=== PATIENT | female | born 1955 | race Caucasian/White ===

== ENCOUNTER 2019-11-16 22:37 | Inpatient (IN) | payer BC ==
[2019-11-16 23:12] LABS: BASO % 1.7 % (0-2.0); EOS % 0.7 % (0-4.5); HEMATOCRIT 42.2 % (32.4-45.2); HEMOGLOBIN 13.8 GM/dl (10.7-15.3); LYMPH % 17.4 % (8-40); MCH 27.8 pg (25.7-33.7); MCHC 32.6 g/dl (32.0-36.0); MEAN CELL VOLUME 85.1 fl (80-96); MONO % 6.7 % (3.8-10.2); NEUT % 73.5 % (42.8-82.8); PLATELET COUNT 267 K/MM3 (134-434); RBC 4.96 M/mm3 (3.60-5.2); RDW 13.6 % (11.6-15.6); WHITE BLOOD COUNT 16.6 K/mm3 (4.0-10.8)
--- NOTE | 2019-11-16 23:25 | PDOC ---
Documentation entered by Yamilex Hermosillo SCRIBE, acting as scribe for Davion Miller MD. Davion Miller MD: This documentation has been prepared by the Jaimee valles Xhesika, SCRIBE, under my direction and personally reviewed by me in its entirety. I confirm that the documentation accurately reflects all work, treatment, procedures, and medical decision making performed by me. History of Present Illness - General Chief Complaint: Injury Stated Complaint: LESION/PAIN LT 1ST TOE Time Seen by Provider: 11/16/19 22:39 History Source: Patient Exam Limitations: No Limitations - History of Present Illness Initial Comments: 11/16/19 22:57 The patient is a 64 year old female with a significant PMH of DM, HTN, HLD, Pacemaker, Lung Ca (s/p lumpectomy and chemo, currently in remission) arthritis , neuropathy who presents to the emergency department for Left first toe pain, erythema, and lesion. The patient states she was cutting her toenails 4 days ago (11/12/2019) because of an ingrown toenail. Pt reports yesterday her L toe was erythematous, however, today the patient woke up and noticed a blister on her L toe prompting her arrival to the ED. The patient denies chest pain, shortness of breath, headache and dizziness. Denies fever, chills, cough, nausea, vomiting. Allergies: NKDA PCP: Rodney Villegas Past History - Past Medical History Allergies/Adverse Reactions: Allergies Allergy/AdvReac Type Severity Reaction Status Date / Time No Known Allergies Allergy Unverified 11/16/19 23:46 Home Medications: Ambulatory Orders Aspirin [Aspirin EC] 81 mg PO DAILY 11/16/19 Folic Acid 1 mg PO DAILY 11/16/19 Insulin Glargine,Hum.rec.anlog [Lantus] 19 unit SQ HS 11/16/19 Insulin Lispro [Humalog] 15 unit SQ TID 11/16/19 Lisinopril 30 mg PO DAILY 11/16/19 Metformin HCl [Glucophage] 500 mg PO BID 11/16/19 Naproxen [Naprosyn -] 500 mg PO BID PRN 11/16/19 Pregabalin 50 mg PO BID 11/16/19 Rosuvastatin Calcium 20 mg PO HS 11/16/19 Tramadol HCl 50 mg PO PRN PRN 11/16/19 Review of Systems - Review of Systems Able to Perform ROS?: Yes Comments:: 11/16/19 22:57 Constitutional - Pt denies Fever, Chills, weakness, HEENT: denies vision changes, sore throat Respiratory: Denies cough, sob, hemoptysis Cardiac: denies chest pain, palpitations, lightheadedness, leg swelling Abd/GI: denies abd pain, nausea, vomiting, blood per rectum, melena, diarrhea : denies dysuria, frequency, discharge Musculskelatal - denies back pain, joint swelling. +Left Great toe pain and lesion. skin - denies bruising, erythema, rash neurological: denies headache, numbness, focal weakness, tingling, ataxia, weakness hematologic: denies anemia, easy bruising, easy bleeding *Physical Exam - Physical Exam 11/16/19 23:20 GENERAL: The patient is awake, alert, and fully oriented, Nontoxic - in no acute distress. HEAD: Normocephalic, atraumatic. EYES: extraocular movements intact, sclera anicteric, conjunctiva clear. ENT: Normal voice, Moist mucous membranes. NECK: Normal range of motion, supple LUNGS: Breath sounds equal, clear to auscultation bilaterally. No wheezes, no rhonchi, no rales. HEART: Regular rate and rhythm, normal S1 and S2 without murmur, rub or gallop. ABDOMEN: Soft, nontender, No guarding, no rebound. No CVA tenderness EXTREMITIES: Normal range of motion, no edema, R toe - large blood filled blister on dorsum of big toe, mild erythema and proximal streaking over dorsal MCP. mildly tender to palpation diffusely NEUROLOGICAL: No facial assymetry, Normal speech, movin gall 4 extremities spontaneously and symmetrically PSYCH: Normal mood, normal affect. SKIN: Warm, Dry, normal turgor, Heart Score/ECG Review - ECG Impressions Comment:: 11/17/19 01:24 Twelve-lead EKG was performed and reviewed by me. Rate of 72 Paced rhythm PVCs present ED Treatment Course - LABORATORY CBC & Chemistry Diagram: 11/16/19 23:00 11/16/19 23:00 - RADIOLOGY Radiology Studies Ordered: Category Date Time Status FOOT-LEFT [RAD] Stat Radiology 11/16/19 22:45 Ordered Medical Decision Making - Medical Decision Making 11/16/19 23:22 64 year old female with a significant PMH of DM, HTN, HLD, Pacemaker, Lung Ca ( s/p lumpectomy and chemo, currently in remission) arthritis, neuropathy Presenting with formation of a blister on her right great toe approximately 4 days after cutting her nails. Patient complaining of pain without any fever, chills, warmth, discharge. The patient does have a large blood-filled blister on the right great toe with mild erythema and streaking. Concern for traumatic blister versus mild infection. Will obtain blood work to further evaluate We will give the patient antibiotics 11/16/19 23:46 Patient's lab work was reviewed noted for leukocytosis of 16. As the patient is a poorly controlled diabetic with a foot wound and white count will admit the patient for IV antibiotics No signs of osteo-on my wet read of the toe xray 11/17/19 00:04 case dw CONTESTANT COORDINATOR Sharmin agree with admission for further management of foot infection in a diabetic stable for med surg under dr. Upton's service Case discussed in detail with admitting physician including history, physical exam and ancillary studies. Admitting physician has assumed care for the patient, will follow all pending diagnostics and will complete the evaluation and treatment. Discharge - Discharge Information Problems reviewed: Yes Clinical Impression/Diagnosis: Wound of foot Diabetes Qualifiers: Diabetes mellitus type: other specified (including MILTON) Diabetes mellitus prison insulin use: unspecified prison insulin use status Diabetes mellitus complication status: with other specified complication Qualified Code(s ): E13.69 - Other specified diabetes mellitus with other specified complication Condition: Stable - Admission No - Follow up/Referral Referrals: ON STAFF,NOT [Primary Care Provider] - - Patient Discharge Instructions - Post Discharge Activity
[2019-11-16 23:32] LABS: ALBUMIN 3.6 g/dl (3.4-5.0); BILIRUBIN,TOTAL 0.8 mg/dl (0.2-1); CALCIUM 9.8 mg/dl (8.5-10); CREATININE 0.8 mg/dl (0.55-1.3); POTASSIUM 5.1 mmol/L (3.5-5.1); TOT PROT 7.2 g/dl (6.4-8.2)
[2019-11-17] MEDS ORDERED: traMADol HCL 50 MG TABLET PO PRN (00:12)
[2019-11-17] MEDS ORDERED: INSULIN (NOVOLOG) ASPART 100 UNITS/ML 10ML VIAL SQ STA (00:17)
[2019-11-17] MEDS ORDERED: INSULIN REGULAR HUMAN 100 UNITS/ML *VIAL ONE (00:48)
[2019-11-17] MEDS ORDERED: INSULIN SLIDING SCALE (NOVOLOG) 1 VIAL SQ SCH (07:00)
[2019-11-17 07:59] LABS: BASO % 0.2 % (0-2.0); EOS % 0.8 % (0-4.5); HEMATOCRIT 38.6 % (32.4-45.2); HEMOGLOBIN 12.7 GM/dl (10.7-15.3); LYMPH % 17.2 % (8-40); MCHC 32.8 g/dl (32.0-36.0); MEAN CELL VOLUME 85.2 fl (80-96); MONO % 5.9 % (3.8-10.2); NEUT % 75.9 % (42.8-82.8); PLATELET COUNT 217 K/MM3 (134-434); RBC 4.53 M/mm3 (3.60-5.2); RDW 13.4 % (11.6-15.6); WHITE BLOOD COUNT 12.8 K/mm3 (4.0-10.8)
[2019-11-17 08:07] LABS: CALCIUM 9.1 mg/dl (8.5-10); CREATININE 0.5 mg/dl (0.55-1.3)
[2019-11-17] MEDS: traMADol HCL 50 MG TABLET PO PRN ×3 (08:34→23:52)
[2019-11-17] MEDS: ASPIRIN COATED 81 MG TABLET.EC PO SCH (09:12)
[2019-11-17] MEDS: PREGABALIN 50 MG CAPSULE PO SCH ×2 (09:12→21:15)
[2019-11-17] MEDS: LISINOPRIL 10 MG TABLET (FP) PO SCH (09:12)
[2019-11-17] MEDS: FOLIC ACID 1 MG TABLET (FP) PO SCH (09:12)
[2019-11-17] MEDS ORDERED: PATIENT'S OWN MEDICATION (NON-FORMULARY) (Lisinopril [Lisinopril] 30 MG) PO SCH (10:00)
--- NOTE | 2019-11-17 13:10 | EKG ---
Test Reason : Blood Pressure : / mmHG Vent. Rate : 072 BPM Atrial Rate : 072 BPM P-R Int : 148 ms QRS Dur : 162 ms QT Int : 454 ms P-R-T Axes : 068 210 073 degrees QTc Int : 497 ms Atrial-sensed ventricular-paced rhythm ABNORMAL ECG NO PREVIOUS ECGS AVAILABLE Confirmed by JAVIER EVANS MD ([id number]) on 11/17/2019 1:10:10 PM Referred By: JORGE Confirmed By:JAVIER EVANS MD
[2019-11-17] MEDS ORDERED: INSULIN (NOVOLOG) ASPART 100 UNITS/ML 10ML VIAL ONE ×2 (16:39→21:22)
--- NOTE | 2019-11-17 17:08 | CON.ID ---
Consult Consult Specialty:: infectious diseases Referred by:: svitlana patel Reason for Consultation:: ggangrene and abscess of the toe - History of Present Illness Chief Complaint: swelling and gangrene of the toe History of Present Illness: 64 year old female with a significant PMH of DM, HTN, HLD, Pacemaker, Lung Ca ( s/p lumpectomy and chemo, currently in remission) arthritis and neuropathy admitted for pain in the left toe Pt reports she was cutting her nails 4 days ago because of an ingrown toenail. The day after she began to notice her L toe was erythematous and yesterday she woke up with a blister on her toe prompting her to the ER. Denies any fever or chills. Denies any nausea or vomiting the toe is painful and swollen - History Source History Provided By: Patient Limitations to Obtaining History: No Limitations - Alcohol/Substance Use Hx Alcohol Use: No - Smoking History Smoking history: Never smoked Have you smoked in the past 12 months: No Home Medications - Allergies Allergies/Adverse Reactions: Allergies Allergy/AdvReac Type Severity Reaction Status Date / Time Penicillins AdvReac Rash Verified 11/17/19 03:33 - Home Medications Home Medications: Ambulatory Orders Aspirin [Aspirin EC] 81 mg PO DAILY 11/16/19 Folic Acid 1 mg PO DAILY 11/16/19 Insulin Glargine,Hum.rec.anlog [Lantus] 19 unit SQ HS 11/16/19 Insulin Lispro [Humalog] 15 unit SQ TID 11/16/19 Lisinopril 30 mg PO DAILY 11/16/19 Metformin HCl [Glucophage] 500 mg PO BID 11/16/19 Naproxen [Naprosyn -] 500 mg PO BID PRN 11/16/19 Pregabalin 50 mg PO BID 11/16/19 Rosuvastatin Calcium 20 mg PO HS 11/16/19 Tramadol HCl 50 mg PO PRN PRN 11/16/19 Review of Systems - Review of Systems Constitutional: reports: No Symptoms Eyes: reports: No Symptoms HENT: reports: No Symptoms Neck: reports: No Symptoms Cardiovascular: reports: No Symptoms Respiratory: reports: No Symptoms Gastrointestinal: reports: No Symptoms Genitourinary: reports: No Symptoms Musculoskeletal: reports: Other Integumentary: reports: Blister, Change in Color, Other Neurological: reports: No Symptoms Endocrine: reports: No Symptoms Hematology/Lymphatic: reports: No Symptoms Psychiatric: reports: No Symptoms Physical Exam Vital Signs: Vital Signs Temperature 97.6 F 11/17/19 14:06 Pulse Rate 113 H 11/17/19 14:33 Respiratory Rate 18 11/17/19 14:33 Blood Pressure 144/90 11/17/19 14:33 O2 Sat by Pulse Oximetry (%) 95 11/17/19 14:06 Constitutional: Yes: Well Nourished, No Distress, Calm Eyes: Yes: Conjunctiva Clear HENT: Yes: Atraumatic, Normocephalic Neck: Yes: Supple, Trachea Midline Respiratory: Yes: Regular, CTA Bilaterally Gastrointestinal: Yes: Normal Bowel Sounds, Soft Musculoskeletal: Yes: Other Extremities: Yes: Other Integumentary: Yes: Erythema, Other (abscess/probably gangrene of the toe) Wound/Incision: Yes: Other (discoloration and abscess) Neurological: Yes: Alert, Oriented Psychiatric: Yes: Alert, Oriented Labs: CBC, BMP 11/17/19 07:25 11/17/19 07:25 Imaging - Results X-ray: Report Reviewed, Image Reviewed Assessment/Plan patient with injury to the toe nail and with abscess and discoloration of the toe worry is about osteo and gangrene patient was started on clinda i am going to add meropenam need surgery as early as possible rest as per the team
[2019-11-17] MEDS: INSULIN SLIDING SCALE (NOVOLOG) 1 VIAL SQ SCH ×2 (17:10→21:26)
--- NOTE | 2019-11-17 17:25 | CONSULT ---
Consult - text type - Consultation Consultation Note: 64 y/o diabetic female being seen at bedside with large fluctuance and ingrown nail on the left hallux. States to me roughly 2 weeks ago started to have pain. Tried to clip the nail back and then a large infection formed. States her last a1c was > 11% and her sugars usually run in the upper 300's. Denies any other pedal complaints. O: Left: DP/PT 2/4, Temp gradient warm to the forefoot Large abscess and ingrown nail noted on the lateral border of the left hallux and dorsal hallux, erythema streaking proximally along the 1st MPJ, + edema, pain on palpation on the hallux as well as along medial aspect of the foot, + Purulent drainange + mild malodor A: 64 y/o uncontrolled diabetic female with abscess and paronychia and ? osteo left hallux. P: Evaluated and reviewed Abscess drained at the bedside wo any complication c and s obtained from fluid Discussed with patient the possibility she may need to go to the OR early next week for flush and nail removal disussed with the COSMETICIAN; she will order a triphasic bone scan to eval for any underlying osteo Will f/u tomorrow with patient and if no improvement or + osteo will plan for debridment next week. Will follow. [facility] HEATOND to wound for now.
[2019-11-17] MEDS: CLINDAMYCIN 600MG PREMIX IVPB 600 MG/50 ML BAG IVPB SCH (17:59)
[2019-11-17] MEDS: BACITRACIN 15 GM TUBE TOPICAL OINTMENT TP SCH (17:59)
[2019-11-17] MEDS ORDERED: DEXTROSE 5%-WATER 100 ML IVPB ONE (18:15)
[2019-11-17] MEDS ORDERED: MEROPENEM 1 GM VIAL (RESTRICTED TO ID) IVPB ONE (18:15)
[2019-11-17] MEDS: MEROPENEM 1 GM in DEXTROSE 5%-WATER 100 ML IVPB SCH (18:28)
[2019-11-17] MEDS: ROSUVASTATIN CA 20 MG TABLET (FP) PO SCH (21:15)
--- NOTE | 2019-11-17 22:06 | HP ---
Documentation entered by Kala Skelton SCRIBE, acting as scribe for Jane Grossman NP. CHIEF COMPLAINT: Left toe wound PCP: Dr. Ever Stevens HISTORY OF PRESENT ILLNESS: 64 year-old female with a PMH significant for HTN, HLD, PPM, Type II NIDDM, neuropathy, and breast cancer a (s/p lumpectomy and chemo, currently in remission), presented to the ED for evaluation of left great toe pain. Four days ago the patient cut an ingrown toenail on the toe. The next day it became erythematous. Yesterday she noticed a blister. She came to the ED today for evaluation. She denies fever, sweats, chills. ER course was notable for: (1) WBC 16.6k, afebrile (2) (3) Recent Travel: From [place] PAST MEDICAL HISTORY: Hypertension Hyperlipidemia PPM Type II NIDDM Neuropathy Breast cancer PAST SURGICAL HISTORY: None reported. Social History: lives in [place], visiting relatives in the area Smoking: None reported. Alcohol:None reported. Drugs: None reported. Allergies Penicillins Adverse Reaction (Verified 11/17/19 03:33) Rash HOME MEDICATIONS: Home Medications Medication Instructions Recorded Aspirin [Aspirin EC] 81 mg PO DAILY 11/16/19 Folic Acid 1 mg PO DAILY 11/16/19 Insulin Glargine,Hum.rec.anlog 19 unit SQ HS 11/16/19 [Lantus] Insulin Lispro [Humalog] 15 unit SQ TID 11/16/19 Lisinopril 30 mg PO DAILY 11/16/19 Metformin HCl [Glucophage] 500 mg PO BID 11/16/19 Naproxen [Naprosyn -] 500 mg PO BID PRN 11/16/19 Pregabalin 50 mg PO BID 11/16/19 Rosuvastatin Calcium 20 mg PO HS 11/16/19 Tramadol HCl 50 mg PO PRN PRN 11/16/19 REVIEW OF SYSTEMS CONSTITUTIONAL: Absent: fever, chills, diaphoresis, generalized weakness, malaise, loss of appetite, weight change HEENT: Absent: rhinorrhea, nasal congestion, throat pain, throat swelling, difficulty swallowing, mouth swelling, ear pain, eye pain, visual changes CARDIOVASCULAR: Absent: chest pain, syncope, palpitations, irregular heart rate, lightheadedness , peripheral edema RESPIRATORY: Absent: cough, shortness of breath, dyspnea with exertion, orthopnea, wheezing, stridor, hemoptysis GASTROINTESTINAL: Absent: abdominal pain, abdominal distension, nausea, vomiting, diarrhea, constipation, melena, hematochezia GENITOURINARY: Absent: dysuria, frequency, urgency, hesitancy, hematuria, flank pain, genital pain MUSCULOSKELETAL: Absent: myalgia, arthralgia, joint swelling, back pain, neck pain SKIN: +left toe pain, redness, swelling, blistering Absent: rash, itching, pallor HEMATOLOGIC/IMMUNOLOGIC: Absent: easy bleeding, easy bruising, lymphadenopathy, frequent infections ENDOCRINE: Absent: unexplained weight gain, unexplained weight loss, heat intolerance, cold intolerance NEUROLOGIC: Absent: headache, focal weakness or paresthesias, dizziness, unsteady gait, seizure, mental status changes, bladder or bowel incontinence PSYCHIATRIC: Absent: anxiety, depression, suicidal or homicidal ideation, hallucinations. PHYSICAL EXAMINATION Vital Signs - 24 hr 11/16/19 11/17/19 11/17/19 22:38 01:44 03:36 Temperature 97.9 F 98.2 F Pulse Rate 84 96 H Respiratory 16 18 Rate Blood Pressure 129/66 136/82 O2 Sat by Pulse 96 96 Oximetry (%) 11/17/19 06:00 Temperature 98.5 F Pulse Rate 67 Respiratory 18 Rate Blood Pressure 138/56 L O2 Sat by Pulse 97 Oximetry (%) GENERAL: Awake, alert, and fully oriented, in no acute distress. HEAD: Normal with no signs of trauma. EYES: Pupils equal, round and reactive to light, extraocular movements intact, sclera anicteric, conjunctiva clear. No lid lag. EARS, NOSE, THROAT: Ears normal, nares patent, oropharynx clear without exudates. Moist mucous membranes. NECK: Normal range of motion, supple without lymphadenopathy, JVD, or masses. LUNGS: Breath sounds equal, clear to auscultation bilaterally. No wheezes, and no crackles. No accessory muscle use. HEART: Regular rate and rhythm, normal S1 and S2 without murmur, rub or gallop. ABDOMEN: Soft, nontender, not distended, normoactive bowel sounds, no guarding, no rebound, no masses. No hepatomegaly or splenomegaly. MUSCULOSKELETAL: Normal range of motion at all joints. No bony deformities or tenderness. No CVA tenderness. UPPER EXTREMITIES: 2+ pulses, warm, well-perfused. No cyanosis. No clubbing. No peripheral edema. LOWER EXTREMITIES: 2+ pulses, warm, well-perfused. No calf tenderness. No peripheral edema. NEUROLOGICAL: Cranial nerves II-XII intact. Normal speech. Normal gait. PSYCHIATRIC: Cooperative. Good eye contact. Appropriate mood and affect. SKIN: Large abscess lateral border of left hallus, erythema, tender Laboratory Results - last 24 hr 11/16/19 11/16/19 11/17/19 23:00 23:00 06:11 WBC 16.6 H RBC 4.96 Hgb 13.8 Hct 42.2 MCV 85.1 MCH 27.8 MCHC 32.6 RDW 13.6 Plt Count 267 MPV 8.0 Absolute Neuts (auto) 12.2 Neutrophils % 73.5 Lymphocytes % 17.4 Monocytes % 6.7 Eosinophils % 0.7 Basophils % 1.7 Sodium 134 L Potassium 5.1 Chloride 99 Carbon Dioxide 30 Anion Gap 5 L BUN 18.0 Creatinine 0.8 Est GFR (CKD-EPI)AfAm 90.94 Est GFR (CKD-EPI)NonAf 78.46 POC Glucometer 332 Random Glucose 378 H Calcium 9.8 Total Bilirubin 0.8 AST 14 L ALT 12 L Alkaline Phosphatase 75 Total Protein 7.2 Albumin 3.6 11/17/19 11/17/19 07:25 07:25 WBC 12.8 H RBC 4.53 Hgb 12.7 Hct 38.6 MCV 85.2 MCH 28.0 MCHC 32.8 RDW 13.4 Plt Count 217 MPV 8.0 Absolute Neuts (auto) 9.7 Neutrophils % 75.9 Lymphocytes % 17.2 Monocytes % 5.9 Eosinophils % 0.8 Basophils % 0.2 Sodium 133 L Potassium 4.0 Chloride 100 Carbon Dioxide 27 Anion Gap 6 L BUN 14.0 Creatinine 0.5 L Est GFR (CKD-EPI)AfAm 119.38 Est GFR (CKD-EPI)NonAf 103.00 POC Glucometer Random Glucose 302 H Calcium 9.1 Total Bilirubin AST ALT Alkaline Phosphatase Total Protein Albumin ASSESSMENT/PLAN: 64 year-old female with a PMH significant for HTN, HLD, PPM, Type II NIDDM, neuropathy, admitted for abscess of left great toe. Cellulitis, abscess left hallux --WBC 16.6, afebrile --start Clinda, meropenem --ID to follow --Podiatry to follow; spoke with , sent photo, will see patient today Hypertension --continue lisinopril Hyperlipidemia --continue rosuvastatin Type II NIDDM Neuropathy --Novolog sliding scale coverage FEN Fluids: PO intake adequate Electrolytes: replete as indicated Nutrition: diabetic, low sodium DVT prophylaxis: subq heparin Dispo: continues to require inpatient care. Full code,. Dispo: continues to require inpatient care. Full code. Visit type - Emergency Visit Emergency Visit: Yes ED Registration Date: 11/17/19 Care time: The patient presented to the Emergency Department on the above date and was hospitalized for further evaluation of their emergent condition. - New Patient This patient is new to me today: Yes Date on this admission: 11/19/19 - Critical Care Critical Care patient: No Jane Grossman, INSPECTOR TESTER SORTER: This documentation has been prepared by the Costa valles Maria, SCRIBE, under my direction and personally reviewed by me in its entirety. I confirm that the documentation accurately reflects all work, treatment, procedures, and medical decision making performed by me.
[2019-11-18] MEDS ORDERED: DEXTROSE 5%-WATER 100 ML IVPB ONE ×4 (01:22→18:11)
[2019-11-18] MEDS ORDERED: MEROPENEM 1 GM VIAL (RESTRICTED TO ID) IVPB ONE ×3 (01:23→18:12)
[2019-11-18] MEDS: CLINDAMYCIN 600MG PREMIX IVPB 600 MG/50 ML BAG IVPB SCH ×3 (01:26→18:18)
[2019-11-18] MEDS: MEROPENEM 1 GM in DEXTROSE 5%-WATER 100 ML IVPB SCH ×3 (02:06→18:18)
[2019-11-18] MEDS: traMADol HCL 50 MG TABLET PO PRN ×2 (06:18→21:37)
[2019-11-18] MEDS ORDERED: INSULIN (NOVOLOG) ASPART 100 UNITS/ML 10ML VIAL ONE (06:38)
[2019-11-18] MEDS: INSULIN SLIDING SCALE (NOVOLOG) 1 VIAL SQ SCH ×4 (06:46→21:23)
--- NOTE | 2019-11-18 07:34 | PN ---
Progress Note (short form) - Note Progress Note: Podiatry F/U: Seen/evaluated at bedside NAD. Pain is slowly improving. S/p incision and drainage at bedside left great toe by my partner yesterday. Afebrile. Denies F/ V/N/C/SOB/CP. GAGE: L foot: pedal pulses palpable, TG warm-warm, CFT brisk to toes left foot. Dorsal hallux fluctuance is improving, surrounding cellulitis to 1st MTPJ and first interspace marginally improved, moderate tenderness to palpation. No purulent drainage, no fluctuance, no probing tobone, no soft tissue crepitus. Wound Cx: pending Bone scan: pending Imp: 64 year old diabetic female with left hallux abscess/cellulitis 1. IV abx per ID 2. Continue local care 3. For bone scan 4. F/u cultures 5. Will follow. Genesis Yung DPM
[2019-11-18 08:22] LABS: BASO % 0.4 % (0-2.0); EOS % 1.1 % (0-4.5); HEMATOCRIT 37.9 % (32.4-45.2); HEMOGLOBIN 12.4 GM/dl (10.7-15.3); MCH 27.7 pg (25.7-33.7); MCHC 32.8 g/dl (32.0-36.0); MEAN CELL VOLUME 84.5 fl (80-96); MEAN PLT VOLUME 7.9 fl (7.5-11.1); MONO % 6.2 % (3.8-10.2); NEUT % 73.3 % (42.8-82.8); PLATELET COUNT 229 K/MM3 (134-434); RBC 4.49 M/mm3 (3.60-5.2); RDW 13.4 % (11.6-15.6); WHITE BLOOD COUNT 11.1 K/mm3 (4.0-10.8)
[2019-11-18 08:42] LABS: ALBUMIN 2.9 g/dl (3.4-5.0); BILIRUBIN,TOTAL 0.6 mg/dl (0.2-1); CREATININE 0.5 mg/dl (0.55-1.3); MAGNESIUM 1.4 mg/dL (1.8-2.4); POTASSIUM 4.2 mmol/L (3.5-5.1); TOT PROT 6.2 g/dl (6.4-8.2)
[2019-11-18] MEDS: ASPIRIN COATED 81 MG TABLET.EC PO SCH (10:11)
[2019-11-18] MEDS: BACITRACIN 15 GM TUBE TOPICAL OINTMENT TP SCH (10:11)
[2019-11-18] MEDS: FOLIC ACID 1 MG TABLET (FP) PO SCH (10:12)
[2019-11-18] MEDS: PREGABALIN 50 MG CAPSULE PO SCH ×2 (10:12→21:22)
[2019-11-18] MEDS: LISINOPRIL 10 MG TABLET (FP) PO SCH (10:13)
[2019-11-18] MEDS ORDERED: MAGNESIUM SULF 50% (8.12 MEQ/2 ML-1 GM VIAL) IVPB ONE (10:15)
--- NOTE | 2019-11-18 10:33 | PN ---
Physical Exam: SUBJECTIVE: Patient seen and examined at bedside, still c/o Left great toe pain , no other complains. OBJECTIVE: Vital Signs Period Temp Pulse Resp BP Sys/Combs Pulse Ox Last 24 Hr 97.6 F-98.4 F 70-113 17-18 104-144/50-90 95-97 GENERAL: The patient is awake, alert, and fully oriented, in no acute distress. HEAD: Normal with no signs of trauma. EYES: PERRL, extraocular movements intact, sclera anicteric, conjunctiva clear. No ptosis. ENT: Ears normal, nares patent, oropharynx clear without exudates, moist mucous membranes. NECK: Trachea midline, full range of motion, supple. LUNGS: Breath sounds equal, clear to auscultation bilaterally, no wheezes, no crackles, no accessory muscle use. HEART: Regular rate and rhythm, S1, S2 without murmur, rub or gallop. ABDOMEN: Soft, nontender, nondistended, normoactive bowel sounds, no guarding, no rebound, no hepatosplenomegaly, no masses. EXTREMITIES: 2+ pulses, warm, well-perfused, no edema, Left great toe dsg intact, no bleeding noted, pulse intact. NEUROLOGICAL: Cranial nerves II through XII grossly intact. Normal speech, gait not observed. PSYCH: Normal mood, normal affect. SKIN: Warm, dry, normal turgor, no rashes or lesions noted Laboratory Results - last 24 hr 11/17/19 11/17/19 11/17/19 07:25 11:29 16:31 WBC RBC Hgb Hct MCV MCH MCHC RDW Plt Count MPV Absolute Neuts (auto) Neutrophils % Lymphocytes % Monocytes % Eosinophils % Basophils % Sodium Potassium Chloride Carbon Dioxide Anion Gap BUN Creatinine Est GFR (CKD-EPI)AfAm Est GFR (CKD-EPI)NonAf POC Glucometer 287 348 Random Glucose Hemoglobin A1c % 10.2 H Calcium Magnesium Total Bilirubin AST ALT Alkaline Phosphatase Total Protein Albumin 11/17/19 11/18/19 11/18/19 21:17 06:20 07:40 WBC 11.1 H RBC 4.49 Hgb 12.4 Hct 37.9 MCV 84.5 MCH 27.7 MCHC 32.8 RDW 13.4 Plt Count 229 MPV 7.9 Absolute Neuts (auto) 8.2 Neutrophils % 73.3 Lymphocytes % 19.0 Monocytes % 6.2 Eosinophils % 1.1 Basophils % 0.4 Sodium Potassium Chloride Carbon Dioxide Anion Gap BUN Creatinine Est GFR (CKD-EPI)AfAm Est GFR (CKD-EPI)NonAf POC Glucometer 320 314 Random Glucose Hemoglobin A1c % Calcium Magnesium Total Bilirubin AST ALT Alkaline Phosphatase Total Protein Albumin 11/18/19 07:40 WBC RBC Hgb Hct MCV MCH MCHC RDW Plt Count MPV Absolute Neuts (auto) Neutrophils % Lymphocytes % Monocytes % Eosinophils % Basophils % Sodium 133 L Potassium 4.2 Chloride 98 Carbon Dioxide 28 Anion Gap 7 L BUN 11.0 Creatinine 0.5 L Est GFR (CKD-EPI)AfAm 119.38 Est GFR (CKD-EPI)NonAf 103.00 POC Glucometer Random Glucose 294 H Hemoglobin A1c % Calcium 9.0 Magnesium 1.4 L Total Bilirubin 0.6 AST 11 L ALT 10 L Alkaline Phosphatase 70 Total Protein 6.2 L Albumin 2.9 L Active Medications Generic Name Dose Route Start Last Admin Trade Name Freq PRN Reason Stop Dose Admin Aspirin 81 mg 11/17/19 10:00 11/18/19 10:11 Ecotrin - PO 81 mg DAILY SHRUTHI Administration Bacitracin 1 applic 11/17/19 18:00 11/18/19 10:11 Bacitracin - TP 1 applic DAILY SHRUTHI Administration Folic Acid 1 mg 11/17/19 10:00 11/18/19 10:12 Folic Acid - PO 1 mg DAILY SHRUTHI Administration Clindamycin Phosphate 600 mg in 50 mls @ 100 mls/hr 11/17/19 18:00 11/18/19 10:10 Cleocin 600 Mg Premix Ivpb - IVPB 100 mls/hr Q8H-IV SHRUTHI Administration Protocol Meropenem 1 gm/ Dextrose 100 mls @ 200 mls/hr 11/17/19 18:00 11/18/19 10:13 IVPB 200 mls/hr Q8H-IV SHRUTHI Administration Insulin Aspart 1 vial 11/17/19 16:30 11/18/19 06:46 Novolog Vial Sliding Scale - SQ 6 units ACHS SHRUTHI Administration Protocol Lisinopril 30 mg 11/17/19 10:00 11/18/19 10:13 Prinivil PO Not Given DAILY SHRUTHI Pregabalin 50 mg 11/17/19 10:00 11/18/19 10:12 Lyrica - PO 50 mg BID SHRUTHI Administration Rosuvastatin Calcium 20 mg 11/17/19 22:00 11/17/19 21:15 Crestor - PO 20 mg HS SHRUTHI Administration Tramadol HCl 50 mg 11/17/19 08:11 11/18/19 06:18 Ultram - PO 50 mg Q6H PRN Administration PAIN LEVEL 6-10 ASSESSMENT/PLAN: 64 year old female with a significant PMH of DM, HTN, HLD, Pacemaker, Lung Ca ( s/p lumpectomy and chemo, currently in remission) arthritis and neuropathy admitted for pain in the left toe. * Left toe infection -wbc 16.6> 12>11.2 - afebrile - ID following - will cont on Clinda and Brennan - sx following, s/p abscess drained - Bone scan ordered to r/o osteo - wound culture pending - pain control - wound care * HTN- BP low - will hold off on Lisinopril - will monitor BP closely * DM- BS elevated - Hgb Alc 10.2 - FS Ac& HS - Insulin sliding scale and Levemir *HDL - on Statin * Neuropathy - on Lyrica * Hyponatremia - s/p IVF - PO intake encouraged *VTE : Heparin SQ F/E/N: Diabetic diet Replace electrolytes as needed Visit type - Emergency Visit Emergency Visit: Yes ED Registration Date: 11/17/19 Care time: The patient presented to the Emergency Department on the above date and was hospitalized for further evaluation of their emergent condition. - New Patient This patient is new to me today: Yes Date on this admission: 11/19/19 - Critical Care Critical Care patient: No
--- NOTE | 2019-11-18 12:55 | PN ---
Progress Note, Physician History of Present Illness: Pt c/o pain in Lt foot with touch but otherwise has no other specific complaints. - Current Medication List Current Medications: Active Medications Aspirin (Ecotrin -) 81 mg PO DAILY [facility] Last Admin: 11/18/19 10:11 Dose: 81 mg Bacitracin (Bacitracin -) 1 applic TP DAILY [facility] Last Admin: 11/18/19 10:11 Dose: 1 applic Folic Acid (Folic Acid -) 1 mg PO DAILY [facility] Last Admin: 11/18/19 10:12 Dose: 1 mg Heparin Sodium (Porcine) (Heparin -) 5,000 unit SQ TID [facility] Clindamycin Phosphate (Cleocin 600 Mg Premix Ivpb -) 600 mg in 50 mls @ 100 mls /hr IVPB Q8H-IV [facility]; Protocol Last Admin: 11/18/19 10:10 Dose: 100 mls/hr Meropenem 1 gm/ Dextrose 100 mls @ 200 mls/hr IVPB Q8H-IV [facility] Last Admin: 11/18/19 10:13 Dose: 200 mls/hr Insulin Aspart (Novolog Vial Sliding Scale -) 1 vial SQ [facility]; Protocol Last Admin: 11/18/19 06:46 Dose: 6 units Insulin Detemir (Levemir Vial) 19 units SQ [facility] Pregabalin (Lyrica -) 50 mg PO BID [facility] Last Admin: 11/18/19 10:12 Dose: 50 mg Rosuvastatin Calcium (Crestor -) 20 mg PO [facility] Last Admin: 11/17/19 21:15 Dose: 20 mg Tramadol HCl (Ultram -) 50 mg PO Q6H PRN PRN Reason: PAIN LEVEL 6-10 Last Admin: 11/18/19 06:18 Dose: 50 mg - Objective Vital Signs: Vital Signs Temperature 98.2 F 11/18/19 10:00 Pulse Rate 71 11/18/19 10:00 Respiratory Rate 18 11/18/19 10:00 Blood Pressure 96/45 L 11/18/19 10:00 O2 Sat by Pulse Oximetry (%) 95 11/18/19 10:00 Constitutional: Yes: No Distress, Calm Cardiovascular: Yes: Regular Rate and Rhythm Respiratory: Yes: Regular Gastrointestinal: Yes: Normal Bowel Sounds, Soft Genitourinary: Yes: WNL Wound/Incision: Yes: Dressing Dry and Intact Neurological: Yes: Alert, Oriented Labs: CBC, BMP 11/18/19 07:40 11/18/19 07:40 - ....Imaging X-ray: Report Reviewed Problem List - Problems (1) Diabetes Code(s): E11.9 - TYPE 2 DIABETES MELLITUS WITHOUT COMPLICATIONS Qualifiers: Diabetes mellitus type: other specified (including MILTON) 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
[2019-11-18] MEDS: HEPARIN NA (PORCINE) 5,000 UNITS/ML 1ML VIAL SQ SCH ×2 (15:17→21:22)
[2019-11-18] MEDS: ROSUVASTATIN CA 20 MG TABLET (FP) PO SCH (21:22)
[2019-11-18] MEDS ORDERED: INSULIN (LEVEMIR) 100 UNITS/ML UNITS SQ SCH (22:00)
[2019-11-19] MEDS ORDERED: MEROPENEM 1 GM VIAL (RESTRICTED TO ID) IVPB ONE ×4 (00:02→17:38)
[2019-11-19] MEDS ORDERED: DEXTROSE 5%-WATER 100 ML IVPB ONE ×3 (00:02→17:32)
[2019-11-19] MEDS: CLINDAMYCIN 600MG PREMIX IVPB 600 MG/50 ML BAG IVPB SCH ×2 (01:30→09:35)
[2019-11-19] MEDS: MEROPENEM 1 GM in DEXTROSE 5%-WATER 100 ML IVPB SCH ×3 (02:54→17:31)
[2019-11-19] MEDS: traMADol HCL 50 MG TABLET PO PRN (02:54)
[2019-11-19] MEDS: INSULIN SLIDING SCALE (NOVOLOG) 1 VIAL SQ SCH ×4 (06:14→22:59)
[2019-11-19] MEDS: HEPARIN NA (PORCINE) 5,000 UNITS/ML 1ML VIAL SQ SCH (06:14)
[2019-11-19 08:51] LABS: BASO % 0.3 % (0-2.0); EOS % 1.7 % (0-4.5); HEMATOCRIT 36.8 % (32.4-45.2); HEMOGLOBIN 11.8 GM/dl (10.7-15.3); LYMPH % 25.1 % (8-40); MCH 27.1 pg (25.7-33.7); MEAN CELL VOLUME 84.7 fl (80-96); MEAN PLT VOLUME 7.9 fl (7.5-11.1); MONO % 8.8 % (3.8-10.2); NEUT % 64.1 % (42.8-82.8); PLATELET COUNT 263 K/MM3 (134-434); RBC 4.35 M/mm3 (3.60-5.2); RDW 13.4 % (11.6-15.6); WHITE BLOOD COUNT 10.1 K/mm3 (4.0-10.8)
[2019-11-19 09:32] LABS: ALBUMIN 2.7 g/dl (3.4-5.0); BILIRUBIN,TOTAL 0.7 mg/dl (0.2-1); CALCIUM 8.8 mg/dl (8.5-10); CREATININE 0.5 mg/dl (0.55-1.3); MAGNESIUM 1.5 mg/dL (1.8-2.4); POTASSIUM 3.9 mmol/L (3.5-5.1); TOT PROT 5.7 g/dl (6.4-8.2)
[2019-11-19] MEDS: ASPIRIN COATED 81 MG TABLET.EC PO SCH (09:34)
[2019-11-19] MEDS: FOLIC ACID 1 MG TABLET (FP) PO SCH (09:35)
[2019-11-19] MEDS: BACITRACIN 15 GM TUBE TOPICAL OINTMENT TP SCH (09:35)
[2019-11-19] MEDS: PREGABALIN 50 MG CAPSULE PO SCH ×2 (09:35→21:00)
--- NOTE | 2019-11-19 11:42 | PN ---
Physical Exam: SUBJECTIVE: Patient seen and examined at bedside, c/o left foot pain not relived by Tramadol. OBJECTIVE: Vital Signs Period Temp Pulse Resp BP Sys/Combs Pulse Ox Last 24 Hr 98.2 F-98.7 F 67-77 18-19 106-138/45-59 95-98 GENERAL: The patient is awake, alert, and fully oriented, in no acute distress. HEAD: Normal with no signs of trauma. EYES: PERRL, extraocular movements intact, sclera anicteric, conjunctiva clear. No ptosis. ENT: Ears normal, nares patent, oropharynx clear without exudates, moist mucous membranes. NECK: Trachea midline, full range of motion, supple. LUNGS: Breath sounds equal, clear to auscultation bilaterally, no wheezes, no crackles, no accessory muscle use. HEART: Regular rate and rhythm, S1, S2 without murmur, rub or gallop. ABDOMEN: Soft, nontender, nondistended, normoactive bowel sounds, no guarding, no rebound, no hepatosplenomegaly, no masses. EXTREMITIES: 2+ pulses, warm, well-perfused, no edema. NEUROLOGICAL: Cranial nerves II through XII grossly intact. Normal speech, gait not observed. PSYCH: Normal mood, normal affect. SKIN: Warm, dry, normal turgor, no rashes or lesions noted,Left great toe with edema, redness,tenderness,no drainage noted, no bleeding noted, pulse intact. Laboratory Results - last 24 hr 11/18/19 11/18/19 11/18/19 11:20 16:42 20:57 WBC RBC Hgb Hct MCV MCH MCHC RDW Plt Count MPV Absolute Neuts (auto) Neutrophils % Lymphocytes % Monocytes % Eosinophils % Basophils % Sodium Potassium Chloride Carbon Dioxide Anion Gap BUN Creatinine Est GFR (CKD-EPI)AfAm Est GFR (CKD-EPI)NonAf POC Glucometer 350 308 271 Random Glucose Calcium Magnesium Total Bilirubin AST ALT Alkaline Phosphatase Total Protein Albumin 11/19/19 11/19/19 11/19/19 05:33 08:43 08:43 WBC 10.1 RBC 4.35 Hgb 11.8 Hct 36.8 MCV 84.7 MCH 27.1 MCHC 32.0 RDW 13.4 Plt Count 263 MPV 7.9 Absolute Neuts (auto) 6.5 Neutrophils % 64.1 Lymphocytes % 25.1 Monocytes % 8.8 Eosinophils % 1.7 Basophils % 0.3 Sodium 135 L Potassium 3.9 Chloride 97 L Carbon Dioxide 28 Anion Gap 10 BUN 12.0 Creatinine 0.5 L Est GFR (CKD-EPI)AfAm 119.38 Est GFR (CKD-EPI)NonAf 103.00 POC Glucometer 188 Random Glucose 187 H Calcium 8.8 Magnesium 1.5 L Total Bilirubin 0.7 AST 11 L ALT 10 L Alkaline Phosphatase 67 Total Protein 5.7 L Albumin 2.7 L Active Medications Generic Name Dose Route Start Last Admin Trade Name Freq PRN Reason Stop Dose Admin Aspirin 81 mg 11/17/19 10:00 11/19/19 09:34 Ecotrin - PO 81 mg DAILY SHRUTHI Administration Bacitracin 1 applic 11/17/19 18:00 11/19/19 09:35 Bacitracin - TP 1 applic DAILY SHRUTHI Administration Folic Acid 1 mg 11/17/19 10:00 11/19/19 09:35 Folic Acid - PO 1 mg DAILY SHRUTHI Administration Heparin Sodium (Porcine) 5,000 unit 11/18/19 14:00 11/19/19 06:14 Heparin - SQ 5,000 unit TID SHRUTHI Administration Clindamycin Phosphate 600 mg in 50 mls @ 100 mls/hr 11/17/19 18:00 11/19/19 09:35 Cleocin 600 Mg Premix Ivpb - IVPB 100 mls/hr Q8H-IV SH[facility]UTHI Administration Protocol Meropenem 1 gm/ Dextrose 100 mls @ 200 mls/hr 11/17/19 18:00 11/19/19 09:35 IVPB 200 mls/hr Q8H-IV SHRUTHI Administration Insulin Aspart 1 vial 11/17/19 16:30 11/19/19 06:14 Novolog Vial Sliding Scale - SQ Not Given ACHS SHRUTHI Protocol Insulin Detemir 19 units 11/18/19 22:00 11/18/19 21:23 Levemir Vial SQ 19 units HS SHRUTHI Administration Magnesium Sulfate 1 gm 11/19/19 11:08 Magnesium Sulfate IVPB 11/19/19 11:09 ONCE ONE Oxycodone/Acetaminophen 2 combo 11/19/19 09:45 11/19/19 10:38 Percocet 5/325 - PO 2 combo Q6HPO PRN Administration PAIN LEVEL 4 - 6 Pregabalin 50 mg 11/17/19 10:00 11/19/19 09:35 Lyrica - PO 50 mg BID SHRUTHI Administration Rosuvastatin Calcium 20 mg 11/17/19 22:00 11/18/19 21:22 Crestor - PO 20 mg HS SHRUTHI Administration Tramadol HCl 50 mg 11/17/19 08:11 11/19/19 02:54 Ultram - PO 50 mg Q6H PRN Administration PAIN LEVEL 6-10 Microbiology 11/17/19 17:15 Toe - Left Hallux Wound Culture - Preliminary Presumptive Mrsa (Pbp2a Pos) ASSESSMENT/PLAN: 64 year old female with a significant PMH of DM, HTN, HLD, Pacemaker, Lung Ca ( s/p lumpectomy and chemo, currently in remission) arthritis and neuropathy admitted with left toe infection. * Left toe infection -wbc 16.6> 12>11.2- normalized - afebrile - wound culture pos for MRSA - ID following, added Vanco - will cont on Brennan - s/p abscess drained - Bone scan ordered to r/o osteo - wound culture - MRSA - pain control - wound care - check Vanco trough before the 4th dose -sx following, plan I&D tomorrow at AM - NPO after MN * HTN- low BP improving - will hold off on Lisinopril - will monitor BP closely * DM- BS improving - Hgb Alc 10.2 - FS Ac& HS - Insulin sliding scale and Levemir *HDL - on Statin * Neuropathy - on Lyrica * Hyponatremia/ low Mg - NA 135 - Mg replaced - s/p IVF - PO intake encouraged *VTE : Heparin SQ F/E/N: Diabetic diet Replace electrolytes as needed. Plan: transfer to [facility] for sx tomorrow. Spoke with Hospitalist Mookie Naqvi. Visit type - Emergency Visit Emergency Visit: Yes ED Registration Date: 11/17/19 Care time: The patient presented to the Emergency Department on the above date and was hospitalized for further evaluation of their emergent condition. - New Patient This patient is new to me today: No - Critical Care Critical Care patient: No
[2019-11-19] MEDS ORDERED: MAGNESIUM SULF 50% (8.12 MEQ/2 ML-1 GM VIAL) IVPB ONE (11:45)
[2019-11-19] MEDS ORDERED: VANCOMYCIN 1 GRAM (PRE-DOCKED) 1,000 MG/250 ML BAG IVPB SCH (12:00)
--- NOTE | 2019-11-19 12:18 | PN ---
Progress Note, Physician History of Present Illness: Pt has no new complaints. Pain in Lt foot is controlled. She remains afebrile and is tolerating antibiotics. - Current Medication List Current Medications: Active Medications Aspirin (Ecotrin -) 81 mg PO DAILY [facility] Last Admin: 11/19/19 09:34 Dose: 81 mg Bacitracin (Bacitracin -) 1 applic TP DAILY [facility] Last Admin: 11/19/19 09:35 Dose: 1 applic Folic Acid (Folic Acid -) 1 mg PO DAILY [facility] Last Admin: 11/19/19 09:35 Dose: 1 mg Heparin Sodium (Porcine) (Heparin -) 5,000 unit SQ TID [facility] Last Admin: 11/19/19 06:14 Dose: 5,000 unit Meropenem 1 gm/ Dextrose 100 mls @ 200 mls/hr IVPB Q8H-IV [facility] Last Admin: 11/19/19 09:35 Dose: 200 mls/hr Vancomycin HCl (Vancomycin (Pre-Docked)) 1,000 mg in 250 mls @ 166.667 mls/hr IVPB Q12H [facility]; Protocol Insulin Aspart (Novolog Vial Sliding Scale -) 1 vial SQ [facility]; Protocol Last Admin: 11/19/19 12:01 Dose: 8 units Insulin Detemir (Levemir Vial) 19 units SQ [facility] Last Admin: 11/18/19 21:23 Dose: 19 units Oxycodone/Acetaminophen (Percocet 5/325 -) 2 combo PO Q6HPO PRN PRN Reason: PAIN LEVEL 4 - 6 Last Admin: 11/19/19 10:38 Dose: 2 combo Pregabalin (Lyrica -) 50 mg PO BID [facility] Last Admin: 11/19/19 09:35 Dose: 50 mg Rosuvastatin Calcium (Crestor -) 20 mg PO HS [facility] Last Admin: 11/18/19 21:22 Dose: 20 mg Tramadol HCl (Ultram -) 50 mg PO Q6H PRN PRN Reason: PAIN LEVEL 6-10 Last Admin: 11/19/19 02:54 Dose: 50 mg - Objective Vital Signs: Vital Signs Temperature 98.7 F 11/19/19 10:19 Pulse Rate 71 11/19/19 10:19 Respiratory Rate 18 11/19/19 10:19 Blood Pressure 119/52 L 11/19/19 10:19 O2 Sat by Pulse Oximetry (%) 96 11/19/19 10:19 Constitutional: Yes: No Distress, Calm Cardiovascular: Yes: Regular Rate and Rhythm Respiratory: Yes: Regular Gastrointestinal: Yes: Normal Bowel Sounds, Soft Genitourinary: Yes: WNL Wound/Incision: Yes: Dressing Dry and Intact (Lt foot dressing intact, +erythema /tenderness) Neurological: Yes: Alert Labs: CBC, BMP 11/19/19 08:43 11/19/19 08:43 Microbiology 11/17/19 17:15 Toe - Left Hallux Wound Culture - Preliminary Presumptive Mrsa (Pbp2a Pos) Problem List - Problems (1) Diabetes Code(s): E11.9 - TYPE 2 DIABETES MELLITUS WITHOUT COMPLICATIONS Qualifiers: Diabetes mellitus type: other specified (including MILTON) 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: unspecified mcfp insulin use status Diabetes mellitus complication status: with other specified complication Qualified Code (s): E13.69 - Other specified diabetes mellitus with other specified complication (2) Wound of foot Code(s): S91.309A - UNSPECIFIED OPEN WOUND, UNSPECIFIED FOOT, INITIAL ENCOUNTER Assessment/Plan Lt toe abscess/paronychia r/o OM s/p drainage Uncontrolled DM Hx of Lung CA HTN HLD - wound culture +MRSA - d/c Clindamycin, switch to Vancomycin IV and continue Meropenem - check Vancomycin trough prior to 4th dose, monitor renal function - wbc down to normal, pt afebrile - bone scan pending - continue wound care - Podiatry following
--- NOTE | 2019-11-19 13:15 | PN ---
Progress Note (short form) - Note Progress Note: Today foot looking much worse Erythema ascending up the foot and onto the ankle sever pain along the digit and into the first interspace WBC as stabilized but apparent infectoin in the foot is looking much worse Will need to be taken down to the OR tomorrow morning for a flush NPO and hold hep problem is OR is closed so am tryin to get in contact with on [facility] team and working with nurse spinning and winding supervisor at [facility] for transfer to [facility] and confirmation of time for the OR if no time ultrasound coordinator be confirmed for tomorrow iwll need to go tonight NPO for today as well until can figure out scheduling issues.
[2019-11-19] MEDS ORDERED: SODIUM CHLORIDE 100 ML IVPB ONE (17:39)
[2019-11-19] MEDS: MEROPENEM 1 GM in SODIUM CHLORIDE 100 ML IVPB SCH (18:55)
[2019-11-19] MEDS: ROSUVASTATIN CA 20 MG TABLET (FP) PO SCH (21:00)
[2019-11-19] MEDS: INSULIN (LEVEMIR) 100 UNITS/ML UNITS SQ SCH (22:59)
[2019-11-20] MEDS: VANCOMYCIN 1 GRAM (PRE-DOCKED) 1,000 MG/250 ML BAG IVPB SCH ×2 (00:10→12:41)
[2019-11-20] MEDS ORDERED: oxyCODONE HCL 5 MG TABLET PO ONE (00:19)
[2019-11-20] MEDS ORDERED: MEROPENEM 1 GM VIAL (RESTRICTED TO ID) IVPB ONE ×2 (02:05→11:28)
[2019-11-20] MEDS ORDERED: SODIUM CHLORIDE 100 ML IVPB ONE ×2 (02:05→11:29)
[2019-11-20] MEDS: MEROPENEM 1 GM in SODIUM CHLORIDE 100 ML IVPB SCH ×2 (02:10→11:34)
[2019-11-20] MEDS: INSULIN SLIDING SCALE (NOVOLOG) 1 VIAL SQ SCH ×4 (06:11→23:10)
[2019-11-20] MEDS ORDERED: MORPHINE SULFATE 2 MG/ML VIAL IVPUSH ONE (07:03)
--- NOTE | 2019-11-20 07:41 | PN ---
Progress Note (short form) - Note Progress Note: Seen at bedside at [facility] after transfer from [facility] with diabetic foot infection left foot PT tried to fix her ingrown toe nail formed a blister, infection got worse. Pt is poorly controlled diabetic with A1C above 10 and blood sugar at 250 Pt was admitted to [place] placed on IVABX where condition got worse. Denies CP SOB Calf pain. PMH HTN. DM Cardiac Pacemaker Allergies " PCN GAGE Palpable pedal pulses NVS decreased (++) edema . (++) erythema Tender on palaption + fluctance dorsal left foot Negative adenopathy NO tenderness on palpation of popliteal region or inguinal region Xray : NO gas noted on tissue, surgical hardware 1st metatarsal ( sx was approx 20 years ago) Impression : Diabetic foot infection Plan: Pt is NPO , PT to OR for this am for I&D left foot . Consent obtained . Discussed risks benefits and alternatives of proposed procedure. All questions and concerns were addressed . Discussed poor healing potential due to hyperglycemia and the potential of loss of limb Thank you for courtesy of this consult Seen and evaluated by Dr Cecilio Pressley
[2019-11-20 07:57] LABS: CALCIUM 9.8 mg/dL (8.5-10.1); CREATININE 0.9 mg/dL (0.55-1.3); POTASSIUM 4.2 mmol/L (3.5-5.1)
[2019-11-20 09:07] LABS: INR 1.13 (0.83-1.09); PROTHROMBIN TIME (PATIENT) 13.3 SEC (9.7-13.0)
--- NOTE | 2019-11-20 09:11 | PN ---
Progress Note (short form) - Note Progress Note: Seen in holding area of OR with family Surgery was fully discussed with pt Discussed risks benefits alternatives as well as possible complications of proposed treatment Consent obtained All questions and concerns were addressed
[2019-11-20] MEDS ORDERED: ONDANSETRON 4 MG/2 ML VIAL IVPUSH PRN (09:19)
[2019-11-20] MEDS ORDERED: MIDAZOLAM HCL 2 MG/2 ML SINGLE DOSE VIAL ONE (09:34)
[2019-11-20] MEDS ORDERED: LIDOCAINE HCL 2% (20ML MULTI-DOSE VIAL) ONE (09:55)
[2019-11-20] MEDS ORDERED: PROPOFOL 20 ML ONE ×2 (10:04→10:13)
[2019-11-20] MEDS ORDERED: LIDOCAINE HCL 2% (50ML VIAL) INF ONE (10:05)
[2019-11-20] MEDS ORDERED: EPHEDRINE SULFATE/0.9% NACL/PF 50 MG/10 ML SYRINGE NR ONE (10:06)
[2019-11-20] MEDS ORDERED: SUCCINYLCHOLINE CHLORIDE 200 MG/10 ML SYRINGE ONE (10:06)
[2019-11-20] MEDS ORDERED: ONDANSETRON 4 MG/2 ML VIAL ONE (10:13)
[2019-11-20] MEDS ORDERED: BACITRACIN 50,000 UNITS VIAL TP ONE (10:15)
--- NOTE | 2019-11-20 10:29 | OP ---
Operative Note - Note: Operative Date: 11/20/19 Pre-Operative Diagnosis: diabetic foot infection left foot Operation: Incision and Drainage left foot Findings: diabetic foot infection Implants: none Surgeon: Cecilio Pressley Anesthesia: MAC
[2019-11-20] MEDS: BACITRACIN 15 GM TUBE TOPICAL OINTMENT TP SCH (11:25)
[2019-11-20] MEDS: FOLIC ACID 1 MG TABLET (FP) PO SCH (11:25)
[2019-11-20] MEDS: PREGABALIN 50 MG CAPSULE PO SCH ×2 (11:26→23:07)
--- NOTE | 2019-11-20 11:53 | OP ---
DATE OF OPERATION: 11/20/2019 SURGEON: Cecilio Eduardo DPM ANESTHESIA: IV sedation, local infiltrate with 2% Xylocaine plain. PREOPERATIVE DIAGNOSIS: Diabetic foot infection, left foot. POSTOPERATIVE DIAGNOSIS: Diabetic foot infection, left foot. PROCEDURE: An incision and drainage of left foot. DESCRIPTION OF PROCEDURE: Patient identified as correct patient. Brought to the operating room, placed on operating room in supine position. No tourniquet was utilized during this procedure. The left foot and leg were prepped and draped in the usual sterile manner using aseptic technique. Attention was then directed to the dorsal aspect of the left foot where a well-placed 4-cm Lazy-S incision was made extending into the interspace. The incision was deepened via sharp and blunt dissection paying careful attention to all neurovascular structures ligating, cauterizing all bleeders encountered. The incision was deepened down to the 1st interspace where an abscess was identified and incision and drainage was performed. A culture and sensitivity was performed at this time. Utilizing pulse lavage, bacitracin with normal saline, the area was copiously flushed with sterile saline. The infection did extend across the dorsal aspect of the foot, normal plantarly. This area was then gently packed with 1/4-inch iodoform gauze. Retention sutures were applied to loosely coapt the skin. A nail avulsion was also performed as this was the initial nidus of the infection, and the nail appeared to be incurvated as well. The wound was then dressed with Xeroform gauze, 4 x 4's, Britt, and an Jovan wrap. The patient was noted to tolerate the procedure and anesthesia well. Left the operating room with vital signs stable, neurovascular status intact. CECILIO EDUARDO DPM [id number]
--- NOTE | 2019-11-20 12:56 | PN ---
Physical Exam: SUBJECTIVE: Patient seen and examined at the bedside. denies pain. status post I&D. OBJECTIVE: Patient is a 64 year old female with a significant past medical history of diabetes II, HTN, HLD, PPM, Type II NIDDM, neuropathy, and breast cancer a (s/p lumpectomy and chemo, currently in remission), who is s/p abscess drainage on 11/17/2019 who then developed worsening erythema ascending up the foot onto the ankle and was taken to the OR today for another I&D. Vital Signs Period Temp Pulse Resp BP Sys/Combs Pulse Ox Last 24 Hr 97.7 F-98.4 F 66-86 14-20 113-136/49-74 96-100 GENERAL: The patient is awake, alert, and fully oriented, in no acute distress. HEAD: Normal with no signs of trauma. EYES: PERRL, extraocular movements intact, sclera anicteric, conjunctiva clear. No ptosis. ENT: Ears normal, nares patent, oropharynx clear without exudates, moist mucous membranes. NECK: Trachea midline, full range of motion, supple. LUNGS: Breath sounds equal, clear to auscultation bilaterally, no wheezes HEART: Regular rate and rhythm ABDOMEN: Soft, nontender, nondistended, normoactive bowel sounds, no guarding EXTREMITIES: left foot bandaged s/p I&D NEUROLOGICAL: Normal speech, gait not observed. PSYCH: Normal mood, normal affect. Laboratory Results - last 24 hr 11/19/19 11/19/19 11/19/19 16:22 20:30 22:58 ESR PT with INR INR Sodium Potassium Chloride Carbon Dioxide Anion Gap BUN Creatinine Est GFR (CKD-EPI)AfAm Est GFR (CKD-EPI)NonAf POC Glucometer 267 253 256 Random Glucose Calcium Magnesium C-Reactive Protein 11/20/19 11/20/19 11/20/19 06:08 06:10 06:10 ESR PT with INR INR Sodium 135 L Potassium 4.2 Chloride 94 L Carbon Dioxide 33 H Anion Gap 8 BUN 13.0 Creatinine 0.9 Est GFR (CKD-EPI)AfAm 78.87 Est GFR (CKD-EPI)NonAf 68.05 POC Glucometer 225 Random Glucose 210 H Calcium 9.8 Magnesium 2.0 C-Reactive Protein 25.1 H 11/20/19 11/20/19 11/20/19 06:10 06:10 11:37 ESR 74 H PT with INR 13.30 H INR 1.13 H Sodium Potassium Chloride Carbon Dioxide Anion Gap BUN Creatinine Est GFR (CKD-EPI)AfAm Est GFR (CKD-EPI)NonAf POC Glucometer 213 Random Glucose Calcium Magnesium C-Reactive Protein Active Medications Generic Name Dose Route Start Last Admin Trade Name Freq PRN Reason Stop Dose Admin Bacitracin 1 applic 11/20/19 10:00 11/20/19 11:25 Bacitracin - TP Not Given DAILY [facility] Folic Acid 1 mg 11/20/19 10:00 11/20/19 11:25 Folic Acid - PO Not Given DAILY [facility] Meropenem 1 gm/ Sodium 100 mls @ 200 mls/hr 11/19/19 18:00 11/20/19 11:34 Chloride IVPB 200 mls/hr Q8H-IV SHRUTHI Administration Vancomycin HCl 1,000 mg in 250 mls @ 166.667 mls/hr 11/20/19 00:00 11/20/19 12:41 Vancomycin (Pre-Docked) IVPB 166.667 mls/hr Q12H SHRUTHI Administration Protocol Insulin Aspart 1 vial 11/19/19 22:00 11/20/19 11:38 Novolog Vial Sliding Scale - SQ Not Given ACHS [facility] Protocol Insulin Detemir 19 units 11/19/19 22:00 11/19/19 22:59 Levemir Vial SQ 19 units HS SHRUTHI Administration Ondansetron HCl 4 mg 11/20/19 09:19 Zofran Injection IVPUSH Q6H PRN NAUSEA AND/OR VOMITING Oxycodone/Acetaminophen 2 combo 11/19/19 22:17 Percocet 5/325 - PO Q6HPO PRN PAIN LEVEL 4 - 6 Pregabalin 50 mg 11/20/19 10:00 11/20/19 11:26 Lyrica - PO Not Given BID [facility] Rosuvastatin Calcium 20 mg 11/20/19 22:00 Crestor - PO HS SHRUTHI Tramadol HCl 50 mg 11/19/19 22:17 Ultram - PO Q6H PRN PAIN LEVEL 6-10 ASSESSMENT/PLAN: Problem List - Problems (1) Wound of foot Assessment/Plan: POD #0 Left toe infection/diabetic wound wbc now within normal limits. remains afebrile. wound culture pos for mrsa. on vanco per ID bone scan pending wound care daily per surgery s/p I&D today bowel regimen, incentive spirometer, monitor wound, pain management. Code(s): S91.309A - UNSPECIFIED OPEN WOUND, UNSPECIFIED FOOT, INITIAL ENCOUNTER (2) HTN (hypertension) Assessment/Plan: stable off meds, monitor Code(s): I10 - ESSENTIAL (PRIMARY) HYPERTENSION (3) HLD (hyperlipidemia) Assessment/Plan: on statin Code(s): E78.5 - HYPERLIPIDEMIA, UNSPECIFIED (4) Diabetes Assessment/Plan: uncontrolled diabetes at 10.2 hmga1c per family, patient poorly complies with diabetic meds at home novlog ss tightened, on levemir goal is achieve fasting glucose <150 will need endocrinology consult on d/c but patient resides in [place] Code(s): E11.9 - TYPE 2 DIABETES MELLITUS WITHOUT COMPLICATIONS Qualifiers: Diabetes mellitus type: other specified (including MILTON) Diabetes mellitus nursing home insulin use: unspecified 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 - New Patient This patient is new to me today: Yes Date on this admission: 11/20/19 - Critical Care Critical Care patient: No - Discharge Referral Referred to [facility] Med P.C.: No
[2019-11-20] MEDS ORDERED: INSULIN (NOVOLOG) ASPART 100 UNITS/ML 10ML VIAL SQ ONE (12:57)
--- NOTE | 2019-11-20 15:03 | PN ---
Progress Note, Physician History of Present Illness: stable doing well no new issues - Current Medication List Current Medications: Active Medications Bacitracin (Bacitracin -) 1 applic TP DAILY [facility] Last Admin: 11/20/19 11:25 Dose: Not Given Folic Acid (Folic Acid -) 1 mg PO DAILY [facility] Last Admin: 11/20/19 11:25 Dose: Not Given Vancomycin HCl (Vancomycin (Pre-Docked)) 1,000 mg in 250 mls @ 166.667 mls/hr IVPB Q12H [facility]; Protocol Last Admin: 11/20/19 12:41 Dose: 166.667 mls/hr Insulin Aspart (Novolog Vial Sliding Scale -) 1 vial SQ [facility]; Protocol Insulin Detemir (Levemir Vial) 19 units SQ [facility] Last Admin: 11/19/19 22:59 Dose: 19 units Ondansetron HCl (Zofran Injection) 4 mg IVPUSH Q6H PRN PRN Reason: NAUSEA AND/OR VOMITING Oxycodone/Acetaminophen (Percocet 5/325 -) 2 combo PO Q6HPO PRN PRN Reason: PAIN LEVEL 4 - 6 Pregabalin (Lyrica -) 50 mg PO BID [facility] Last Admin: 11/20/19 11:26 Dose: Not Given Rosuvastatin Calcium (Crestor -) 20 mg PO [facility] Tramadol HCl (Ultram -) 50 mg PO Q6H PRN PRN Reason: PAIN LEVEL 6-10 - Objective Vital Signs: Vital Signs Temperature 98 F 11/20/19 11:42 Pulse Rate 66 11/20/19 11:42 Respiratory Rate 18 11/20/19 11:42 Blood Pressure 121/65 11/20/19 11:42 O2 Sat by Pulse Oximetry (%) 98 11/20/19 11:42 Constitutional: Yes: No Distress, Calm Cardiovascular: Yes: S1, S2 Respiratory: Yes: Regular, CTA Bilaterally Gastrointestinal: Yes: Normal Bowel Sounds, Soft Musculoskeletal: Yes: WNL Extremities: Yes: Other Neurological: Yes: Alert, Oriented Psychiatric: Yes: Alert, Oriented Labs: CBC, BMP 11/19/19 08:43 11/20/19 06:10 INR, PTT INR 1.13 (0.83-1.09) H 11/20/19 06:10 Assessment/Plan Problem List - Problems (1) Diabetes Code(s): E11.9 - TYPE 2 DIABETES MELLITUS WITHOUT COMPLICATIONS Qualifiers: Diabetes mellitus type: other specified (including MILTON) 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
[2019-11-20] MEDS: traMADol HCL 50 MG TABLET PO PRN ×2 (15:21→20:39)
[2019-11-20] MEDS: oxyCODONE HCL 5 MG TABLET PO PRN ×2 (17:21→23:12)
[2019-11-20] MEDS: ACETAMINOPHEN 325 MG TABLET (FP) PO PRN ×2 (17:21→23:11)
[2019-11-20] MEDS: ROSUVASTATIN CA 20 MG TABLET (FP) PO SCH (23:07)
[2019-11-20] MEDS: HEPARIN NA (PORCINE) 5,000 UNITS/ML 1ML VIAL SQ SCH (23:07)
[2019-11-20] MEDS: INSULIN (LEVEMIR) 100 UNITS/ML UNITS SQ SCH (23:08)
[2019-11-21] MEDS: VANCOMYCIN 1 GRAM (PRE-DOCKED) 1,000 MG/250 ML BAG IVPB SCH ×3 (00:35→23:52)
[2019-11-21] MEDS: INSULIN SLIDING SCALE (NOVOLOG) 1 VIAL SQ SCH ×4 (06:21→21:00)
[2019-11-21] MEDS: traMADol HCL 50 MG TABLET PO PRN ×2 (06:28→19:36)
[2019-11-21 07:51] LABS: BASO % 0.4 % (0-2.0); EOS % 2.5 % (0-4.5); HEMATOCRIT 35.3 % (32.4-45.2); HEMOGLOBIN 11.7 GM/dL (10.7-15.3); MCH 27.2 pg (25.7-33.7); MCHC 33.1 g/dl (32.0-36.0); MEAN CELL VOLUME 82.3 fl (80-96); MEAN PLT VOLUME 6.9 fl (7.5-11.1); MONO % 8.6 % (3.8-10.2); NEUT % 62.5 % (42.8-82.8); PLATELET COUNT 275 K/MM3 (134-434); RBC 4.29 M/mm3 (3.60-5.2); RDW 14.2 % (11.6-15.6); WHITE BLOOD COUNT 8.7 K/mm3 (4.0-10.0)
[2019-11-21] MEDS: ACETAMINOPHEN 325 MG TABLET (FP) PO PRN ×2 (07:57→23:53)
[2019-11-21] MEDS: oxyCODONE HCL 5 MG TABLET PO PRN ×3 (07:58→23:53)
[2019-11-21] MEDS ORDERED: INSULIN (LEVEMIR) 100 UNITS/ML UNITS SQ ONE (07:58)
--- NOTE | 2019-11-21 08:04 | PN ---
Progress Note (short form) - Note Progress Note: 64F s/p I&D left foot under MAC. Vital Signs Temp 98.1 F 11/21/19 06:23 Pulse 69 11/21/19 06:23 Resp 16 11/21/19 06:23 BP 117/64 11/21/19 06:23 Pulse Ox 98 11/20/19 20:58 Intake & Output 11/20/19 11/20/19 11/21/19 11:59 23:59 11:59 Intake Total 550 1240 480 Output Total 900 Balance 550 1240 -420 Intake: IV 200 IVPB 350 350 280 Oral 890 200 Output: Urine 900 Void 900 Other: Voiding Method Bedpan Bedpan # Unmeasured Voids Void 2 1 Bowel Movement No No - No anesthesia complications
[2019-11-21 08:15] LABS: ALBUMIN 2.5 g/dl (3.4-5.0); BILIRUBIN,TOTAL 0.8 mg/dL (0.2-1); CALCIUM 9.1 mg/dL (8.5-10.1); CREATININE 0.7 mg/dL (0.55-1.3); MAGNESIUM 1.9 mg/dL (1.8-2.4); POTASSIUM 4.2 mmol/L (3.5-5.1); TOT PROT 6.1 g/dl (6.4-8.2)
[2019-11-21] MEDS: PREGABALIN 50 MG CAPSULE PO SCH ×2 (09:33→20:59)
[2019-11-21] MEDS: FOLIC ACID 1 MG TABLET (FP) PO SCH (09:33)
[2019-11-21] MEDS: HEPARIN NA (PORCINE) 5,000 UNITS/ML 1ML VIAL SQ SCH ×2 (09:39→20:59)
[2019-11-21] MEDS: BACITRACIN 15 GM TUBE TOPICAL OINTMENT TP SCH (09:40)
--- NOTE | 2019-11-21 13:04 | PN ---
Progress Note, Physician History of Present Illness: stable no new issues - Current Medication List Current Medications: Active Medications Acetaminophen (Tylenol -) 650 mg PO Q6H PRN PRN Reason: PAIN LEVEL 4 - 6 Last Admin: 11/21/19 07:57 Dose: 650 mg Bacitracin (Bacitracin -) 1 applic TP DAILY [facility] Last Admin: 11/21/19 09:40 Dose: Not Given Folic Acid (Folic Acid -) 1 mg PO DAILY [facility] Last Admin: 11/21/19 09:33 Dose: 1 mg Heparin Sodium (Porcine) (Heparin -) 5,000 unit SQ BID [facility] Last Admin: 11/21/19 09:39 Dose: 5,000 unit Vancomycin HCl (Vancomycin (Pre-Docked)) 1,000 mg in 250 mls @ 166.667 mls/hr IVPB Q12H [facility]; Protocol Last Admin: 11/21/19 11:24 Dose: 166.667 mls/hr Insulin Aspart (Novolog Vial Sliding Scale -) 1 vial SQ [facility]; Protocol Last Admin: 11/21/19 11:23 Dose: 4 units Insulin Detemir (Levemir Vial) 19 units SQ [facility] Last Admin: 11/20/19 23:08 Dose: 19 units Ondansetron HCl (Zofran Injection) 4 mg IVPUSH Q6H PRN PRN Reason: NAUSEA AND/OR VOMITING Oxycodone HCl (Roxicodone -) 10 mg PO Q6H PRN PRN Reason: PAIN LEVEL 4 - 6 Last Admin: 11/21/19 07:58 Dose: 10 mg Pregabalin (Lyrica -) 50 mg PO BID [facility] Last Admin: 11/21/19 09:33 Dose: 50 mg Rosuvastatin Calcium (Crestor -) 20 mg PO [facility] Last Admin: 11/20/19 23:07 Dose: 20 mg Tramadol HCl (Ultram -) 50 mg PO Q6H PRN PRN Reason: PAIN LEVEL 6-10 Last Admin: 11/21/19 06:28 Dose: 50 mg - Objective Vital Signs: Vital Signs Temperature 98.1 F 11/21/19 08:05 Pulse Rate 66 11/21/19 08:05 Respiratory Rate 20 11/21/19 08:05 Blood Pressure 112/61 11/21/19 08:05 O2 Sat by Pulse Oximetry (%) 94 L 11/21/19 09:00 Constitutional: Yes: No Distress, Calm Cardiovascular: Yes: S1, S2 Respiratory: Yes: Regular, CTA Bilaterally Gastrointestinal: Yes: Normal Bowel Sounds, Soft Musculoskeletal: Yes: WNL Extremities: Yes: Other Wound/Incision: Yes: Dressing Dry and Intact Neurological: Yes: Alert, Oriented Psychiatric: Yes: Alert, Oriented Labs: CBC, BMP 11/21/19 07:10 11/21/19 07:10 INR, PTT INR 1.13 (0.83-1.09) H 11/20/19 06:10 Assessment/Plan Problem List - Problems (1) Diabetes Code(s): E11.9 - TYPE 2 DIABETES MELLITUS WITHOUT COMPLICATIONS Qualifiers: Diabetes mellitus type: other specified (including MILTON) Diabetes mellitus terminal clerk insulin use: unspecified terminal clerk insulin use status Diabetes mellitus complication status: with other specified complication Qualified Code (s): E13.69 - Other specified diabetes mellitus with other specified complication (2) Wound of foot Code(s): S91.309A - UNSPECIFIED OPEN WOUND, UNSPECIFIED FOOT, INITIAL ENCOUNTER Assessment/Plan Lt toe abscess/paronychia r/o OM s/p drainage Uncontrolled DM Hx of Lung CA HTN HLD plan continue abx await for all cx rest as per the team
--- NOTE | 2019-11-21 15:22 | PATH ---
Surgical Pathology Report Patient Name: HEIDY PLASCENCIA [facility]. Rec. #: [id number] /Age/Gender: 1955 (Age: 64) / F Account: [id number] Location: [address] [place] [address]/[facility] Taken: 11/20/2019 Received: 11/20/2019 Reported: 11/21/2019 Physicians: Cecilio Pressley M.D. Specimen(s) Received LEFT FOOT FIRST TOE NAIL REMOVAL Clinical History Wound infection left foot Final Diagnosis TOENAIL LEFT BIG TOE, EXCISION: NAIL PLATE WITH FOCAL NEUTROPHILIC INFILTRATE AND ATTACHED NAIL BED EPITHELIUM. PAS STAIN IS POSITIVE FOR FUNGAL HYPHAE. Electronically Signed Brett Kiser M.D. Gross Description Received in formalin labeled "toenail left big toe," is a 1.7 x 1.7 x 0.2 cm rosenberg-yellow, irregular nail. The specimen is serially sectioned and entirely submitted in one cassette. /11/20/2019 saudi/11/20/2019
--- NOTE | 2019-11-21 16:04 | PN ---
Progress Note (short form) - Note Progress Note: Podiatry F/U: Seen/evaluated at bedside NAD. Pain to the left foot controlled appropriately with PO pain medication. Denies F/V/N/C/SOB/CP. AFebrile. S/p left foot incision and drainage of abscess POD#1. WBC trending downward. GAGE: L foot: pedal pulses palpable, TG warm-warm, CFT brisk to toes. Sutures coapted over first interspace, packing in place. There is no dehiscence over the incision site noted. The hallux has fibrogranular base, moderate slough, moderate tenderness to palpation. There is persistent erythema to the dorsal midfoot. There is significant tenderness on palpation of the surgical site. There is no purulent drainage, no fluctuance, no soft tissue crepitus. OR Cx: pending Initial Wound Cx: MRSA Imp: 64 year old diabetic female s/p left foot incision and drainage POD#1 1. Packing removed, Xeroform + DSD L foot 2. Continue intravenous abx per infectious disease 3. Will f/u OR cultures 4. Will continue to trend WBCs 5. Will follow. Genesis Yung DPM
[2019-11-21] MEDS ORDERED: INSULIN (NOVOLOG) ASPART 100 UNITS/ML 10ML VIAL ONE (16:54)
--- NOTE | 2019-11-21 17:22 | PN ---
Physical Exam: SUBJECTIVE: Patient seen and examined at the bedside. denies any pain. wants to go to rehab on d/c. OBJECTIVE: Patient is a 64 year old female with a significant past medical history of HTN, HLD, PPM, Type II NIDDM, neuropathy, and breast cancer with lung mets (s/p left lower lobe lobectomy - currently in remission). Patient was admitted for left foot abscess, who is s/p abscess drainage on 11/17/2019 who then developed worsening erythema ascending up the foot onto the ankle. She is s/p I&D drainage of left foot wound on 11/20/2019. Vital Signs Period Temp Pulse Resp BP Sys/Combs Pulse Ox Last 24 Hr 97.5 F-98.1 F 66-80 16-20 112-142/59-79 94-98 GENERAL: The patient is awake, alert, and fully oriented, in no acute distress. HEAD: Normal with no signs of trauma. EYES: PERRL, extraocular movements intact, sclera anicteric, conjunctiva clear. No ptosis. ENT: Ears normal, nares patent, oropharynx clear without exudates, moist mucous membranes. NECK: Trachea midline, full range of motion, supple. LUNGS: Breath sounds equal, clear to auscultation bilaterally, no wheezes HEART: Regular rate and rhythm ABDOMEN: Soft, nontender, nondistended, normoactive bowel sounds, no guarding EXTREMITIES: left foot bandaged s/p I&D NEUROLOGICAL: Normal speech, gait not observed. PSYCH: Normal mood, normal affect. Laboratory Results - last 24 hr 11/20/19 11/21/19 11/21/19 23:05 06:17 07:10 WBC 8.7 RBC 4.29 Hgb 11.7 Hct 35.3 MCV 82.3 MCH 27.2 MCHC 33.1 RDW 14.2 Plt Count 275 MPV 6.9 L Absolute Neuts (auto) 5.4 Neutrophils % 62.5 Lymphocytes % 26.0 Monocytes % 8.6 Eosinophils % 2.5 Basophils % 0.4 Nucleated RBC % 0 Sodium Potassium Chloride Carbon Dioxide Anion Gap BUN Creatinine Est GFR (CKD-EPI)AfAm Est GFR (CKD-EPI)NonAf POC Glucometer 243 237 Random Glucose Calcium Magnesium Total Bilirubin AST ALT Alkaline Phosphatase Total Protein Albumin 11/21/19 11/21/19 11/21/19 07:10 11:23 16:46 WBC RBC Hgb Hct MCV MCH MCHC RDW Plt Count MPV Absolute Neuts (auto) Neutrophils % Lymphocytes % Monocytes % Eosinophils % Basophils % Nucleated RBC % Sodium 135 L Potassium 4.2 Chloride 95 L Carbon Dioxide 34 H Anion Gap 5 L BUN 12.0 Creatinine 0.7 Est GFR (CKD-EPI)AfAm 106.87 Est GFR (CKD-EPI)NonAf 92.21 POC Glucometer 214 233 Random Glucose 233 H Calcium 9.1 Magnesium 1.9 Total Bilirubin 0.8 AST 10 L ALT 13 Alkaline Phosphatase 92 Total Protein 6.1 L Albumin 2.5 L Active Medications Generic Name Dose Route Start Last Admin Trade Name Freq PRN Reason Stop Dose Admin Acetaminophen 650 mg 11/20/19 17:13 11/21/19 07:57 Tylenol - PO 650 mg Q6H PRN Administration PAIN LEVEL 4 - 6 Bacitracin 1 applic 11/20/19 10:00 11/21/19 09:40 Bacitracin - TP Not Given DAILY [facility] Folic Acid 1 mg 11/20/19 10:00 11/21/19 09:33 Folic Acid - PO 1 mg DAILY SH[facility] Administration Heparin Sodium (Porcine) 5,000 unit 11/20/19 22:00 11/21/19 09:39 Heparin - SQ 5,000 unit BID [facility] Administration Vancomycin HCl 1,000 mg in 250 mls @ 166.667 mls/hr 11/20/19 00:00 11/21/19 11:24 Vancomycin (Pre-Docked) IVPB 166.667 mls/hr Q12H [facility] Administration Protocol Insulin Aspart 1 vial 11/20/19 16:30 11/21/19 16:58 Novolog Vial Sliding Scale - SQ 4 units ACHS [facility] Administration Protocol Insulin Detemir 19 units 11/19/19 22:00 11/20/19 23:08 Levemir Vial SQ 19 units HS [facility] Administration Ondansetron HCl 4 mg 11/20/19 09:19 Zofran Injection IVPUSH Q6H PRN NAUSEA AND/OR VOMITING Oxycodone HCl 10 mg 11/20/19 17:13 11/21/19 16:56 Roxicodone - PO 10 mg Q6H PRN Administration PAIN LEVEL 4 - 6 Pregabalin 50 mg 11/20/19 10:00 11/21/19 09:33 Lyrica - PO 50 mg BID [facility] Administration Rosuvastatin Calcium 20 mg 11/20/19 22:00 11/20/19 23:07 Crestor - PO 20 mg HS [facility] Administration Tramadol HCl 50 mg 11/19/19 22:17 11/21/19 06:28 Ultram - PO 50 mg Q6H PRN Administration PAIN LEVEL 6-10 ASSESSMENT/PLAN: Problem List - Problems (1) Wound of foot Assessment/Plan: POD #1 Left toe infection/diabetic wound wbc now within normal limits. remains afebrile. wound culture pos for mrsa. on vanco per ID bone scan pending wound care daily per surgery bowel regimen, incentive spirometer, monitor wound, pain management. Code(s): S91.309A - UNSPECIFIED OPEN WOUND, UNSPECIFIED FOOT, INITIAL ENCOUNTER (2) HTN (hypertension) Assessment/Plan: stable off meds, monitor Code(s): I10 - ESSENTIAL (PRIMARY) HYPERTENSION (3) HLD (hyperlipidemia) Assessment/Plan: on statin Code(s): E78.5 - HYPERLIPIDEMIA, UNSPECIFIED (4) Diabetes Assessment/Plan: uncontrolled diabetes at 10.2 hmga1c per family, patient poorly complies with diabetic meds at home novlog ss tightened, on levemir 10 units a.m. 20units p.m. goal is achieve fasting glucose <150 will need endocrinology consult on d/c but patient resides in [place] Code(s): E11.9 - TYPE 2 DIABETES MELLITUS WITHOUT COMPLICATIONS Qualifiers: Diabetes mellitus type: other specified (including MILTON) Diabetes mellitus fdc insulin use: unspecified fdc insulin use status Diabetes mellitus complication status: with other specified complication Qualified Code (s): E13.69 - Other specified diabetes mellitus with other specified complication (5) Prophylactic measure Assessment/Plan: fen tolerating po monitor vitals/labs full code heparin bid Code(s): Z29.9 - ENCOUNTER FOR PROPHYLACTIC MEASURES, UNSPECIFIED Visit type - Emergency Visit Emergency Visit: Yes ED Registration Date: 11/17/19 Care time: The patient presented to the Emergency Department on the above date and was hospitalized for further evaluation of their emergent condition. - New Patient This patient is new to me today: No - Critical Care Critical Care patient: No - Discharge Referral Referred to [facility] Med P.C.: No
[2019-11-21] MEDS ORDERED: INSULIN (LEVEMIR) 100 UNITS/ML UNITS SQ SCH (17:23)
[2019-11-21] MEDS: SENNOSIDES 8.6MG TABLET (FP) PO SCH (20:59)
[2019-11-21] MEDS: DOCUSATE SODIUM 100 MG CAPSULE (FP) PO SCH (20:59)
[2019-11-21] MEDS: ROSUVASTATIN CA 20 MG TABLET (FP) PO SCH (20:59)
[2019-11-22] MEDS: DOCUSATE SODIUM 100 MG CAPSULE (FP) PO SCH ×3 (06:14→21:24)
[2019-11-22] MEDS: INSULIN SLIDING SCALE (NOVOLOG) 1 VIAL SQ SCH ×4 (06:15→21:31)
[2019-11-22] MEDS ORDERED: INSULIN (LEVEMIR) 100 UNITS/ML UNITS SQ SCH ×2 (07:00→07:49)
[2019-11-22] MEDS ORDERED: INSULIN (NOVOLOG) ASPART 100 UNITS/ML 10ML VIAL ONE (08:38)
[2019-11-22 09:13] LABS: BASO % 0.5 % (0-2.0); EOS % 1.8 % (0-4.5); HEMATOCRIT 35.6 % (32.4-45.2); HEMOGLOBIN 11.7 GM/dL (10.7-15.3); LYMPH % 23.9 % (8-40); MCH 27.4 pg (25.7-33.7); MEAN PLT VOLUME 6.8 fl (7.5-11.1); MONO % 8.7 % (3.8-10.2); NEUT % 65.1 % (42.8-82.8); PLATELET COUNT 292 K/MM3 (134-434); RBC 4.29 M/mm3 (3.60-5.2); RDW 13.8 % (11.6-15.6); WHITE BLOOD COUNT 9.9 K/mm3 (4.0-10.0)
[2019-11-22] MEDS: FOLIC ACID 1 MG TABLET (FP) PO SCH (09:54)
[2019-11-22] MEDS: oxyCODONE HCL 5 MG TABLET PO PRN ×2 (09:55→17:56)
[2019-11-22] MEDS: PREGABALIN 50 MG CAPSULE PO SCH ×2 (09:55→21:24)
[2019-11-22] MEDS: HEPARIN NA (PORCINE) 5,000 UNITS/ML 1ML VIAL SQ SCH ×2 (09:56→21:24)
[2019-11-22 10:02] LABS: ALBUMIN 2.5 g/dl (3.4-5.0); BILIRUBIN,TOTAL 0.7 mg/dL (0.2-1); BLOOD UREA NITROGEN 12.1 mg/dL (7-18); CALCIUM 9.3 mg/dL (8.5-10.1); CREATININE 0.7 mg/dL (0.55-1.3); MAGNESIUM 2.1 mg/dL (1.8-2.4); POTASSIUM 4.3 mmol/L (3.5-5.1); TOT PROT 6.4 g/dl (6.4-8.2)
--- NOTE | 2019-11-22 10:47 | PN ---
Progress Note, Physician History of Present Illness: stable no new issues - Current Medication List Current Medications: Active Medications Acetaminophen (Tylenol -) 650 mg PO Q6H PRN PRN Reason: PAIN LEVEL 4 - 6 Last Admin: 11/21/19 23:53 Dose: 650 mg Bacitracin (Bacitracin -) 1 applic TP DAILY [facility] Last Admin: 11/21/19 09:40 Dose: Not Given Docusate Sodium (Colace -) 100 mg PO TID [facility] Last Admin: 11/22/19 06:14 Dose: 100 mg Folic Acid (Folic Acid -) 1 mg PO DAILY [facility] Last Admin: 11/22/19 09:54 Dose: 1 mg Heparin Sodium (Porcine) (Heparin -) 5,000 unit SQ BID [facility] Last Admin: 11/22/19 09:56 Dose: 5,000 unit Vancomycin HCl (Vancomycin (Pre-Docked)) 1,000 mg in 250 mls @ 166.667 mls/hr IVPB Q12H [facility]; Protocol Last Admin: 11/21/19 23:52 Dose: 166.667 mls/hr Insulin Aspart (Novolog Vial Sliding Scale -) 1 vial SQ ACHS [facility]; Protocol Last Admin: 11/22/19 06:15 Dose: 2 units Insulin Detemir (Levemir Vial) 10 units SQ DAILY@0700 [facility] Last Admin: 11/22/19 06:15 Dose: 10 units Insulin Detemir (Levemir Vial) 25 units SQ [facility] Ondansetron HCl (Zofran Injection) 4 mg IVPUSH Q6H PRN PRN Reason: NAUSEA AND/OR VOMITING Oxycodone HCl (Roxicodone -) 10 mg PO Q6H PRN PRN Reason: PAIN LEVEL 4 - 6 Last Admin: 11/22/19 09:55 Dose: 10 mg Polyethylene Glycol (Miralax (For Daily Use) -) 17 gm PO DAILY [facility] Pregabalin (Lyrica -) 50 mg PO BID [facility] Last Admin: 11/22/19 09:55 Dose: 50 mg Rosuvastatin Calcium (Crestor -) 20 mg PO [facility] Last Admin: 11/21/19 20:59 Dose: 20 mg Senna (Senna -) 2 tab PO [facility] Last Admin: 11/21/19 20:59 Dose: 2 tab Tramadol HCl (Ultram -) 50 mg PO Q6H PRN PRN Reason: PAIN LEVEL 6-10 Last Admin: 11/21/19 19:36 Dose: 50 mg - Objective Vital Signs: Vital Signs Temperature 98.1 F 11/22/19 06:00 Pulse Rate 62 11/22/19 06:00 Respiratory Rate 20 11/22/19 06:00 Blood Pressure 119/52 L 11/22/19 06:00 O2 Sat by Pulse Oximetry (%) 95 11/21/19 21:00 Constitutional: Yes: No Distress, Calm Cardiovascular: Yes: S1, S2 Respiratory: Yes: Regular, CTA Bilaterally Gastrointestinal: Yes: Normal Bowel Sounds, Soft Musculoskeletal: Yes: WNL Extremities: Yes: Other Wound/Incision: Yes: Dressing Dry and Intact Neurological: Yes: Alert, Oriented Psychiatric: Yes: Alert, Oriented Labs: CBC, BMP 11/22/19 08:30 11/22/19 08:30 INR, PTT INR 1.13 (0.83-1.09) H 11/20/19 06:10 Assessment/Plan Problem List - Problems (1) Diabetes Code(s): E11.9 - TYPE 2 DIABETES MELLITUS WITHOUT COMPLICATIONS Qualifiers: Diabetes mellitus type: other specified (including MILTON) Diabetes mellitus moth exterminator insulin use: unspecified moth exterminator insulin use status Diabetes mellitus complication status: with other specified complication Qualified Code (s): E13.69 - Other specified diabetes mellitus with other specified complication (2) Wound of foot Code(s): S91.309A - UNSPECIFIED OPEN WOUND, UNSPECIFIED FOOT, INITIAL ENCOUNTER Assessment/Plan Lt toe abscess/paronychia r/o OM s/p drainage Uncontrolled DM Hx of Lung CA HTN HLD plan continue abx will d/w podiatry rest as per the team
[2019-11-22] MEDS: BACITRACIN 15 GM TUBE TOPICAL OINTMENT TP SCH (11:56)
[2019-11-22] MEDS: POLYETHYLENE GLYCOL 3350 119 GM BTL PO SCH (11:56)
[2019-11-22] MEDS: ACETAMINOPHEN 325 MG TABLET (FP) PO PRN ×2 (12:00→18:00)
--- NOTE | 2019-11-22 12:05 | PN ---
Physical Exam: SUBJECTIVE: Patient seen and examined. has pain of foot with movement. for u/ s today. reports constipation. OBJECTIVE: Patient is a 64 year old female with a significant past medical history of HTN, HLD, PPM, Type II NIDDM, neuropathy, and breast cancer with lung mets (s/p left lower lobe lobectomy - currently in remission). Patient was admitted for left foot abscess, who is s/p abscess drainage on 11/17/2019 who then developed worsening erythema ascending up the foot onto the ankle. She is s/p I&D drainage of left foot wound on 11/20/2019. Vital Signs Period Temp Pulse Resp BP Sys/Combs Pulse Ox Last 24 Hr 98.1 F-99.1 F 62-75 18-20 115-132/52-62 95 GENERAL: The patient is awake, alert, and fully oriented, in no acute distress. HEAD: Normal with no signs of trauma. EYES: PERRL, extraocular movements intact, sclera anicteric, conjunctiva clear. No ptosis. ENT: Ears normal, nares patent, oropharynx clear without exudates, moist mucous membranes. NECK: Trachea midline, full range of motion, supple. LUNGS: Breath sounds equal, clear to auscultation bilaterally, no wheezes HEART: Regular rate and rhythm ABDOMEN: Soft, nontender, nondistended, normoactive bowel sounds, no guarding EXTREMITIES: left foot bandaged s/p I&D on 11/20. exposed toes warm to touch, able to move toes freely. NEUROLOGICAL: Normal speech, gait not observed. PSYCH: Normal mood, normal affect. Laboratory Results - last 24 hr 11/21/19 11/21/19 11/21/19 16:46 20:53 21:50 WBC RBC Hgb Hct MCV MCH MCHC RDW Plt Count MPV Absolute Neuts (auto) Neutrophils % Lymphocytes % Monocytes % Eosinophils % Basophils % Nucleated RBC % Sodium Potassium Chloride Carbon Dioxide Anion Gap BUN Creatinine Est GFR (CKD-EPI)AfAm Est GFR (CKD-EPI)NonAf POC Glucometer 233 267 Random Glucose Calcium Magnesium Total Bilirubin AST ALT Alkaline Phosphatase Total Protein Albumin Random Vancomycin 13.6 L 11/22/19 11/22/19 11/22/19 06:01 08:30 08:30 WBC 9.9 RBC 4.29 Hgb 11.7 Hct 35.6 MCV 83.0 MCH 27.4 MCHC 33.0 RDW 13.8 Plt Count 292 MPV 6.8 L Absolute Neuts (auto) 6.4 Neutrophils % 65.1 Lymphocytes % 23.9 Monocytes % 8.7 Eosinophils % 1.8 Basophils % 0.5 Nucleated RBC % 0 Sodium 136 Potassium 4.3 Chloride 96 L Carbon Dioxide 33 H Anion Gap 7 L BUN 12.1 Creatinine 0.7 Est GFR (CKD-EPI)AfAm 106.87 Est GFR (CKD-EPI)NonAf 92.21 POC Glucometer 184 Random Glucose 210 H Calcium 9.3 Magnesium 2.1 Total Bilirubin 0.7 AST 8 L ALT 12 L Alkaline Phosphatase 95 Total Protein 6.4 Albumin 2.5 L Random Vancomycin 11/22/19 11:41 WBC RBC Hgb Hct MCV MCH MCHC RDW Plt Count MPV Absolute Neuts (auto) Neutrophils % Lymphocytes % Monocytes % Eosinophils % Basophils % Nucleated RBC % Sodium Potassium Chloride Carbon Dioxide Anion Gap BUN Creatinine Est GFR (CKD-EPI)AfAm Est GFR (CKD-EPI)NonAf POC Glucometer 223 Random Glucose Calcium Magnesium Total Bilirubin AST ALT Alkaline Phosphatase Total Protein Albumin Random Vancomycin Active Medications Generic Name Dose Route Start Last Admin Trade Name Freq PRN Reason Stop Dose Admin Acetaminophen 650 mg 11/20/19 17:13 11/22/19 12:00 Tylenol - PO 650 mg Q6H PRN Administration PAIN LEVEL 4 - 6 Bacitracin 1 applic 11/20/19 10:00 11/22/19 11:56 Bacitracin - TP 1 applic DAILY SHRUTHI Administration Docusate Sodium 100 mg 11/21/19 22:00 11/22/19 06:14 Colace - PO 100 mg TID SHRUTHI Administration Folic Acid 1 mg 11/20/19 10:00 11/22/19 09:54 Folic Acid - PO 1 mg DAILY [facility] Administration Heparin Sodium (Porcine) 5,000 unit 11/20/19 22:00 11/22/19 09:56 Heparin - SQ 5,000 unit BID [facility]HI Administration Vancomycin HCl 1,000 mg in 250 mls @ 166.667 mls/hr 11/20/19 00:00 11/21/19 23:52 Vancomycin (Pre-Docked) IVPB 166.667 mls/hr Q12H SHRUTHI Administration Protocol Insulin Aspart 1 vial 11/22/19 16:30 Novolog Vial Sliding Scale - SQ ACHS SHRUTHI Protocol Insulin Detemir 15 units 11/23/19 07:00 Levemir Vial SQ DAILY@0700 [facility] Insulin Detemir 30 units 11/22/19 22:00 Levemir Vial SQ HS [facility] Ondansetron HCl 4 mg 11/20/19 09:19 Zofran Injection IVPUSH Q6H PRN NAUSEA AND/OR VOMITING Oxycodone HCl 10 mg 11/20/19 17:13 11/22/19 09:55 Roxicodone - PO 10 mg Q6H PRN Administration PAIN LEVEL 4 - 6 Polyethylene Glycol 17 gm 11/22/19 10:00 11/22/19 11:56 Miralax (For Daily Use) - PO Not Given DAILY [facility] Pregabalin 50 mg 11/20/19 10:00 11/22/19 09:55 Lyrica - PO 50 mg BID SHRUTHI Administration Rosuvastatin Calcium 20 mg 11/20/19 22:00 11/21/19 20:59 Crestor - PO 20 mg HS SHRUTHI Administration Senna 2 tab 11/21/19 22:00 11/21/19 20:59 Senna - PO 2 tab HS SHRUTHI Administration Tramadol HCl 50 mg 11/19/19 22:17 11/21/19 19:36 Ultram - PO 50 mg Q6H PRN Administration PAIN LEVEL 6-10 ASSESSMENT/PLAN: Problem List - Problems (1) Wound of foot Assessment/Plan: Left toe infection/diabetic wound s/p I&D on 11/20/19. wbc now within normal limits. remains afebrile. wound culture pos for mrsa and remains on isolation precautions. on vanco per ID bone scan cancelled since patient had recent surgery, discussed with ID (dr goff) and length of antibiotics to be determined. patient may need tunneled catheter prior to d/c. wound care daily per surgery/podiatry bowel regimen, incentive spirometer, monitor wound, pain management. Code(s): S91.309A - UNSPECIFIED OPEN WOUND, UNSPECIFIED FOOT, INITIAL ENCOUNTER (2) HTN (hypertension) Assessment/Plan: stable off meds, monitor Code(s): I10 - ESSENTIAL (PRIMARY) HYPERTENSION (3) HLD (hyperlipidemia) Assessment/Plan: on statin Code(s): E78.5 - HYPERLIPIDEMIA, UNSPECIFIED (4) Diabetes Assessment/Plan: uncontrolled diabetes at 10.2 hmga1c per family, patient poorly complies with diabetic meds at home novlog ss tightened, on levemir 15 units a.m. 25 units p.m. goal is achieve fasting glucose <150 will need endocrinology consult on d/c but patient resides in [place] Code(s): E11.9 - TYPE 2 DIABETES MELLITUS WITHOUT COMPLICATIONS Qualifiers: Diabetes mellitus type: other specified (including [place]) Diabetes mellitus [facility] insulin use: unspecified terminal supervisor insulin use status Diabetes mellitus complication status: with other specified complication Qualified Code (s): E13.69 - Other specified diabetes mellitus with other specified complication (5) Prophylactic measure Assessment/Plan: fen tolerating po monitor vitals/labs full code heparin bid Code(s): Z29.9 - ENCOUNTER FOR PROPHYLACTIC MEASURES, UNSPECIFIED Visit type - Emergency Visit Emergency Visit: Yes ED Registration Date: 11/17/19 Care time: The patient presented to the Emergency Department on the above date and was hospitalized for further evaluation of their emergent condition. - New Patient This patient is new to me today: No - Critical Care Critical Care patient: No - Discharge Referral Referred to [facility] Med P.C.: No
--- NOTE | 2019-11-22 15:54 | PN ---
Progress Note (short form) - Note Progress Note: Podiatry F/U: Seen/evaluated at bedside NAD. S/p incision and drainage. Doing much better. Pain better controlled. Just returned from bassam/pvr test. GAGE: L foot: pedal pulses palpable, TG warm-warm, CFT brisk to toes. Sutures coapted over first interspace,; negative dehiscence. erythema far decreased from prior days , still painful on palpation, no active drainage, erythema contained over midfoot now with seom eccymosis noted, no drainage, no streaking. OR Cx: pending Initial Wound Cx: MRSA Imp: 64 year old diabetic female s/p left foot incision and drainage POD#1 Evaluated and reviewed Doing much better and looking much improved dressing changed f/u on cultures no bone scan done yet but will likely need to have IV abx given extent of the infection and proximity with the bone Will discuss with Dr. Anderson. Will f/u.
[2019-11-22] MEDS ORDERED: BISACODYL 10 MG SUPP.RECT PR ONE (16:02)
[2019-11-22] MEDS: VANCOMYCIN 1 GRAM (PRE-DOCKED) 1,000 MG/250 ML BAG IVPB SCH (16:14)
[2019-11-22] MEDS: SENNOSIDES 8.6MG TABLET (FP) PO SCH (21:24)
[2019-11-22] MEDS: ROSUVASTATIN CA 20 MG TABLET (FP) PO SCH (21:24)
[2019-11-22] MEDS: INSULIN (LEVEMIR) 100 UNITS/ML UNITS SQ SCH (21:25)
[2019-11-23] MEDS: oxyCODONE HCL 5 MG TABLET PO PRN ×2 (00:49→21:31)
[2019-11-23] MEDS: VANCOMYCIN 1 GRAM (PRE-DOCKED) 1,000 MG/250 ML BAG IVPB SCH ×2 (00:50→11:58)
[2019-11-23] MEDS: ACETAMINOPHEN 325 MG TABLET (FP) PO PRN ×2 (00:50→21:32)
[2019-11-23] MEDS: DOCUSATE SODIUM 100 MG CAPSULE (FP) PO SCH ×3 (06:02→21:32)
[2019-11-23] MEDS: INSULIN SLIDING SCALE (NOVOLOG) 1 VIAL SQ SCH ×4 (06:26→21:43)
[2019-11-23] MEDS ORDERED: INSULIN (NOVOLOG) ASPART 100 UNITS/ML 10ML VIAL ONE ×2 (06:40→11:11)
[2019-11-23] MEDS ORDERED: INSULIN (LEVEMIR) 100 UNITS/ML UNITS SQ SCH (07:00)
[2019-11-23] MEDS: BACITRACIN 15 GM TUBE TOPICAL OINTMENT TP SCH ×2 (09:34→16:34)
[2019-11-23] MEDS: PREGABALIN 50 MG CAPSULE PO SCH ×2 (09:34→21:33)
[2019-11-23] MEDS: traMADol HCL 50 MG TABLET PO PRN ×2 (09:34→17:39)
[2019-11-23] MEDS: FOLIC ACID 1 MG TABLET (FP) PO SCH (09:35)
[2019-11-23] MEDS: HEPARIN NA (PORCINE) 5,000 UNITS/ML 1ML VIAL SQ SCH ×2 (09:35→21:33)
[2019-11-23] MEDS: POLYETHYLENE GLYCOL 3350 119 GM BTL PO SCH (09:38)
[2019-11-23 09:43] LABS: BASO % 0.6 % (0-2.0); EOS % 2.2 % (0-4.5); HEMATOCRIT 35.9 % (32.4-45.2); LYMPH % 24.4 % (8-40); MCH 27.8 pg (25.7-33.7); MCHC 33.5 g/dl (32.0-36.0); MEAN CELL VOLUME 82.8 fl (80-96); MEAN PLT VOLUME 6.9 fl (7.5-11.1); MONO % 10.4 % (3.8-10.2); NEUT % 62.4 % (42.8-82.8); PLATELET COUNT 286 K/MM3 (134-434); RBC 4.34 M/mm3 (3.60-5.2)
--- NOTE | 2019-11-23 10:08 | PN ---
Progress Note, Physician History of Present Illness: stable no new issues - Current Medication List Current Medications: Active Medications Acetaminophen (Tylenol -) 650 mg PO Q6H PRN PRN Reason: PAIN LEVEL 4 - 6 Last Admin: 11/23/19 00:50 Dose: 650 mg Bacitracin (Bacitracin -) 1 applic TP DAILY [facility] Last Admin: 11/23/19 09:34 Dose: 1 applic Docusate Sodium (Colace -) 100 mg PO TID [facility] Last Admin: 11/23/19 06:02 Dose: 100 mg Folic Acid (Folic Acid -) 1 mg PO DAILY [facility] Last Admin: 11/23/19 09:35 Dose: 1 mg Heparin Sodium (Porcine) (Heparin -) 5,000 unit SQ BID [facility] Last Admin: 11/23/19 09:35 Dose: 5,000 unit Vancomycin HCl (Vancomycin (Pre-Docked)) 1,000 mg in 250 mls @ 166.667 mls/hr IVPB Q12H [facility]; Protocol Last Admin: 11/23/19 00:50 Dose: 166.667 mls/hr Insulin Aspart (Novolog Vial Sliding Scale -) 1 vial SQ [facility]; Protocol Last Admin: 11/23/19 06:26 Dose: 6 units Insulin Detemir (Levemir Vial) 15 units SQ DAILY@0700 [facility] Last Admin: 11/23/19 06:27 Dose: 15 units Insulin Detemir (Levemir Vial) 30 units SQ [facility] Last Admin: 11/22/19 21:25 Dose: 30 units Ondansetron HCl (Zofran Injection) 4 mg IVPUSH Q6H PRN PRN Reason: NAUSEA AND/OR VOMITING Oxycodone HCl (Roxicodone -) 10 mg PO Q6H PRN PRN Reason: PAIN LEVEL 4 - 6 Last Admin: 11/23/19 00:49 Dose: 10 mg Polyethylene Glycol (Miralax (For Daily Use) -) 17 gm PO DAILY [facility] Last Admin: 11/23/19 09:38 Dose: 17 gm Pregabalin (Lyrica -) 50 mg PO BID [facility] Last Admin: 11/23/19 09:34 Dose: 50 mg Rosuvastatin Calcium (Crestor -) 20 mg PO [facility] Last Admin: 11/22/19 21:24 Dose: 20 mg Senna (Senna -) 2 tab PO [facility] Last Admin: 11/22/19 21:24 Dose: 2 tab Tramadol HCl (Ultram -) 50 mg PO Q6H PRN PRN Reason: PAIN LEVEL 6-10 Last Admin: 11/23/19 09:34 Dose: 50 mg - Objective Vital Signs: Vital Signs Temperature 98.0 F 11/23/19 06:00 Pulse Rate 65 11/23/19 06:00 Respiratory Rate 18 11/23/19 06:00 Blood Pressure 128/63 11/23/19 06:00 O2 Sat by Pulse Oximetry (%) 96 11/22/19 20:15 Constitutional: Yes: No Distress, Calm Cardiovascular: Yes: S1, S2 Respiratory: Yes: Regular, CTA Bilaterally Gastrointestinal: Yes: Normal Bowel Sounds, Soft Musculoskeletal: Yes: WNL Extremities: Yes: Other Wound/Incision: Yes: Dressing Dry and Intact Neurological: Yes: Alert, Oriented Psychiatric: Yes: Alert, Oriented Labs: CBC, BMP 11/23/19 07:50 INR, PTT INR 1.13 (0.83-1.09) H 11/20/19 06:10 Assessment/Plan Problem List - Problems (1) Diabetes Code(s): E11.9 - TYPE 2 DIABETES MELLITUS WITHOUT COMPLICATIONS Qualifiers: Diabetes mellitus type: other specified (including [place]TON) Diabetes 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
[2019-11-23 10:16] LABS: ALBUMIN 2.6 g/dl (3.4-5.0); BILIRUBIN,TOTAL 1.1 mg/dL (0.2-1); BLOOD UREA NITROGEN 13.5 mg/dL (7-18); CALCIUM 9.6 mg/dL (8.5-10.1); CREATININE 0.6 mg/dL (0.55-1.3); MAGNESIUM 2.2 mg/dL (1.8-2.4); POTASSIUM 4.3 mmol/L (3.5-5.1); TOT PROT 6.5 g/dl (6.4-8.2)
--- NOTE | 2019-11-23 10:49 | PN ---
Physical Exam: SUBJECTIVE: Patient seen and examined at the bedside. sitting in chair, denies pain. OBJECTIVE: Patient is a 64 year old female with a significant past medical history of HTN, HLD, PPM, Type II NIDDM, neuropathy, and breast cancer with lung mets (s/p left lower lobe lobectomy - currently in remission). Patient was admitted for left foot abscess, who is s/p abscess drainage on 11/17/2019 who then developed worsening erythema ascending up the foot onto the ankle. She is s/p I&D drainage of left foot wound on 11/20/2019. Vital Signs Period Temp Pulse Resp BP Sys/Combs Pulse Ox Last 24 Hr 97.9 F-98.0 F 62-70 18-18 114-128/53-76 96 GENERAL: The patient is awake, alert, and fully oriented, in no acute distress. HEAD: Normal with no signs of trauma. EYES: PERRL, extraocular movements intact, sclera anicteric, conjunctiva clear. No ptosis. ENT: Ears normal, nares patent, oropharynx clear without exudates, moist mucous membranes. NECK: Trachea midline, full range of motion, supple. LUNGS: Breath sounds equal, clear to auscultation bilaterally, no wheezes HEART: Regular rate and rhythm ABDOMEN: Soft, nontender, nondistended, normoactive bowel sounds, no guarding EXTREMITIES: left foot bandaged s/p I&D on 11/20. exposed toes warm to touch, able to move toes freely. NEUROLOGICAL: Normal speech, gait not observed. PSYCH: Normal mood, normal affect. Laboratory Results - last 24 hr 11/22/19 11/22/19 11/22/19 11:41 16:32 21:22 WBC RBC Hgb Hct MCV MCH MCHC RDW Plt Count MPV Absolute Neuts (auto) Neutrophils % Lymphocytes % Monocytes % Eosinophils % Basophils % Nucleated RBC % Sodium Potassium Chloride Carbon Dioxide Anion Gap BUN Creatinine Est GFR (CKD-EPI)AfAm Est GFR (CKD-EPI)NonAf POC Glucometer 223 206 219 Random Glucose Calcium Magnesium Total Bilirubin AST ALT Alkaline Phosphatase Total Protein Albumin 11/23/19 11/23/19 11/23/19 05:59 07:50 07:50 WBC 8.0 RBC 4.34 Hgb 12.0 Hct 35.9 MCV 82.8 MCH 27.8 MCHC 33.5 RDW 14.0 Plt Count 286 MPV 6.9 L Absolute Neuts (auto) 5.0 Neutrophils % 62.4 Lymphocytes % 24.4 Monocytes % 10.4 H Eosinophils % 2.2 Basophils % 0.6 Nucleated RBC % 0 Sodium 137 Potassium 4.3 Chloride 96 L Carbon Dioxide 34 H Anion Gap 7 L BUN 13.5 Creatinine 0.6 Est GFR (CKD-EPI)AfAm 112.43 Est GFR (CKD-EPI)NonAf 97.01 POC Glucometer 211 Random Glucose 167 H Calcium 9.6 Magnesium 2.2 Total Bilirubin 1.1 H AST 15 ALT 13 Alkaline Phosphatase 94 Total Protein 6.5 Albumin 2.6 L Active Medications Generic Name Dose Route Start Last Admin Trade Name Freq PRN Reason Stop Dose Admin Acetaminophen 650 mg 11/20/19 17:13 11/23/19 00:50 Tylenol - PO 650 mg Q6H PRN Administration PAIN LEVEL 4 - 6 Bacitracin 1 applic 11/20/19 10:00 11/23/19 09:34 Bacitracin - TP 1 applic DAILY [facility]HI Administration Docusate Sodium 100 mg 11/21/19 22:00 11/23/19 06:02 Colace - PO 100 mg TID [facility]HI Administration Folic Acid 1 mg 11/20/19 10:00 11/23/19 09:35 Folic Acid - PO 1 mg DAILY [facility] Administration Heparin Sodium (Porcine) 5,000 unit 11/20/19 22:00 11/23/19 09:35 Heparin - SQ 5,000 unit BID [facility]HI Administration Vancomycin HCl 1,000 mg in 250 mls @ 166.667 mls/hr 11/20/19 00:00 11/23/19 00:50 Vancomycin (Pre-Docked) IVPB 166.667 mls/hr Q12H [facility] Administration Protocol Insulin Aspart 1 vial 11/22/19 16:30 11/23/19 06:26 Novolog Vial Sliding Scale - SQ 6 units ACHS [facility]HI Administration Protocol Insulin Detemir 15 units 11/23/19 07:00 11/23/19 06:27 Levemir Vial SQ 15 units DAILY@0700 [facility] Administration Insulin Detemir 30 units 11/22/19 22:00 11/22/19 21:25 Levemir Vial SQ 30 units HS [facility] Administration Ondansetron HCl 4 mg 11/20/19 09:19 Zofran Injection IVPUSH Q6H PRN NAUSEA AND/OR VOMITING Oxycodone HCl 10 mg 11/20/19 17:13 11/23/19 00:49 Roxicodone - PO 10 mg Q6H PRN Administration PAIN LEVEL 4 - 6 Polyethylene Glycol 17 gm 11/22/19 10:00 11/23/19 09:38 Miralax (For Daily Use) - PO 17 gm DAILY [facility] Administration Pregabalin 50 mg 11/20/19 10:00 11/23/19 09:34 Lyrica - PO 50 mg BID [facility] Administration Rosuvastatin Calcium 20 mg 11/20/19 22:00 11/22/19 21:24 Crestor - PO 20 mg HS [facility]HI Administration Senna 2 tab 11/21/19 22:00 11/22/19 21:24 Senna - PO 2 tab HS [facility]HI Administration Tramadol HCl 50 mg 11/19/19 22:17 11/23/19 09:34 Ultram - PO 50 mg Q6H PRN Administration PAIN LEVEL 6-10 ASSESSMENT/PLAN: Problem List - Problems (1) Wound of foot Assessment/Plan: Left toe infection/diabetic wound s/p I&D on 11/20/19. wbc now within normal limits. remains afebrile. wound culture pos for mrsa and remains on isolation precautions. on vanco per ID bone scan cancelled since patient had recent surgery, discussed with ID (dr goff) and length of antibiotics to be determined. patient may need tunneled catheter prior to d/c. wound care daily per surgery/podiatry bowel regimen, incentive spirometer, monitor wound, pain management. vascular consulted by podiatry Code(s): S91.309A - UNSPECIFIED OPEN WOUND, UNSPECIFIED FOOT, INITIAL ENCOUNTER (2) HTN (hypertension) Assessment/Plan: stable off meds, monitor Code(s): I10 - ESSENTIAL (PRIMARY) HYPERTENSION (3) HLD (hyperlipidemia) Assessment/Plan: on statin Code(s): E78.5 - HYPERLIPIDEMIA, UNSPECIFIED (4) Diabetes Assessment/Plan: uncontrolled diabetes at 10.2 [id number] tightened sliding scale and increased levemir to 20 in a.m, levemir 30 at hs. goal is achieve fasting glucose <150 will need endocrinology consult on d/c but patient resides in [place] Code(s): E11.9 - TYPE 2 DIABETES MELLITUS WITHOUT COMPLICATIONS Qualifiers: Diabetes mellitus type: other specified (including [place]) Diabetes mellitus penitentiary insulin use: unspecified penitentiary insulin use status Diabetes mellitus complication status: with other specified complication Qualified Code (s): E13.69 - Other specified diabetes mellitus with other specified complication (5) Prophylactic measure Assessment/Plan: fen tolerating po monitor vitals/labs full code heparin bid Code(s): Z29.9 - ENCOUNTER FOR PROPHYLACTIC MEASURES, UNSPECIFIED Visit type - Emergency Visit Emergency Visit: Yes ED Registration Date: 11/17/19 Care time: The patient presented to the Emergency Department on the above date and was hospitalized for further evaluation of their emergent condition. - New Patient This patient is new to me today: No - Critical Care Critical Care patient: No - Discharge Referral Referred to [facility] Med P.C.: No
[2019-11-23 13:08] LABS: ANISOCYTOSIS 0; MACROCYTOSIS 0; PLATELET ESTIMATE NORMAL
[2019-11-23] MEDS: SENNOSIDES 8.6MG TABLET (FP) PO SCH (21:33)
[2019-11-23] MEDS: ROSUVASTATIN CA 20 MG TABLET (FP) PO SCH (21:34)
[2019-11-23] MEDS: INSULIN (LEVEMIR) 100 UNITS/ML UNITS SQ SCH (21:38)
[2019-11-24] MEDS: VANCOMYCIN 1 GRAM (PRE-DOCKED) 1,000 MG/250 ML BAG IVPB SCH ×3 (00:04→23:58)
[2019-11-24] MEDS: DOCUSATE SODIUM 100 MG CAPSULE (FP) PO SCH ×3 (06:07→21:25)
[2019-11-24] MEDS: INSULIN SLIDING SCALE (NOVOLOG) 1 VIAL SQ SCH ×4 (06:07→21:25)
[2019-11-24] MEDS: INSULIN (LEVEMIR) 100 UNITS/ML UNITS SQ SCH ×2 (06:07→21:25)
[2019-11-24] MEDS: ACETAMINOPHEN 325 MG TABLET (FP) PO PRN ×2 (06:35→21:24)
[2019-11-24] MEDS: oxyCODONE HCL 5 MG TABLET PO PRN ×2 (06:36→21:25)
[2019-11-24 08:02] LABS: BASO % 0.5 % (0-2.0); EOS % 2.2 % (0-4.5); HEMATOCRIT 35.2 % (32.4-45.2); HEMOGLOBIN 11.7 GM/dL (10.7-15.3); LYMPH % 25.6 % (8-40); MCH 27.4 pg (25.7-33.7); MCHC 33.2 g/dl (32.0-36.0); MEAN CELL VOLUME 82.5 fl (80-96); MEAN PLT VOLUME 6.8 fl (7.5-11.1); MONO % 9.4 % (3.8-10.2); NEUT % 62.3 % (42.8-82.8); PLATELET COUNT 315 K/MM3 (134-434); RBC 4.26 M/mm3 (3.60-5.2); RDW 14.2 % (11.6-15.6); WHITE BLOOD COUNT 8.1 K/mm3 (4.0-10.0)
[2019-11-24 08:34] LABS: ALBUMIN 2.5 g/dl (3.4-5.0); BILIRUBIN,TOTAL 0.6 mg/dL (0.2-1); BLOOD UREA NITROGEN 13.7 mg/dL (7-18); CALCIUM 9.4 mg/dL (8.5-10.1); CREATININE 0.6 mg/dL (0.55-1.3); MAGNESIUM 2.2 mg/dL (1.8-2.4); POTASSIUM 4.1 mmol/L (3.5-5.1); TOT PROT 6.4 g/dl (6.4-8.2)
[2019-11-24] MEDS: HEPARIN NA (PORCINE) 5,000 UNITS/ML 1ML VIAL SQ SCH ×2 (09:17→21:24)
[2019-11-24] MEDS: PREGABALIN 50 MG CAPSULE PO SCH ×2 (09:17→21:25)
[2019-11-24] MEDS: FOLIC ACID 1 MG TABLET (FP) PO SCH (09:17)
[2019-11-24] MEDS: BACITRACIN 15 GM TUBE TOPICAL OINTMENT TP SCH (09:17)
[2019-11-24] MEDS: POLYETHYLENE GLYCOL 3350 119 GM BTL PO SCH (09:19)
--- NOTE | 2019-11-24 11:21 | PN ---
Progress Note, Physician History of Present Illness: stable no new issues - Current Medication List Current Medications: Active Medications Acetaminophen (Tylenol -) 650 mg PO Q6H PRN PRN Reason: PAIN LEVEL 4 - 6 Last Admin: 11/24/19 06:35 Dose: 650 mg Bacitracin (Bacitracin -) 1 applic TP DAILY [facility] Last Admin: 11/24/19 09:17 Dose: 1 applic Docusate Sodium (Colace -) 100 mg PO TID [facility] Last Admin: 11/24/19 06:07 Dose: 100 mg Folic Acid (Folic Acid -) 1 mg PO DAILY [facility] Last Admin: 11/24/19 09:17 Dose: 1 mg Heparin Sodium (Porcine) (Heparin -) 5,000 unit SQ BID [facility] Last Admin: 11/24/19 09:17 Dose: 5,000 unit Vancomycin HCl (Vancomycin (Pre-Docked)) 1,000 mg in 250 mls @ 166.667 mls/hr IVPB Q12H [facility]; Protocol Last Admin: 11/24/19 00:04 Dose: 166.667 mls/hr Insulin Aspart (Novolog Vial Sliding Scale -) 1 vial SQ ACHS [facility]; Protocol Last Admin: 11/24/19 06:07 Dose: Not Given Insulin Detemir (Levemir Vial) 30 units SQ [facility] Last Admin: 11/23/19 21:38 Dose: 30 units Insulin Detemir (Levemir Vial) 20 units SQ DAILY@0700 [facility] Last Admin: 11/24/19 06:07 Dose: 20 units Ondansetron HCl (Zofran Injection) 4 mg IVPUSH Q6H PRN PRN Reason: NAUSEA AND/OR VOMITING Oxycodone HCl (Roxicodone -) 10 mg PO Q6H PRN PRN Reason: PAIN LEVEL 4 - 6 Last Admin: 11/24/19 06:36 Dose: 10 mg Polyethylene Glycol (Miralax (For Daily Use) -) 17 gm PO DAILY [facility] Last Admin: 11/24/19 09:19 Dose: 17 gm Pregabalin (Lyrica -) 50 mg PO BID [facility] Last Admin: 11/24/19 09:17 Dose: 50 mg Rosuvastatin Calcium (Crestor -) 20 mg PO [facility] Last Admin: 11/23/19 21:34 Dose: 20 mg Senna (Senna -) 2 tab PO [facility] Last Admin: 11/23/19 21:33 Dose: 2 tab Tramadol HCl (Ultram -) 50 mg PO Q6H PRN PRN Reason: PAIN LEVEL 6-10 Last Admin: 11/23/19 17:39 Dose: 50 mg - Objective Vital Signs: Vital Signs Temperature 98.1 F 11/24/19 06:39 Pulse Rate 63 11/24/19 06:39 Respiratory Rate 18 11/24/19 06:39 Blood Pressure 115/62 11/24/19 06:39 O2 Sat by Pulse Oximetry (%) 95 11/24/19 09:00 Constitutional: Yes: No Distress, Calm Respiratory: Yes: Regular, CTA Bilaterally Gastrointestinal: Yes: Normal Bowel Sounds, Soft Musculoskeletal: Yes: WNL Extremities: Yes: Other Wound/Incision: Yes: Dressing Dry and Intact Neurological: Yes: Alert, Oriented Psychiatric: Yes: Alert Labs: CBC, BMP 11/24/19 06:40 11/24/19 06:40 INR, PTT INR 1.13 (0.83-1.09) H 11/20/19 06:10 Assessment/Plan Problem List - Problems (1) Diabetes Code(s): E11.9 - TYPE 2 DIABETES MELLITUS WITHOUT COMPLICATIONS Qualifiers: Diabetes mellitus type: other specified (including [place]) 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
[2019-11-24] MEDS ORDERED: INSULIN (NOVOLOG) ASPART 100 UNITS/ML 10ML VIAL ONE ×2 (11:51→16:43)
[2019-11-24 12:19] LABS: ANISOCYTOSIS 1+; PLATELET ESTIMATE NORMAL; ROULEAU 1+; TEAR DROP CELLS 1+
--- NOTE | 2019-11-24 12:24 | PN ---
Progress Note (short form) - Note Progress Note: Podiatry F/U: Seen/evaluated at bedside NAD. S/p incision and drainage. GAGE: L foot: pedal pulses palpable, TG warm-warm, CFT brisk to toes. Sutures coapted over first interspace,; negative dehiscence. erythema far decreased from prior days, still present though around the midfoot but no streaking , still painful on palpation, no active drainage, ++ eccymosis noted , no drainage , no streaking. OR Cx: pending Initial Wound Cx: MRSA Imp: 64 year old diabetic female s/p left foot incision and drainage POD#1 Evaluated and reviewed Still stable WBC wnl Iv abx per ID; will likely need long termIv's given extent of infection Will discuss with Dr. Anderson further Vascular eval pending. Will f/u
[2019-11-24 12:42] VITALS: BMI 35.2
--- NOTE | 2019-11-24 15:52 | PN ---
Physical Exam: SUBJECTIVE: Patient seen and examined. denies pain. OBJECTIVE: Patient is a 64 year old female with a significant past medical history of HTN, HLD, PPM, Type II NIDDM, neuropathy, and breast cancer with lung mets (s/p left lower lobe lobectomy - currently in remission). Patient was admitted for left foot abscess, who is s/p abscess drainage on 11/17/2019 who then developed worsening erythema ascending up the foot onto the ankle. She is s/p I&D drainage of left foot wound on 11/20/2019. She will need a central line for senior care antibiotics prior to d/c. length of antibiotic therapy to be decided by ID. Awaiting insurance auth for SNF. Vital Signs Period Temp Pulse Resp BP Sys/Combs Pulse Ox Last 24 Hr 97.7 F-98.1 F 63-68 18-18 115-148/62-69 95-95 GENERAL: The patient is awake, alert, and fully oriented, in no acute distress. HEAD: Normal with no signs of trauma. EYES: PERRL, extraocular movements intact, sclera anicteric, conjunctiva clear. No ptosis. ENT: Ears normal, nares patent, oropharynx clear without exudates NECK: Trachea midline, full range of motion, supple. LUNGS: Breath sounds equal, diminished bilaterally HEART: Regular rate and rhythm ABDOMEN: Soft, nontender, nondistended, normoactive bowel sounds EXTREMITIES: no edema. NEUROLOGICAL: Normal speech, gait not observed. PSYCH: Normal mood, normal affect. SKIN: Warm, dry, normal turgor, no rashes or lesions noted Laboratory Results - last 24 hr 11/23/19 11/23/19 11/24/19 16:22 21:40 06:00 WBC RBC Hgb Hct MCV MCH MCHC RDW Plt Count MPV Absolute Neuts (auto) Neutrophils % Neutrophils % (Manual) Band Neutrophils % Lymphocytes % Lymphocytes % (Manual) Monocytes % Monocytes % (Manual) Eosinophils % Eosinophils % (Manual) Basophils % Basophils % (Manual) Myelocytes % (Man) Promyelocytes % (Man) Blast Cells % (Manual) Nucleated RBC % Metamyelocytes Hypochromia Platelet Estimate Platelet Comment Polychromasia Poikilocytosis Anisocytosis Microcytosis Spherocytes Tear Drop Cells [place] Cells Rouleaux Sodium Potassium Chloride Carbon Dioxide Anion Gap BUN Creatinine Est GFR (CKD-EPI)AfAm Est GFR (CKD-EPI)NonAf POC Glucometer 215 173 100 Random Glucose Calcium Magnesium Total Bilirubin AST ALT Alkaline Phosphatase Total Protein Albumin 11/24/19 11/24/19 11/24/19 06:40 06:40 11:36 WBC 8.1 RBC 4.26 Hgb 11.7 Hct 35.2 MCV 82.5 MCH 27.4 MCHC 33.2 RDW 14.2 Plt Count 315 MPV 6.8 L Absolute Neuts (auto) 5.0 Neutrophils % 62.3 Neutrophils % (Manual) 58.2 Band Neutrophils % 5.1 Lymphocytes % 25.6 Lymphocytes % (Manual) 23.5 D Monocytes % 9.4 Monocytes % (Manual) 8 Eosinophils % 2.2 Eosinophils % (Manual) 1.0 Basophils % 0.5 Basophils % (Manual) 0.0 Myelocytes % (Man) 0 D Promyelocytes % (Man) 0 Blast Cells % (Manual) 0 Nucleated RBC % 0 Metamyelocytes 1 D Hypochromia 0 Platelet Estimate Normal Platelet Comment Present Polychromasia 1+ Poikilocytosis 1+ Anisocytosis 1+ Microcytosis 1+ Spherocytes 1+ Tear Drop Cells 1+ Ritchie Cells 1+ Rouleaux 1+ Sodium 137 Potassium 4.1 Chloride 98 Carbon Dioxide 35 H Anion Gap 4 L BUN 13.7 Creatinine 0.6 Est GFR (CKD-EPI)AfAm 112.43 Est GFR (CKD-EPI)NonAf 97.01 POC Glucometer 154 Random Glucose 86 Calcium 9.4 Magnesium 2.2 Total Bilirubin 0.6 AST 13 L ALT 14 Alkaline Phosphatase 95 Total Protein 6.4 Albumin 2.5 L Active Medications Generic Name Dose Route Start Last Admin Trade Name Freq PRN Reason Stop Dose Admin Acetaminophen 650 mg 11/20/19 17:13 11/24/19 06:35 Tylenol - PO 650 mg Q6H PRN Administration PAIN LEVEL 4 - 6 Bacitracin 1 applic 11/20/19 10:00 11/24/19 09:17 Bacitracin - TP 1 applic DAILY SHRUTHI Administration Docusate Sodium 100 mg 11/21/19 22:00 11/24/19 14:41 Colace - PO 100 mg TID SHRUTHI Administration Folic Acid 1 mg 11/20/19 10:00 11/24/19 09:17 Folic Acid - PO 1 mg DAILY [facility]HI Administration Heparin Sodium (Porcine) 5,000 unit 11/20/19 22:00 11/24/19 09:17 Heparin - SQ 5,000 unit BID [facility]HI Administration Vancomycin HCl 1,000 mg in 250 mls @ 166.667 mls/hr 11/20/19 00:00 11/24/19 11:46 Vancomycin (Pre-Docked) IVPB 166.667 mls/hr Q12H SH[facility]HI Administration Protocol Insulin Aspart 1 vial 11/23/19 16:26 11/24/19 11:52 Novolog Vial Sliding Scale - SQ 6 units ACHS SHRUTHI Administration Protocol Insulin Detemir 30 units 11/22/19 22:00 11/23/19 21:38 Levemir Vial SQ 30 units HS [facility]HI Administration Insulin Detemir 20 units 11/24/19 07:00 11/24/19 06:07 Levemir Vial SQ 20 units DAILY@0700 [facility]HI Administration Ondansetron HCl 4 mg 11/20/19 09:19 Zofran Injection IVPUSH Q6H PRN NAUSEA AND/OR VOMITING Oxycodone HCl 10 mg 11/20/19 17:13 11/24/19 06:36 Roxicodone - PO 10 mg Q6H PRN Administration PAIN LEVEL 4 - 6 Polyethylene Glycol 17 gm 11/22/19 10:00 11/24/19 09:19 Miralax (For Daily Use) - PO 17 gm DAILY SHRUTHI Administration Pregabalin 50 mg 11/20/19 10:00 11/24/19 09:17 Lyrica - PO 50 mg BID [facility]RUTHI Administration Rosuvastatin Calcium 20 mg 11/20/19 22:00 11/23/19 21:34 Crestor - PO 20 mg HS SHRUTHI Administration Senna 2 tab 11/21/19 22:00 11/23/19 21:33 Senna - PO 2 tab HS SHRUTHI Administration Tramadol HCl 50 mg 11/19/19 22:17 11/23/19 17:39 Ultram - PO 50 mg Q6H PRN Administration PAIN LEVEL 6-10 ASSESSMENT/PLAN: Problem List - Problems (1) Wound of foot Assessment/Plan: Left toe infection/diabetic wound s/p I&D on 11/20/19. wbc now within normal limits. remains afebrile. wound culture pos for mrsa and remains on isolation precautions. on vanco per ID bone scan cancelled since patient had recent surgery, discussed with ID (dr goff) and length of antibiotics to be determined. patient may need tunneled catheter prior to d/c. wound care daily per surgery/podiatry bowel regimen, incentive spirometer, monitor wound, pain management. vascular consulted by podiatry Code(s): S91.309A - UNSPECIFIED OPEN WOUND, UNSPECIFIED FOOT, INITIAL ENCOUNTER (2) HTN (hypertension) Assessment/Plan: stable off meds, monitor Code(s): I10 - ESSENTIAL (PRIMARY) HYPERTENSION (3) HLD (hyperlipidemia) Assessment/Plan: on statin Code(s): E78.5 - HYPERLIPIDEMIA, UNSPECIFIED (4) Diabetes Assessment/Plan: improving. continue levemir to 20 in a.m, levemir 30 at hs. 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 - New Patient This patient is new to me today: No - Critical Care Critical Care patient: No - Discharge Referral Referred to [facility] Med P.C.: No
[2019-11-24] MEDS: traMADol HCL 50 MG TABLET PO PRN (16:45)
--- NOTE | 2019-11-24 17:23 | PN ---
Progress Note (short form) - Note Progress Note: Vascular surgery consult placed for evaluation of LE flow s/p left toe/foot debridement. strong DP and PT signals on doppler bilaterally., NVID with feet warm and well perfused. Full consult note to follow
--- NOTE | 2019-11-24 18:20 | PN ---
Progress Note (short form) - Note Progress Note: VAscular Surgery Pt seen and examined. Left foot I&D. Palpable DP pulse. Should heal well. Cont present care. Zain Aponte DO
[2019-11-24] MEDS: SENNOSIDES 8.6MG TABLET (FP) PO SCH (21:24)
[2019-11-24] MEDS: ROSUVASTATIN CA 20 MG TABLET (FP) PO SCH (21:25)
[2019-11-25] MEDS: traMADol HCL 50 MG TABLET PO PRN ×2 (00:51→09:28)
[2019-11-25] MEDS: DOCUSATE SODIUM 100 MG CAPSULE (FP) PO SCH ×3 (06:05→21:37)
[2019-11-25] MEDS: INSULIN SLIDING SCALE (NOVOLOG) 1 VIAL SQ SCH ×4 (06:06→21:38)
[2019-11-25] MEDS: INSULIN (LEVEMIR) 100 UNITS/ML UNITS SQ SCH ×2 (06:06→21:37)
[2019-11-25] MEDS: ACETAMINOPHEN 325 MG TABLET (FP) PO PRN ×2 (07:02→21:38)
[2019-11-25] MEDS: oxyCODONE HCL 5 MG TABLET PO PRN ×2 (07:02→21:39)
[2019-11-25 07:59] LABS: BASO % 0.5 % (0-2.0); EOS % 2.1 % (0-4.5); HEMATOCRIT 34.3 % (32.4-45.2); HEMOGLOBIN 11.4 GM/dL (10.7-15.3); LYMPH % 29.5 % (8-40); MCH 27.3 pg (25.7-33.7); MCHC 33.3 g/dl (32.0-36.0); MEAN PLT VOLUME 6.7 fl (7.5-11.1); MONO % 10.2 % (3.8-10.2); NEUT % 57.7 % (42.8-82.8); PLATELET COUNT 310 K/MM3 (134-434); RBC 4.19 M/mm3 (3.60-5.2); WHITE BLOOD COUNT 8.8 K/mm3 (4.0-10.0)
[2019-11-25 09:26] LABS: ALBUMIN 2.5 g/dl (3.4-5.0); BILIRUBIN,TOTAL 0.7 mg/dL (0.2-1); BLOOD UREA NITROGEN 14.7 mg/dL (7-18); CALCIUM 9.4 mg/dL (8.5-10.1); CREATININE 0.6 mg/dL (0.55-1.3); MAGNESIUM 2.1 mg/dL (1.8-2.4); POTASSIUM 4.3 mmol/L (3.5-5.1); TOT PROT 6.4 g/dl (6.4-8.2)
[2019-11-25] MEDS: PREGABALIN 50 MG CAPSULE PO SCH ×2 (09:28→21:37)
[2019-11-25] MEDS: FOLIC ACID 1 MG TABLET (FP) PO SCH (09:29)
[2019-11-25] MEDS: HEPARIN NA (PORCINE) 5,000 UNITS/ML 1ML VIAL SQ SCH ×2 (09:29→21:38)
--- NOTE | 2019-11-25 10:53 | PN ---
Physical Exam: SUBJECTIVE: Patient seen and examined at the bedside. feels well today, sitting in chair. denies any malaise or pain. OBJECTIVE: Patient is a 64 year old female with a significant past medical history of HTN, HLD, PPM, Type II NIDDM, neuropathy, and breast cancer with lung mets (s/p left lower lobe lobectomy - currently in remission). Patient was admitted for left foot abscess, who is s/p abscess drainage on 11/17/2019 who then developed worsening erythema ascending up the foot onto the ankle. She is s/p I&D drainage of left foot wound on 11/20/2019. She will need a central line for child care nurse antibiotics prior to d/c. will need a total of 6 weeks of vancomycin per ID. Awaiting insurance auth for SNF. Vital Signs Period Temp Pulse Resp BP Sys/Combs Pulse Ox Last 24 Hr 97.7 F-99.8 F 61-76 18-20 105-149/49-72 94-95 GENERAL: The patient is awake, alert, and fully oriented, in no acute distress. HEAD: Normal with no signs of trauma. EYES: PERRL, extraocular movements intact, sclera anicteric, conjunctiva clear. No ptosis. ENT: Ears normal, nares patent, oropharynx clear without exudates NECK: Trachea midline, full range of motion, supple. LUNGS: Breath sounds equal, diminished bilaterally HEART: Regular rate and rhythm ABDOMEN: Soft, nontender, nondistended, normoactive bowel sounds EXTREMITIES: no edema. NEUROLOGICAL: Normal speech, gait not observed. PSYCH: Normal mood, normal affect. SKIN: Warm, dry, normal turgor, no rashes or lesions noted Laboratory Results - last 24 hr 11/24/19 11/24/19 11/24/19 06:40 11:36 16:39 WBC RBC Hgb Hct MCV MCH MCHC RDW Plt Count MPV Absolute Neuts (auto) Neutrophils % Neutrophils % (Manual) 58.2 Band Neutrophils % 5.1 Lymphocytes % Lymphocytes % (Manual) 23.5 D Monocytes % Monocytes % (Manual) 8 Eosinophils % Eosinophils % (Manual) 1.0 Basophils % Basophils % (Manual) 0.0 Myelocytes % (Man) 0 D Promyelocytes % (Man) 0 Blast Cells % (Manual) 0 Nucleated RBC % 0 Metamyelocytes 1 D Hypochromia 0 Platelet Estimate Normal Platelet Comment Present Polychromasia 1+ Poikilocytosis 1+ Anisocytosis 1+ Microcytosis 1+ Spherocytes 1+ Tear Drop Cells 1+ Ritchie Cells 1+ Rouleaux 1+ Sodium Potassium Chloride Carbon Dioxide Anion Gap BUN Creatinine Est GFR (CKD-EPI)AfAm Est GFR (CKD-EPI)NonAf POC Glucometer 154 183 Random Glucose Calcium Magnesium Total Bilirubin AST ALT Alkaline Phosphatase Total Protein Albumin 11/24/19 11/25/19 11/25/19 20:37 05:45 06:45 WBC 8.8 RBC 4.19 Hgb 11.4 Hct 34.3 MCV 82.0 MCH 27.3 MCHC 33.3 RDW 14.0 Plt Count 310 MPV 6.7 L Absolute Neuts (auto) 5.0 Neutrophils % 57.7 Neutrophils % (Manual) Band Neutrophils % Lymphocytes % 29.5 Lymphocytes % (Manual) Monocytes % 10.2 Monocytes % (Manual) Eosinophils % 2.1 Eosinophils % (Manual) Basophils % 0.5 Basophils % (Manual) Myelocytes % (Man) Promyelocytes % (Man) Blast Cells % (Manual) Nucleated RBC % 0 Metamyelocytes Hypochromia Platelet Estimate Platelet Comment Polychromasia Poikilocytosis Anisocytosis Microcytosis Spherocytes Tear Drop Cells [place] Cells Rouleaux Sodium Potassium Chloride Carbon Dioxide Anion Gap BUN Creatinine Est GFR (CKD-EPI)AfAm Est GFR (CKD-EPI)NonAf POC Glucometer 198 105 Random Glucose Calcium Magnesium Total Bilirubin AST ALT Alkaline Phosphatase Total Protein Albumin 11/25/19 06:45 WBC RBC Hgb Hct MCV MCH MCHC RDW Plt Count MPV Absolute Neuts (auto) Neutrophils % Neutrophils % (Manual) Band Neutrophils % Lymphocytes % Lymphocytes % (Manual) Monocytes % Monocytes % (Manual) Eosinophils % Eosinophils % (Manual) Basophils % Basophils % (Manual) Myelocytes % (Man) Promyelocytes % (Man) Blast Cells % (Manual) Nucleated RBC % Metamyelocytes Hypochromia Platelet Estimate Platelet Comment Polychromasia Poikilocytosis Anisocytosis Microcytosis Spherocytes Tear Drop Cells [place]itchie Cells Rouleaux Sodium 136 Potassium 4.3 Chloride 98 Carbon Dioxide 31 Anion Gap 7 L BUN 14.7 Creatinine 0.6 Est GFR (CKD-EPI)AfAm 112.43 Est GFR (CKD-EPI)NonAf 97.01 POC Glucometer Random Glucose 106 Calcium 9.4 Magnesium 2.1 Total Bilirubin 0.7 AST 15 ALT 15 Alkaline Phosphatase 95 Total Protein 6.4 Albumin 2.5 L Active Medications Generic Name Dose Route Start Last Admin Trade Name Freq PRN Reason Stop Dose Admin Acetaminophen 650 mg 11/20/19 17:13 11/25/19 07:02 Tylenol - PO 650 mg Q6H PRN Administration PAIN LEVEL 4 - 6 Bacitracin 1 applic 11/20/19 10:00 11/24/19 09:17 Bacitracin - TP 1 applic DAILY [facility] Administration Docusate Sodium 100 mg 11/21/19 22:00 11/25/19 06:05 Colace - PO 100 mg TID SHRUTHI Administration Folic Acid 1 mg 11/20/19 10:00 11/25/19 09:29 Folic Acid - PO 1 mg DAILY [facility] Administration Heparin Sodium (Porcine) 5,000 unit 11/20/19 22:00 11/25/19 09:29 Heparin - SQ 5,000 unit BID SHRUTHI Administration Vancomycin HCl 1,000 mg in 250 mls @ 166.667 mls/hr 11/20/19 00:00 11/24/19 23:58 Vancomycin (Pre-Docked) IVPB 166.667 mls/hr Q12H [facility] Administration Protocol Insulin Aspart 1 vial 11/23/19 16:26 11/25/19 06:06 Novolog Vial Sliding Scale - SQ Not Given ACHS [facility] Protocol Insulin Detemir 30 units 11/22/19 22:00 11/24/19 21:25 Levemir Vial SQ 30 units HS [facility] Administration Insulin Detemir 20 units 11/24/19 07:00 11/25/19 06:06 Levemir Vial SQ 20 units DAILY@0700 [facility] Administration Ondansetron HCl 4 mg 11/20/19 09:19 Zofran Injection IVPUSH Q6H PRN NAUSEA AND/OR VOMITING Oxycodone HCl 10 mg 11/20/19 17:13 11/25/19 07:02 Roxicodone - PO 10 mg Q6H PRN Administration PAIN LEVEL 4 - 6 Polyethylene Glycol 17 gm 11/22/19 10:00 11/24/19 09:19 Miralax (For Daily Use) - PO 17 gm DAILY [facility] Administration Pregabalin 50 mg 11/20/19 10:00 11/25/19 09:28 Lyrica - PO 50 mg BID SHRUTHI Administration Rosuvastatin Calcium 20 mg 11/20/19 22:00 11/24/19 21:25 Crestor - PO 20 mg HS [facility] Administration Senna 2 tab 11/21/19 22:00 11/24/19 21:24 Senna - PO 2 tab HS [facility] Administration Tramadol HCl 50 mg 11/19/19 22:17 11/25/19 09:28 Ultram - PO 50 mg Q6H PRN Administration PAIN LEVEL 6-10 ASSESSMENT/PLAN: Problem List - Problems (1) Wound of foot Assessment/Plan: Left toe infection/diabetic wound s/p I&D on 11/20/19. wbc now within normal limits. remains afebrile. wound culture pos for mrsa and remains on isolation precautions. on vanco per ID-to complete a total of 6 weeks bone scan cancelled since patient had recent surgery, discussed with ID (dr goff) and length of antibiotics to be determined. patient may need tunneled catheter prior to d/c. wound care daily per surgery/podiatry bowel regimen, incentive spirometer, monitor wound, pain management. vascular consulted by podiatry Code(s): S91.309A - UNSPECIFIED OPEN WOUND, UNSPECIFIED FOOT, INITIAL ENCOUNTER (2) HTN (hypertension) Assessment/Plan: stable off meds, monitor Code(s): I10 - ESSENTIAL (PRIMARY) HYPERTENSION (3) HLD (hyperlipidemia) Assessment/Plan: on statin Code(s): E78.5 - HYPERLIPIDEMIA, UNSPECIFIED (4) Diabetes Assessment/Plan: improving. continue levemir to 20 in a.m, levemir 30 at hs. goal is achieve fasting glucose <150 will need endocrinology consult on d/c but patient resides in [place] Code(s): E11.9 - TYPE 2 DIABETES MELLITUS WITHOUT COMPLICATIONS Qualifiers: Diabetes mellitus type: other specified (including [place]) Diabetes mellitus senior living insulin use: unspecified child care nurse insulin use status Diabetes mellitus complication status: with other specified complication Qualified Code (s): E13.69 - Other specified diabetes mellitus with other specified complication (5) Prophylactic measure Assessment/Plan: fen tolerating po monitor vitals/labs full code heparin bid Code(s): Z29.9 - ENCOUNTER FOR PROPHYLACTIC MEASURES, UNSPECIFIED Visit type - Emergency Visit Emergency Visit: Yes ED Registration Date: 11/17/19 Care time: The patient presented to the Emergency Department on the above date and was hospitalized for further evaluation of their emergent condition. - New Patient This patient is new to me today: No - Critical Care Critical Care patient: No - Discharge Referral Referred to [facility] No
[2019-11-25] MEDS ORDERED: BISACODYL 10 MG SUPP.RECT RC ONE (11:02)
--- NOTE | 2019-11-25 11:19 | PN ---
Progress Note, Physician History of Present Illness: stable no new issues - Current Medication List Current Medications: Active Medications Acetaminophen (Tylenol -) 650 mg PO Q6H PRN PRN Reason: PAIN LEVEL 4 - 6 Last Admin: 11/25/19 07:02 Dose: 650 mg Bacitracin (Bacitracin -) 1 applic TP DAILY [facility] Last Admin: 11/24/19 09:17 Dose: 1 applic Docusate Sodium (Colace -) 100 mg PO TID [facility] Last Admin: 11/25/19 06:05 Dose: 100 mg Folic Acid (Folic Acid -) 1 mg PO DAILY [facility] Last Admin: 11/25/19 09:29 Dose: 1 mg Heparin Sodium (Porcine) (Heparin -) 5,000 unit SQ BID [facility] Last Admin: 11/25/19 09:29 Dose: 5,000 unit Vancomycin HCl (Vancomycin (Pre-Docked)) 1,000 mg in 250 mls @ 166.667 mls/hr IVPB Q12H [facility]; Protocol Last Admin: 11/24/19 23:58 Dose: 166.667 mls/hr Insulin Aspart (Novolog Vial Sliding Scale -) 1 vial SQ ACHS [facility]; Protocol Last Admin: 11/25/19 06:06 Dose: Not Given Insulin Detemir (Levemir Vial) 30 units SQ [facility] Last Admin: 11/24/19 21:25 Dose: 30 units Insulin Detemir (Levemir Vial) 20 units SQ DAILY@0700 [facility] Last Admin: 11/25/19 06:06 Dose: 20 units Ondansetron HCl (Zofran Injection) 4 mg IVPUSH Q6H PRN PRN Reason: NAUSEA AND/OR VOMITING Oxycodone HCl (Roxicodone -) 10 mg PO Q6H PRN PRN Reason: PAIN LEVEL 4 - 6 Last Admin: 11/25/19 07:02 Dose: 10 mg Polyethylene Glycol (Miralax (For Daily Use) -) 17 gm PO DAILY [facility] Last Admin: 11/24/19 09:19 Dose: 17 gm Pregabalin (Lyrica -) 50 mg PO BID [facility] Last Admin: 11/25/19 09:28 Dose: 50 mg Rosuvastatin Calcium (Crestor -) 20 mg PO [facility] Last Admin: 11/24/19 21:25 Dose: 20 mg Senna (Senna -) 2 tab PO [facility] Last Admin: 11/24/19 21:24 Dose: 2 tab Tramadol HCl (Ultram -) 50 mg PO Q6H PRN PRN Reason: PAIN LEVEL 6-10 Last Admin: 11/25/19 09:28 Dose: 50 mg - Objective Vital Signs: Vital Signs Temperature 97.9 F 11/25/19 09:51 Pulse Rate 61 11/25/19 09:51 Respiratory Rate 20 11/25/19 09:51 Blood Pressure 112/52 L 11/25/19 09:51 O2 Sat by Pulse Oximetry (%) 94 L 11/25/19 09:00 Constitutional: Yes: No Distress, Calm Cardiovascular: Yes: S1, S2 Respiratory: Yes: Regular, CTA Bilaterally Gastrointestinal: Yes: Normal Bowel Sounds, Soft Musculoskeletal: Yes: WNL Extremities: Yes: Other Wound/Incision: Yes: Dressing Dry and Intact Neurological: Yes: Alert, Oriented Psychiatric: Yes: Alert, Oriented Labs: CBC, BMP 11/25/19 06:45 11/25/19 06:45 INR, PTT INR 1.13 (0.83-1.09) H 11/20/19 06:10 Assessment/Plan Problem List - Problems (1) Diabetes Code(s): E11.9 - TYPE 2 DIABETES MELLITUS WITHOUT COMPLICATIONS Qualifiers: Diabetes mellitus type: other specified (including [place]) Diabetes mellitus skilled nursing insulin use: unspecified skilled nursing insulin use status Diabetes mellitus complication status: with other specified complication Qualified Code (s): E13.69 - Other specified diabetes mellitus with other specified complication (2) Wound of foot Code(s): S91.309A - UNSPECIFIED OPEN WOUND, UNSPECIFIED FOOT, INITIAL ENCOUNTER Assessment/Plan Lt toe abscess/paronychia r/o OM s/p drainage Uncontrolled DM Hx of Lung CA HTN HLD plan continue abx d/w podiatry vascular to see the patient rest as per the team
[2019-11-25] MEDS ORDERED: INSULIN (NOVOLOG) ASPART 100 UNITS/ML 10ML VIAL ONE (11:21)
[2019-11-25] MEDS: BACITRACIN 15 GM TUBE TOPICAL OINTMENT TP SCH (11:22)
[2019-11-25] MEDS: POLYETHYLENE GLYCOL 3350 119 GM BTL PO SCH (11:22)
[2019-11-25] MEDS: VANCOMYCIN 1 GRAM (PRE-DOCKED) 1,000 MG/250 ML BAG IVPB SCH (12:30)
[2019-11-25 13:45] LABS: ANISOCYTOSIS 1+; MACROCYTOSIS 0; PLATELET ESTIMATE NORMAL
[2019-11-25] MEDS: ROSUVASTATIN CA 20 MG TABLET (FP) PO SCH (21:37)
[2019-11-25] MEDS: SENNOSIDES 8.6MG TABLET (FP) PO SCH (21:37)
[2019-11-26] MEDS: traMADol HCL 50 MG TABLET PO PRN
[2019-11-26] MEDS: INSULIN (LEVEMIR) 100 UNITS/ML UNITS SQ SCH ×2 (06:35→21:26)
[2019-11-26] MEDS: DOCUSATE SODIUM 100 MG CAPSULE (FP) PO SCH ×3 (06:35→21:24)
[2019-11-26] MEDS ORDERED: INSULIN (NOVOLOG) ASPART 100 UNITS/ML 10ML VIAL ONE (06:38)
[2019-11-26] MEDS: INSULIN SLIDING SCALE (NOVOLOG) 1 VIAL SQ SCH ×4 (06:52→21:26)
[2019-11-26 07:21] LABS: BASO % 0.7 % (0-2.0); EOS % 2.5 % (0-4.5); HEMATOCRIT 36.4 % (32.4-45.2); LYMPH % 26.2 % (8-40); MCH 27.4 pg (25.7-33.7); MEAN CELL VOLUME 83.2 fl (80-96); MEAN PLT VOLUME 6.8 fl (7.5-11.1); MONO % 8.6 % (3.8-10.2); PLATELET COUNT 316 K/MM3 (134-434); RBC 4.37 M/mm3 (3.60-5.2); RDW 13.9 % (11.6-15.6); WHITE BLOOD COUNT 10.2 K/mm3 (4.0-10.0)
[2019-11-26 07:44] LABS: ALBUMIN 2.6 g/dl (3.4-5.0); BILIRUBIN,TOTAL 0.6 mg/dL (0.2-1); BLOOD UREA NITROGEN 14.8 mg/dL (7-18); CALCIUM 9.5 mg/dL (8.5-10.1); CREATININE 0.6 mg/dL (0.55-1.3); MAGNESIUM 2.1 mg/dL (1.8-2.4); POTASSIUM 4.3 mmol/L (3.5-5.1); TOT PROT 6.5 g/dl (6.4-8.2)
[2019-11-26] MEDS: oxyCODONE HCL 5 MG TABLET PO PRN ×2 (09:47→21:24)
[2019-11-26] MEDS: POLYETHYLENE GLYCOL 3350 119 GM BTL PO SCH (09:48)
[2019-11-26] MEDS: FOLIC ACID 1 MG TABLET (FP) PO SCH (09:48)
[2019-11-26] MEDS: HEPARIN NA (PORCINE) 5,000 UNITS/ML 1ML VIAL SQ SCH ×2 (09:48→21:24)
[2019-11-26] MEDS: BACITRACIN 15 GM TUBE TOPICAL OINTMENT TP SCH (09:48)
[2019-11-26] MEDS: ACETAMINOPHEN 325 MG TABLET (FP) PO PRN ×2 (09:48→21:25)
[2019-11-26] MEDS: PREGABALIN 50 MG CAPSULE PO SCH ×2 (09:48→21:24)
[2019-11-26 10:02] LABS: ANISOCYTOSIS 1+; MACROCYTOSIS 0; OVALOCYTE 1+; PLATELET ESTIMATE NORMAL
--- NOTE | 2019-11-26 10:30 | PN ---
Progress Note (short form) - Note Progress Note: Podiatry F/U: Seen/evaluated at bedside NAD. Pain is slowly improving, denies F/V/N/C/SOB/ CP. Afebrile, VSS. S/p left foot incision and drainage for severe DFI. Feeling much better. GAGE: L foot: pedal pulses 1/4, TG wnl, CFT brisk to all toes. There are no ischemic changes to the foot. Sutures well coapted, no dehiscence noted. There is no purulent drainage, no fluctuance, significant improvement in cellulitis, no soft tissue crepitus, no signs of acute infection. Moderate tenderness to palpation. Surrounding ecchymosis at the incision site unchanged. Nail bed with superficial eschar, no ulceration. OR Cx: MRSA Imp: 64 year old diabetic female s/p left foot incision and drainage for DFI 1. IV abx per ID 2. For PICC line 3. For SNF placement 4. Bactroban + DSD daily to left foot 5. Will f/u with me upon discharge 12/05/19 at [facility]. Genesis Yung DPM
--- NOTE | 2019-11-26 11:36 | PN ---
Physical Exam: SUBJECTIVE: Patient seen and examined at the bedside. 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 She denies any malaise. OBJECTIVE: Patient is a 64 year old female with a significant past medical history of HTN, HLD, PPM, Type II NIDDM, neuropathy, and breast cancer with lung mets (s/p left lower lobe lobectomy - currently in remission). Patient was admitted for left foot abscess, who is s/p abscess drainage on 11/17/2019 who then developed worsening erythema ascending up the foot onto the ankle. She is s/p I&D drainage of left foot wound on 11/20/2019. Discussed with ID, patient will need to complete 3 more days of IV antibiotics ( vancomycin) then can be discharged home with wound care follow up. Vital Signs Period Temp Pulse Resp BP Sys/Combs Pulse Ox Last 24 Hr 97.6 F-98.1 F 61-69 20-20 114-141/53-68 95-98 GENERAL: The patient is awake, alert, and fully oriented, in no acute distress. HEAD: Normal with no signs of trauma. EYES: PERRL, extraocular movements intact, sclera anicteric, conjunctiva clear. No ptosis. ENT: Ears normal, nares patent, oropharynx clear without exudates, moist mucous membranes. NECK: Trachea midline, full range of motion, supple. LUNGS: Breath sounds equal, clear to auscultation bilaterally, no wheezes, no crackles, no accessory muscle use. HEART: Regular rate and rhythm, S1, S2 without murmur, rub or gallop. ABDOMEN: Soft, nontender, nondistended, normoactive bowel sounds, no guarding, no rebound, no hepatosplenomegaly, no masses. EXTREMITIES: 2+ pulses, warm, well-perfused, no edema. NEUROLOGICAL: Cranial nerves II through XII grossly intact. Normal speech, gait not observed. PSYCH: Normal mood, normal affect. SKIN: Warm, dry, normal turgor, no rashes or lesions noted Laboratory Results - last 24 hr 11/25/19 11/25/19 11/25/19 06:45 12:15 16:09 WBC RBC Hgb Hct MCV MCH MCHC RDW Plt Count MPV Absolute Neuts (auto) Neutrophils % Neutrophils % (Manual) 50.5 Band Neutrophils % 5.8 Lymphocytes % Lymphocytes % (Manual) 30.1 D Monocytes % Monocytes % (Manual) 9 Eosinophils % Eosinophils % (Manual) 1.0 Basophils % Basophils % (Manual) 0.0 Myelocytes % (Man) 0 Promyelocytes % (Man) 0 Blast Cells % (Manual) 0 Nucleated RBC % 0 Metamyelocytes 1 Hypochromia 0 Platelet Estimate Normal Platelet Comment Polychromasia 1+ Poikilocytosis 1+ Anisocytosis 1+ Microcytosis 1+ Macrocytosis 0 Spherocytes 1+ Ovalocytes Sodium Potassium Chloride Carbon Dioxide Anion Gap BUN Creatinine Est GFR (CKD-EPI)AfAm Est GFR (CKD-EPI)NonAf POC Glucometer 126 Random Glucose Calcium Magnesium Total Bilirubin AST ALT Alkaline Phosphatase Total Protein Albumin Vancomycin Pre-Dose 14.0 L 11/25/19 11/26/19 11/26/19 21:33 05:42 06:30 WBC 10.2 H RBC 4.37 Hgb 12.0 Hct 36.4 MCV 83.2 MCH 27.4 MCHC 33.0 RDW 13.9 Plt Count 316 MPV 6.8 L Absolute Neuts (auto) 6.3 Neutrophils % 62.0 Neutrophils % (Manual) 61.5 Band Neutrophils % 5.8 Lymphocytes % 26.2 Lymphocytes % (Manual) 21.1 D Monocytes % 8.6 Monocytes % (Manual) 3 L Eosinophils % 2.5 Eosinophils % (Manual) 0.0 D Basophils % 0.7 Basophils % (Manual) 0.0 Myelocytes % (Man) 0 Promyelocytes % (Man) 0 Blast Cells % (Manual) 0 Nucleated RBC % 0 Metamyelocytes 1 Hypochromia 0 Platelet Estimate Normal Platelet Comment Present Polychromasia 0 Poikilocytosis 2+ Anisocytosis 1+ Microcytosis 1+ Macrocytosis 0 Spherocytes 1+ Ovalocytes 1+ Sodium Potassium Chloride Carbon Dioxide Anion Gap BUN Creatinine Est GFR (CKD-EPI)AfAm Est GFR (CKD-EPI)NonAf POC Glucometer 213 121 Random Glucose Calcium Magnesium Total Bilirubin AST ALT Alkaline Phosphatase Total Protein Albumin Vancomycin Pre-Dose 11/26/19 06:30 WBC RBC Hgb Hct MCV MCH MCHC RDW Plt Count MPV Absolute Neuts (auto) Neutrophils % Neutrophils % (Manual) Band Neutrophils % Lymphocytes % Lymphocytes % (Manual) Monocytes % Monocytes % (Manual) Eosinophils % Eosinophils % (Manual) Basophils % Basophils % (Manual) Myelocytes % (Man) Promyelocytes % (Man) Blast Cells % (Manual) Nucleated RBC % Metamyelocytes Hypochromia Platelet Estimate Platelet Comment Polychromasia Poikilocytosis Anisocytosis Microcytosis Macrocytosis Spherocytes Ovalocytes Sodium 135 L Potassium 4.3 Chloride 98 Carbon Dioxide 31 Anion Gap 6 L BUN 14.8 Creatinine 0.6 Est GFR (CKD-EPI)AfAm 112.43 Est GFR (CKD-EPI)NonAf 97.01 POC Glucometer Random Glucose 116 H Calcium 9.5 Magnesium 2.1 Total Bilirubin 0.6 AST 13 L ALT 15 Alkaline Phosphatase 96 Total Protein 6.5 Albumin 2.6 L Vancomycin Pre-Dose Active Medications Generic Name Dose Route Start Last Admin Trade Name Freq PRN Reason Stop Dose Admin Acetaminophen 650 mg 11/20/19 17:13 11/26/19 09:48 Tylenol - PO 650 mg Q6H PRN Administration PAIN LEVEL 4 - 6 Docusate Sodium 100 mg 11/21/19 22:00 11/26/19 06:35 Colace - PO 100 mg TID SHRUTHI Administration Folic Acid 1 mg 11/20/19 10:00 11/26/19 09:48 Folic Acid - PO 1 mg DAILY [facility] Administration Heparin Sodium (Porcine) 5,000 unit 11/20/19 22:00 11/26/19 09:48 Heparin - SQ 5,000 unit BID [facility] Administration Vancomycin HCl 1,000 mg in 250 mls @ 166.667 mls/hr 11/20/19 00:00 11/26/19 00:00 Vancomycin (Pre-Docked) IVPB 166.667 mls/hr Q12H [facility] Administration Protocol Insulin Aspart 1 vial 11/23/19 16:26 11/26/19 06:52 Novolog Vial Sliding Scale - SQ Not Given ACHS [facility] Protocol Insulin Detemir 30 units 11/22/19 22:00 11/25/19 21:37 Levemir Vial SQ 30 units HS [facility] Administration Insulin Detemir 20 units 11/24/19 07:00 11/26/19 06:35 Levemir Vial SQ 20 units DAILY@0700 [facility] Administration Mupirocin 1 applic 11/27/19 10:00 Bactroban 2% Ointment - TP DAILY [facility] Ondansetron HCl 4 mg 11/20/19 09:19 Zofran Injection IVPUSH Q6H PRN NAUSEA AND/OR VOMITING Oxycodone HCl 10 mg 11/20/19 17:13 11/26/19 09:47 Roxicodone - PO 10 mg Q6H PRN Administration PAIN LEVEL 4 - 6 Polyethylene Glycol 17 gm 11/22/19 10:00 11/26/19 09:48 Miralax (For Daily Use) - PO 17 gm DAILY [facility] Administration Pregabalin 50 mg 11/20/19 10:00 11/26/19 09:48 Lyrica - PO 50 mg BID [facility] Administration Rosuvastatin Calcium 20 mg 11/20/19 22:00 11/25/19 21:37 Crestor - PO 20 mg HS [facility] Administration Senna 2 tab 11/21/19 22:00 11/25/19 21:37 Senna - PO 2 tab HS [facility] Administration Tramadol HCl 50 mg 11/19/19 22:17 11/26/19 00:00 Ultram - PO 50 mg Q6H PRN Administration PAIN LEVEL 6-10 ASSESSMENT/PLAN: Problem List - Problems (1) Wound of foot Assessment/Plan: Left toe infection/diabetic wound s/p I&D on 11/20/19. wbc now within normal limits. remains afebrile. wound culture pos for mrsa and remains on isolation precautions. on vanco per ID per ID, patient will complete complete Vancomycin, 3 more days. will not need a tunneled catheter. bowel regimen, incentive spirometer, monitor wound, pain management. vascular consulted by podiatry Code(s): S91.309A - UNSPECIFIED OPEN WOUND, UNSPECIFIED FOOT, INITIAL ENCOUNTER (2) HTN (hypertension) Assessment/Plan: stable off meds, monitor Code(s): I10 - ESSENTIAL (PRIMARY) HYPERTENSION (3) HLD (hyperlipidemia) Assessment/Plan: on statin Code(s): E78.5 - HYPERLIPIDEMIA, UNSPECIFIED (4) Diabetes Assessment/Plan: improving. continue levemir to 20 in a.m, levemir 30 at hs. goal is achieve fasting glucose <150 will need endocrinology consult on d/c but patient resides in [place] Code(s): E11.9 - TYPE 2 DIABETES MELLITUS WITHOUT COMPLICATIONS Qualifiers: Diabetes mellitus type: other specified (including [place]) Diabetes mellitus [facility] insulin use: unspecified [facility] insulin use status Diabetes mellitus complication status: with other specified complication Qualified Code (s): E13.69 - Other specified diabetes mellitus with other specified complication (5) Prophylactic measure Assessment/Plan: fen tolerating po monitor vitals/labs full code heparin bid Code(s): Z29.9 - ENCOUNTER FOR PROPHYLACTIC MEASURES, UNSPECIFIED Visit type - Emergency Visit Emergency Visit: Yes ED Registration Date: 11/17/19 Care time: The patient presented to the Emergency Department on the above date and was hospitalized for further evaluation of their emergent condition. - New Patient This patient is new to me today: No - Critical Care Critical Care patient: No - Discharge Referral Referred to [facility] No
--- NOTE | 2019-11-26 12:02 | PN ---
Progress Note, Physician History of Present Illness: stable no new issues - Current Medication List Current Medications: Active Medications Acetaminophen (Tylenol -) 650 mg PO Q6H PRN PRN Reason: PAIN LEVEL 4 - 6 Last Admin: 11/26/19 09:48 Dose: 650 mg Docusate Sodium (Colace -) 100 mg PO TID [facility] Last Admin: 11/26/19 06:35 Dose: 100 mg Folic Acid (Folic Acid -) 1 mg PO DAILY [facility] Last Admin: 11/26/19 09:48 Dose: 1 mg Heparin Sodium (Porcine) (Heparin -) 5,000 unit SQ BID [facility] Last Admin: 11/26/19 09:48 Dose: 5,000 unit Vancomycin HCl (Vancomycin (Pre-Docked)) 1,000 mg in 250 mls @ 166.667 mls/hr IVPB Q12H [facility]; Protocol Last Admin: 11/26/19 00:00 Dose: 166.667 mls/hr Insulin Aspart (Novolog Vial Sliding Scale -) 1 vial SQ ACHS [facility]; Protocol Last Admin: 11/26/19 11:44 Dose: 6 units Insulin Detemir (Levemir Vial) 30 units SQ [facility] Last Admin: 11/25/19 21:37 Dose: 30 units Insulin Detemir (Levemir Vial) 20 units SQ DAILY@0700 [facility] Last Admin: 11/26/19 06:35 Dose: 20 units Mupirocin (Bactroban 2% Ointment -) 1 applic TP DAILY [facility] Ondansetron HCl (Zofran Injection) 4 mg IVPUSH Q6H PRN PRN Reason: NAUSEA AND/OR VOMITING Oxycodone HCl (Roxicodone -) 10 mg PO Q6H PRN PRN Reason: PAIN LEVEL 4 - 6 Last Admin: 11/26/19 09:47 Dose: 10 mg Polyethylene Glycol (Miralax (For Daily Use) -) 17 gm PO DAILY [facility] Last Admin: 11/26/19 09:48 Dose: 17 gm Pregabalin (Lyrica -) 50 mg PO BID [facility] Last Admin: 11/26/19 09:48 Dose: 50 mg Rosuvastatin Calcium (Crestor -) 20 mg PO [facility] Last Admin: 11/25/19 21:37 Dose: 20 mg Senna (Senna -) 2 tab PO [facility] Last Admin: 11/25/19 21:37 Dose: 2 tab Tramadol HCl (Ultram -) 50 mg PO Q6H PRN PRN Reason: PAIN LEVEL 6-10 Last Admin: 11/26/19 00:00 Dose: 50 mg - Objective Vital Signs: Vital Signs Temperature 97.9 F 11/26/19 10:00 Pulse Rate 61 11/26/19 10:00 Respiratory Rate 20 11/26/19 10:00 Blood Pressure 122/53 L 11/26/19 10:00 O2 Sat by Pulse Oximetry (%) 98 11/26/19 09:00 Constitutional: Yes: No Distress, Calm Cardiovascular: Yes: S1, S2 Respiratory: Yes: Regular, CTA Bilaterally Gastrointestinal: Yes: Normal Bowel Sounds, Soft Musculoskeletal: Yes: WNL Extremities: Yes: Other Wound/Incision: Yes: Dressing Dry and Intact Neurological: Yes: Alert, Oriented Psychiatric: Yes: Alert, Oriented Labs: CBC, BMP 11/26/19 06:30 11/26/19 06:30 INR, PTT INR 1.13 (0.83-1.09) H 11/20/19 06:10 Assessment/Plan Problem List - Problems (1) Diabetes Code(s): E11.9 - TYPE 2 DIABETES MELLITUS WITHOUT COMPLICATIONS Qualifiers: Diabetes mellitus type: other specified (including MILTON) Diabetes mellitus superintendent container terminal insulin use: unspecified superintendent container terminal insulin use status Diabetes mellitus complication status: with other specified complication Qualified Code (s): E13.69 - Other specified diabetes mellitus with other specified complication (2) Wound of foot Code(s): S91.309A - UNSPECIFIED OPEN WOUND, UNSPECIFIED FOOT, INITIAL ENCOUNTER Assessment/Plan Lt toe abscess/paronychia r/o OM s/p drainage Uncontrolled DM Hx of Lung CA HTN HLD plan continue abx d/w podiatry will give abx for another 3 more days wound care
[2019-11-26] MEDS: VANCOMYCIN 1 GRAM (PRE-DOCKED) 1,000 MG/250 ML BAG IVPB SCH ×2 (12:29)
[2019-11-26] MEDS ORDERED: PT OWN MED DRAWER 7, Y5N ONE (18:02)
[2019-11-26] MEDS: SENNOSIDES 8.6MG TABLET (FP) PO SCH (21:24)
[2019-11-26] MEDS: ROSUVASTATIN CA 20 MG TABLET (FP) PO SCH (21:24)
[2019-11-27] MEDS: VANCOMYCIN 1 GRAM (PRE-DOCKED) 1,000 MG/250 ML BAG IVPB SCH ×2 (00:02→11:30)
[2019-11-27] MEDS: INSULIN (LEVEMIR) 100 UNITS/ML UNITS SQ SCH ×2 (06:02→22:08)
[2019-11-27] MEDS: DOCUSATE SODIUM 100 MG CAPSULE (FP) PO SCH ×3 (06:02→22:07)
[2019-11-27] MEDS: INSULIN SLIDING SCALE (NOVOLOG) 1 VIAL SQ SCH ×4 (06:02→22:09)
--- NOTE | 2019-11-27 07:51 | PN ---
Progress Note, Physician Chief Complaint: Minimal pain in foot. Awaiting completion of abx and then dc to SNF History of Present Illness: Patient is a 64 year old female with a significant past medical history of HTN, HLD, PPM, Type II NIDDM, neuropathy, and breast cancer with lung mets (s/p left lower lobe lobectomy - currently in remission). Patient was admitted for left foot abscess, who is s/p abscess drainage on 11/17/2019 who then developed worsening erythema ascending up the foot onto the ankle. She is s/p I&D drainage of left foot wound on 11/20/2019. - Current Medication List Current Medications: Active Medications Acetaminophen (Tylenol -) 650 mg PO Q6H PRN PRN Reason: PAIN LEVEL 4 - 6 Last Admin: 11/26/19 21:25 Dose: 650 mg Docusate Sodium (Colace -) 100 mg PO TID [facility] Last Admin: 11/27/19 06:02 Dose: 100 mg Folic Acid (Folic Acid -) 1 mg PO DAILY [facility] Last Admin: 11/26/19 09:48 Dose: 1 mg Heparin Sodium (Porcine) (Heparin -) 5,000 unit SQ BID [facility] Last Admin: 11/26/19 21:24 Dose: 5,000 unit Vancomycin HCl (Vancomycin (Pre-Docked)) 1,000 mg in 250 mls @ 166.667 mls/hr IVPB Q12H [facility]; Protocol Last Admin: 11/27/19 00:02 Dose: 166.667 mls/hr Insulin Aspart (Novolog Vial Sliding Scale -) 1 vial SQ ACHS [facility]; Protocol Last Admin: 11/27/19 06:02 Dose: Not Given Insulin Detemir (Levemir Vial) 30 units SQ HS [facility] Last Admin: 11/26/19 21:26 Dose: 30 units Insulin Detemir (Levemir Vial) 20 units SQ DAILY@0700 [facility] Last Admin: 11/27/19 06:02 Dose: 20 units Mupirocin (Bactroban 2% Ointment -) 1 applic TP DAILY [facility] Ondansetron HCl (Zofran Injection) 4 mg IVPUSH Q6H PRN PRN Reason: NAUSEA AND/OR VOMITING Oxycodone HCl (Roxicodone -) 10 mg PO Q6H PRN PRN Reason: PAIN LEVEL 4 - 6 Last Admin: 11/26/19 21:24 Dose: 10 mg Polyethylene Glycol (Miralax (For Daily Use) -) 17 gm PO DAILY [facility] Last Admin: 11/26/19 09:48 Dose: 17 gm Pregabalin (Lyrica -) 50 mg PO BID [facility] Last Admin: 11/26/19 21:24 Dose: 50 mg Rosuvastatin Calcium (Crestor -) 20 mg PO [facility] Last Admin: 11/26/19 21:24 Dose: 20 mg Senna (Senna -) 2 tab PO [facility] Last Admin: 11/26/19 21:24 Dose: 2 tab Tramadol HCl (Ultram -) 50 mg PO Q6H PRN PRN Reason: PAIN LEVEL 6-10 Last Admin: 11/26/19 00:00 Dose: 50 mg - Objective Vital Signs: Vital Signs Temperature 97.9 F 11/27/19 05:08 Pulse Rate 65 11/27/19 05:08 Respiratory Rate 20 11/27/19 05:08 Blood Pressure 115/48 L 11/27/19 05:08 O2 Sat by Pulse Oximetry (%) 98 11/26/19 21:00 Constitutional: Yes: Well Nourished, No Distress, Calm Eyes: Yes: WNL, Conjunctiva Clear HENT: Yes: WNL, Atraumatic, Normocephalic Neck: Yes: WNL, Supple, Trachea Midline Cardiovascular: Yes: WNL, Regular Rate and Rhythm Respiratory: Yes: WNL, Regular, CTA Bilaterally Gastrointestinal: Yes: WNL, Normal Bowel Sounds ...Rectal Exam: Yes: Deferred Genitourinary: Yes: WNL Breast(s): Yes: WNL Musculoskeletal: Yes: WNL Extremities: Yes: Other (wound to left toe) Edema: No Peripheral Pulses WNL: Yes Peripheral Pulses: Left Radial: 2+, Right Radial: 2+, Left Doralis Pedis: 0 ( dressing in place), Right Dorsalis Pedis: 2+, Left Femoral: 2+, Right Femoral: 2 + Integumentary: Yes: WNL Wound/Incision: Yes: Dressing Dry and Intact Neurological: Yes: WNL, Alert, Oriented ...Motor Strength: WNL Psychiatric: Yes: WNL Labs: CBC, BMP 11/26/19 06:30 11/26/19 06:30 INR, PTT INR 1.13 (0.83-1.09) H 11/20/19 06:10 Problem List - Problems (1) Diabetes Assessment/Plan: BGM AC/HS with novoolog sliding scale c/w levemir 20u in am, 30u in pm diabetic diet f/u with endocrinology in [place] on DC Code(s): E11.9 - TYPE 2 DIABETES MELLITUS WITHOUT COMPLICATIONS Qualifiers: Diabetes mellitus type: other specified (including MILTON) Diabetes mellitus long-term insulin use: unspecified terminal block assembler insulin use status Diabetes mellitus complication status: with other specified complication Qualified Code (s): E13.69 - Other specified diabetes mellitus with other specified complication (2) HLD (hyperlipidemia) Assessment/Plan: c/w crestor low cholesterol diet Code(s): E78.5 - HYPERLIPIDEMIA, UNSPECIFIED (3) HTN (hypertension) Assessment/Plan: BP controlled off meds will assess for continuation of lisinipril on dc home Code(s): I10 - ESSENTIAL (PRIMARY) HYPERTENSION (4) Prophylactic measure Assessment/Plan: FEN Fluids: adequate PO intake Electrolytes: replete as indicated Nutrition: diabetic diet DVT prophylaxis: heparin sq oob, ambulation Dispo: continues to require inpatient care. Full code discharge planning to SNF Code(s): Z29.9 - ENCOUNTER FOR PROPHYLACTIC MEASURES, UNSPECIFIED (5) Wound of foot Assessment/Plan: Left toe infection/diabetic wound s/p I&D on 11/20/19. wound cx with MRSA completion of vanco IV on wed vascular/podiatry following Code(s): S91.309A - UNSPECIFIED OPEN WOUND, UNSPECIFIED FOOT, INITIAL ENCOUNTER Visit type - Emergency Visit Emergency Visit: Yes ED Registration Date: 11/17/19 Care time: The patient presented to the Emergency Department on the above date and was hospitalized for further evaluation of their emergent condition. - New Patient This patient is new to me today: Yes Date on this admission: 11/27/19 - Critical Care Critical Care patient: No - Discharge Referral Referred to [facility] Med P.C.: No
[2019-11-27] MEDS: oxyCODONE HCL 5 MG TABLET PO PRN ×2 (07:59→22:07)
[2019-11-27] MEDS: ACETAMINOPHEN 325 MG TABLET (FP) PO PRN ×2 (08:00→22:06)
[2019-11-27 08:02] LABS: BASO % 0.4 % (0-2.0); EOS % 2.3 % (0-4.5); HEMATOCRIT 35.6 % (32.4-45.2); HEMOGLOBIN 11.8 GM/dL (10.7-15.3); LYMPH % 28.7 % (8-40); MCH 27.1 pg (25.7-33.7); MCHC 33.1 g/dl (32.0-36.0); MEAN CELL VOLUME 82.1 fl (80-96); MEAN PLT VOLUME 6.7 fl (7.5-11.1); MONO % 7.8 % (3.8-10.2); NEUT % 60.8 % (42.8-82.8); PLATELET COUNT 348 K/MM3 (134-434); RBC 4.34 M/mm3 (3.60-5.2); RDW 14.3 % (11.6-15.6); WHITE BLOOD COUNT 9.5 K/mm3 (4.0-10.0)
[2019-11-27 08:30] LABS: ALBUMIN 2.6 g/dl (3.4-5.0); BILIRUBIN,TOTAL 0.6 mg/dL (0.2-1); BLOOD UREA NITROGEN 15.6 mg/dL (7-18); CALCIUM 9.6 mg/dL (8.5-10.1); CREATININE 0.7 mg/dL (0.55-1.3); MAGNESIUM 2.2 mg/dL (1.8-2.4); POTASSIUM 4.6 mmol/L (3.5-5.1); TOT PROT 6.6 g/dl (6.4-8.2)
[2019-11-27] MEDS: FOLIC ACID 1 MG TABLET (FP) PO SCH (10:11)
[2019-11-27] MEDS: HEPARIN NA (PORCINE) 5,000 UNITS/ML 1ML VIAL SQ SCH ×2 (10:11→22:08)
[2019-11-27] MEDS: PREGABALIN 50 MG CAPSULE PO SCH ×2 (10:11→22:07)
[2019-11-27] MEDS: POLYETHYLENE GLYCOL 3350 119 GM BTL PO SCH (10:16)
[2019-11-27] MEDS ORDERED: PT OWN MED DRAWER 7, Y5N ONE (10:17)
--- NOTE | 2019-11-27 11:18 | PN ---
Progress Note, Physician History of Present Illness: stable no new issues - Current Medication List Current Medications: Active Medications Acetaminophen (Tylenol -) 650 mg PO Q6H PRN PRN Reason: PAIN LEVEL 4 - 6 Last Admin: 11/27/19 08:00 Dose: 650 mg Docusate Sodium (Colace -) 100 mg PO TID [facility] Last Admin: 11/27/19 06:02 Dose: 100 mg Folic Acid (Folic Acid -) 1 mg PO DAILY [facility] Last Admin: 11/27/19 10:11 Dose: 1 mg Heparin Sodium (Porcine) (Heparin -) 5,000 unit SQ BID [facility] Last Admin: 11/27/19 10:11 Dose: 5,000 unit Vancomycin HCl (Vancomycin (Pre-Docked)) 1,000 mg in 250 mls @ 166.667 mls/hr IVPB Q12H [facility]; Protocol Last Admin: 11/27/19 00:02 Dose: 166.667 mls/hr Insulin Aspart (Novolog Vial Sliding Scale -) 1 vial SQ ACHS [facility]; Protocol Last Admin: 11/27/19 06:02 Dose: Not Given Insulin Detemir (Levemir Vial) 30 units SQ [facility] Last Admin: 11/26/19 21:26 Dose: 30 units Insulin Detemir (Levemir Vial) 20 units SQ DAILY@0700 [facility] Last Admin: 11/27/19 06:02 Dose: 20 units Mupirocin (Bactroban 2% Ointment -) 1 applic TP DAILY [facility] Ondansetron HCl (Zofran Injection) 4 mg IVPUSH Q6H PRN PRN Reason: NAUSEA AND/OR VOMITING Oxycodone HCl (Roxicodone -) 10 mg PO Q6H PRN PRN Reason: PAIN LEVEL 4 - 6 Last Admin: 11/27/19 07:59 Dose: 10 mg Polyethylene Glycol (Miralax (For Daily Use) -) 17 gm PO DAILY [facility] Last Admin: 11/27/19 10:16 Dose: 17 gm Pregabalin (Lyrica -) 50 mg PO BID [facility] Last Admin: 11/27/19 10:11 Dose: 50 mg Rosuvastatin Calcium (Crestor -) 20 mg PO [facility] Last Admin: 11/26/19 21:24 Dose: 20 mg Senna (Senna -) 2 tab PO [facility] Last Admin: 11/26/19 21:24 Dose: 2 tab Tramadol HCl (Ultram -) 50 mg PO Q6H PRN PRN Reason: PAIN LEVEL 6-10 Last Admin: 11/26/19 00:00 Dose: 50 mg - Objective Vital Signs: Vital Signs Temperature 97.9 F 11/27/19 07:56 Pulse Rate 65 11/27/19 07:56 Respiratory Rate 15 11/27/19 07:56 Blood Pressure 118/88 11/27/19 07:56 O2 Sat by Pulse Oximetry (%) 98 11/27/19 09:00 Constitutional: Yes: No Distress, Calm Cardiovascular: Yes: S1, S2 Respiratory: Yes: Regular, CTA Bilaterally Gastrointestinal: Yes: Normal Bowel Sounds, Soft Musculoskeletal: Yes: WNL Extremities: Yes: Other Wound/Incision: Yes: Dressing Dry and Intact Neurological: Yes: Alert, Oriented Psychiatric: Yes: Alert, Oriented Labs: CBC, BMP 11/27/19 07:15 11/27/19 07:15 INR, PTT INR 1.13 (0.83-1.09) H 11/20/19 06:10 Assessment/Plan Problem List - Problems (1) Diabetes Code(s): E11.9 - TYPE 2 DIABETES MELLITUS WITHOUT COMPLICATIONS Qualifiers: Diabetes mellitus type: other specified (including MILTON) 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
[2019-11-27] MEDS ORDERED: INSULIN (NOVOLOG) ASPART 100 UNITS/ML 10ML VIAL ONE (11:25)
[2019-11-27] MEDS: MUPIROCIN 2% TOPICAL OINTMENT 22 GM TUBE TP SCH (11:28)
[2019-11-27 14:39] LABS: ANISOCYTOSIS 1+; MACROCYTOSIS 0; OVALOCYTE 1+; PLATELET ESTIMATE NORMAL; TEAR DROP CELLS 1+
[2019-11-27] MEDS: ROSUVASTATIN CA 20 MG TABLET (FP) PO SCH (22:07)
[2019-11-27] MEDS: SENNOSIDES 8.6MG TABLET (FP) PO SCH (22:08)
[2019-11-28] MEDS: VANCOMYCIN 1 GRAM (PRE-DOCKED) 1,000 MG/250 ML BAG IVPB SCH ×2 (01:10→11:12)
[2019-11-28] MEDS: ACETAMINOPHEN 325 MG TABLET (FP) PO PRN ×3 (06:04→22:23)
[2019-11-28] MEDS: oxyCODONE HCL 5 MG TABLET PO PRN ×3 (06:04→22:24)
[2019-11-28] MEDS: DOCUSATE SODIUM 100 MG CAPSULE (FP) PO SCH ×3 (06:04→22:24)
[2019-11-28] MEDS: INSULIN (LEVEMIR) 100 UNITS/ML UNITS SQ SCH ×2 (06:04→22:24)
[2019-11-28] MEDS: INSULIN SLIDING SCALE (NOVOLOG) 1 VIAL SQ SCH ×4 (06:08→22:32)
[2019-11-28] MEDS ORDERED: INSULIN (LEVEMIR) 100 UNITS/ML UNITS SQ ONE (06:35)
[2019-11-28 08:02] LABS: BASO % 0.6 % (0-2.0); EOS % 1.9 % (0-4.5); HEMATOCRIT 34.3 % (32.4-45.2); HEMOGLOBIN 11.5 GM/dL (10.7-15.3); LYMPH % 30.7 % (8-40); MCH 27.4 pg (25.7-33.7); MCHC 33.4 g/dl (32.0-36.0); MEAN CELL VOLUME 82.2 fl (80-96); MEAN PLT VOLUME 6.7 fl (7.5-11.1); MONO % 7.3 % (3.8-10.2); NEUT % 59.5 % (42.8-82.8); PLATELET COUNT 349 K/MM3 (134-434); RBC 4.18 M/mm3 (3.60-5.2); RDW 14.2 % (11.6-15.6); WHITE BLOOD COUNT 9.2 K/mm3 (4.0-10.0)
[2019-11-28 08:23] LABS: ALBUMIN 2.6 g/dl (3.4-5.0); BLOOD UREA NITROGEN 14.6 mg/dL (7-18); CALCIUM 9.7 mg/dL (8.5-10.1); CREATININE 0.6 mg/dL (0.55-1.3); MAGNESIUM 2.1 mg/dL (1.8-2.4); POTASSIUM 4.3 mmol/L (3.5-5.1); TOT PROT 6.7 g/dl (6.4-8.2)
[2019-11-28] MEDS: POLYETHYLENE GLYCOL 3350 119 GM BTL PO SCH (10:06)
[2019-11-28] MEDS: FOLIC ACID 1 MG TABLET (FP) PO SCH (10:06)
[2019-11-28] MEDS: PREGABALIN 50 MG CAPSULE PO SCH ×2 (10:06→22:24)
[2019-11-28] MEDS: HEPARIN NA (PORCINE) 5,000 UNITS/ML 1ML VIAL SQ SCH ×2 (10:06→22:24)
[2019-11-28] MEDS: MUPIROCIN 2% TOPICAL OINTMENT 22 GM TUBE TP SCH (10:07)
[2019-11-28 11:26] LABS: ANISOCYTOSIS 0; MACROCYTOSIS 0; PLATELET ESTIMATE NORMAL
--- NOTE | 2019-11-28 11:41 | PN ---
Physical Exam: SUBJECTIVE: Patient seen and examined at the bedside. sitting up in chair, feels well. OBJECTIVE: Patient is a 64 year old female with a significant past medical history of HTN, HLD, PPM, Type II NIDDM, neuropathy, and breast cancer with lung mets (s/p left lower lobe lobectomy - currently in remission). Patient was admitted for left foot abscess, who is s/p abscess drainage on 11/17/2019 who then developed worsening erythema ascending up the foot onto the ankle. She is s/p I&D drainage of left foot wound on 11/20/2019. Patient will complete the IV vancomycin antibiotics on 11/29/2019 and can be discharged to rehab without any further antibiotics. Vital Signs Period Temp Pulse Resp BP Sys/Combs Pulse Ox Last 24 Hr 97.9 F-98.9 F 61-70 18-19 108-148/53-75 98-98 GENERAL: The patient is awake, alert, and fully oriented, in no acute distress. HEAD: Normal with no signs of trauma. EYES: PERRL, extraocular movements intact, sclera anicteric, conjunctiva clear. No ptosis. ENT: Ears normal, nares patent, oropharynx clear without exudates, moist mucous membranes. NECK: Trachea midline, full range of motion, supple. LUNGS: Breath sounds equal, clear to auscultation bilaterally, no wheezes, no crackles, no accessory muscle use. HEART: Regular rate and rhythm, S1, S2 without murmur, rub or gallop. ABDOMEN: Soft, nontender, nondistended, normoactive bowel sounds, no guarding, no rebound, no hepatosplenomegaly, no masses. EXTREMITIES: left foot bandaged, s/p i&d NEUROLOGICAL: Cranial nerves II through XII grossly intact. Normal speech, gait not observed. PSYCH: Normal mood, normal affect. Laboratory Results - last 24 hr 11/27/19 11/27/19 11/27/19 07:15 16:15 22:05 WBC RBC Hgb Hct MCV MCH MCHC RDW Plt Count MPV Absolute Neuts (auto) Neutrophils % Neutrophils % (Manual) 57.8 Band Neutrophils % 9.8 Lymphocytes % Lymphocytes % (Manual) 20.6 Monocytes % Monocytes % (Manual) 6 D Eosinophils % Eosinophils % (Manual) 1.0 D Basophils % Basophils % (Manual) 1.0 D Myelocytes % (Man) 0 Promyelocytes % (Man) 0 Blast Cells % (Manual) 0 Nucleated RBC % 2 H Metamyelocytes 1 Hypochromia 0 Platelet Estimate Normal Platelet Comment Present Polychromasia 1+ Poikilocytosis 1+ Anisocytosis 1+ Microcytosis 1+ Macrocytosis 0 Spherocytes 1+ Tear Drop Cells 1+ Ovalocytes 1+ Sodium Potassium Chloride Carbon Dioxide Anion Gap BUN Creatinine Est GFR (CKD-EPI)AfAm Est GFR (CKD-EPI)NonAf POC Glucometer 203 194 Random Glucose Calcium Magnesium Total Bilirubin AST ALT Alkaline Phosphatase Total Protein Albumin 11/28/19 11/28/19 11/28/19 06:08 07:05 07:05 WBC 9.2 RBC 4.18 Hgb 11.5 Hct 34.3 MCV 82.2 MCH 27.4 MCHC 33.4 RDW 14.2 Plt Count 349 MPV 6.7 L Absolute Neuts (auto) 5.5 Neutrophils % 59.5 Neutrophils % (Manual) 67.0 Band Neutrophils % 0.0 Lymphocytes % 30.7 Lymphocytes % (Manual) 26.2 D Monocytes % 7.3 Monocytes % (Manual) 3 L Eosinophils % 1.9 Eosinophils % (Manual) 1.0 Basophils % 0.6 Basophils % (Manual) 0.0 Myelocytes % (Man) 0 Promyelocytes % (Man) 0 Blast Cells % (Manual) 0 Nucleated RBC % 0 Metamyelocytes 2 D Hypochromia 0 Platelet Estimate Normal Platelet Comment Polychromasia 0 Poikilocytosis Anisocytosis 0 Microcytosis 0 Macrocytosis 0 Spherocytes Tear Drop Cells Ovalocytes Sodium 136 Potassium 4.3 Chloride 100 Carbon Dioxide 30 Anion Gap 7 L BUN 14.6 Creatinine 0.6 Est GFR (CKD-EPI)AfAm 112.43 Est GFR (CKD-EPI)NonAf 97.01 POC Glucometer 146 Random Glucose 138 H Calcium 9.7 Magnesium 2.1 Total Bilirubin 1.0 AST 12 L ALT 14 Alkaline Phosphatase 92 Total Protein 6.7 Albumin 2.6 L Active Medications Generic Name Dose Route Start Last Admin Trade Name Freq PRN Reason Stop Dose Admin Acetaminophen 650 mg 11/20/19 17:13 11/28/19 11:13 Tylenol - PO 650 mg Q6H PRN Administration PAIN LEVEL 4 - 6 Docusate Sodium 100 mg 11/21/19 22:00 11/28/19 06:04 Colace - PO 100 mg TID [facility] Administration Folic Acid 1 mg 11/20/19 10:00 11/28/19 10:06 Folic Acid - PO 1 mg DAILY [facility] Administration Heparin Sodium (Porcine) 5,000 unit 11/20/19 22:00 11/28/19 10:06 Heparin - SQ 5,000 unit BID [facility] Administration Vancomycin HCl 1,000 mg in 250 mls @ 166.667 mls/hr 11/20/19 00:00 11/28/19 11:12 Vancomycin (Pre-Docked) IVPB 166.667 mls/hr Q12H [facility] Administration Protocol Insulin Aspart 1 vial 11/23/19 16:26 11/28/19 11:12 Novolog Vial Sliding Scale - SQ 10 units ACHS [facility] Administration Protocol Insulin Detemir 30 units 11/22/19 22:00 11/27/19 22:08 Levemir Vial SQ 30 units HS [facility] Administration Insulin Detemir 20 units 11/24/19 07:00 11/28/19 06:04 Levemir Vial SQ 20 units DAILY@0700 [facility] Administration Mupirocin 1 applic 11/27/19 10:00 11/28/19 10:07 Bactroban 2% Ointment - TP 1 applic DAILY [facility] Administration Ondansetron HCl 4 mg 11/20/19 09:19 Zofran Injection IVPUSH Q6H PRN NAUSEA AND/OR VOMITING Oxycodone HCl 10 mg 11/20/19 17:13 11/28/19 11:13 Roxicodone - PO 10 mg Q6H PRN Administration PAIN LEVEL 4 - 6 Polyethylene Glycol 17 gm 11/22/19 10:00 11/28/19 10:06 Miralax (For Daily Use) - PO 17 gm DAILY [facility] Administration Pregabalin 50 mg 11/20/19 10:00 11/28/19 10:06 Lyrica - PO 50 mg BID [facility] Administration Rosuvastatin Calcium 20 mg 11/20/19 22:00 11/27/19 22:07 Crestor - PO 20 mg HS [facility] Administration Senna 2 tab 11/21/19 22:00 11/27/19 22:08 Senna - PO 2 tab HS [facility] Administration Tramadol HCl 50 mg 11/19/19 22:17 11/26/19 00:00 Ultram - PO 50 mg Q6H PRN Administration PAIN LEVEL 6-10 ASSESSMENT/PLAN: Problem List - Problems (1) Wound of foot Assessment/Plan: Left toe infection/diabetic wound s/p I&D on 11/20/19. wbc now within normal limits. remains afebrile. wound culture pos for mrsa and remains on isolation precautions. on vanco per ID per ID, patient will complete complete Vancomycin on 11/29/19 and then can be discharged to SNF pending auth. bowel regimen, incentive spirometer, monitor wound, pain management. vascular consulted by podiatry Code(s): S91.309A - UNSPECIFIED OPEN WOUND, UNSPECIFIED FOOT, INITIAL ENCOUNTER (2) HTN (hypertension) Assessment/Plan: stable off meds, monitor Code(s): I10 - ESSENTIAL (PRIMARY) HYPERTENSION (3) HLD (hyperlipidemia) Assessment/Plan: on statin Code(s): E78.5 - HYPERLIPIDEMIA, UNSPECIFIED (4) Diabetes Assessment/Plan: improving. continue levemir to 20 in a.m, levemir 30 at hs. goal is achieve fasting glucose <150 will need endocrinology consult on d/c but patient resides in [place] Code(s): E11.9 - TYPE 2 DIABETES MELLITUS WITHOUT COMPLICATIONS Qualifiers: Diabetes mellitus type: other specified (including MILTON) Diabetes mellitus senior living insulin use: unspecified superintendent terminal insulin use status Diabetes mellitus complication status: with other specified complication Qualified Code (s): E13.69 - Other specified diabetes mellitus with other specified complication (5) Prophylactic measure Assessment/Plan: fen tolerating po monitor vitals/labs full code heparin bid Code(s): Z29.9 - ENCOUNTER FOR PROPHYLACTIC MEASURES, UNSPECIFIED Visit type - Emergency Visit Emergency Visit: Yes ED Registration Date: 11/17/19 Care time: The patient presented to the Emergency Department on the above date and was hospitalized for further evaluation of their emergent condition. - New Patient This patient is new to me today: No - Critical Care Critical Care patient: No - Discharge Referral Referred to [facility] Med P.C.: No
--- NOTE | 2019-11-28 11:52 | PN ---
Progress Note, Physician History of Present Illness: stable no new issues - Current Medication List Current Medications: Active Medications Acetaminophen (Tylenol -) 650 mg PO Q6H PRN PRN Reason: PAIN LEVEL 4 - 6 Last Admin: 11/28/19 11:13 Dose: 650 mg Docusate Sodium (Colace -) 100 mg PO TID [facility] Last Admin: 11/28/19 06:04 Dose: 100 mg Folic Acid (Folic Acid -) 1 mg PO DAILY [facility] Last Admin: 11/28/19 10:06 Dose: 1 mg Heparin Sodium (Porcine) (Heparin -) 5,000 unit SQ BID [facility] Last Admin: 11/28/19 10:06 Dose: 5,000 unit Vancomycin HCl (Vancomycin (Pre-Docked)) 1,000 mg in 250 mls @ 166.667 mls/hr IVPB Q12H [facility]; Protocol Last Admin: 11/28/19 11:12 Dose: 166.667 mls/hr Insulin Aspart (Novolog Vial Sliding Scale -) 1 vial SQ ACHS [facility]; Protocol Last Admin: 11/28/19 11:12 Dose: 10 units Insulin Detemir (Levemir Vial) 30 units SQ [facility] Last Admin: 11/27/19 22:08 Dose: 30 units Insulin Detemir (Levemir Vial) 20 units SQ DAILY@0700 [facility] Last Admin: 11/28/19 06:04 Dose: 20 units Mupirocin (Bactroban 2% Ointment -) 1 applic TP DAILY [facility] Last Admin: 11/28/19 10:07 Dose: 1 applic Ondansetron HCl (Zofran Injection) 4 mg IVPUSH Q6H PRN PRN Reason: NAUSEA AND/OR VOMITING Oxycodone HCl (Roxicodone -) 10 mg PO Q6H PRN PRN Reason: PAIN LEVEL 4 - 6 Last Admin: 11/28/19 11:13 Dose: 10 mg Polyethylene Glycol (Miralax (For Daily Use) -) 17 gm PO DAILY [facility] Last Admin: 11/28/19 10:06 Dose: 17 gm Pregabalin (Lyrica -) 50 mg PO BID [facility] Last Admin: 11/28/19 10:06 Dose: 50 mg Rosuvastatin Calcium (Crestor -) 20 mg PO [facility] Last Admin: 11/27/19 22:07 Dose: 20 mg Senna (Senna -) 2 tab PO HS [facility] Last Admin: 11/27/19 22:08 Dose: 2 tab Tramadol HCl (Ultram -) 50 mg PO Q6H PRN PRN Reason: PAIN LEVEL 6-10 Last Admin: 11/26/19 00:00 Dose: 50 mg - Objective Vital Signs: Vital Signs Temperature 98.0 F 11/28/19 05:42 Pulse Rate 61 11/28/19 05:42 Respiratory Rate 18 11/28/19 09:00 Blood Pressure 133/69 11/28/19 05:42 O2 Sat by Pulse Oximetry (%) 98 11/28/19 09:00 Constitutional: Yes: No Distress, Calm Cardiovascular: Yes: S1, S2 Respiratory: Yes: Regular, CTA Bilaterally Gastrointestinal: Yes: Normal Bowel Sounds, Soft Musculoskeletal: Yes: WNL Extremities: Yes: Other Wound/Incision: Yes: Dressing Dry and Intact Neurological: Yes: Alert, Oriented Psychiatric: Yes: Alert, Oriented Labs: CBC, BMP 11/28/19 07:05 11/28/19 07:05 INR, PTT INR 1.13 (0.83-1.09) H 11/20/19 06:10 Assessment/Plan Problem List - Problems (1) Diabetes Code(s): E11.9 - TYPE 2 DIABETES MELLITUS WITHOUT COMPLICATIONS Qualifiers: Diabetes mellitus type: other specified (including MILTON) Diabetes 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
--- NOTE | 2019-11-28 16:05 | PN ---
Progress Note (short form) - Note Progress Note: Podiatry F/U: Seen/evaluated at bedside NAD. Pain much improved to the left foot. Notes improvement in redness/swelling as well. Denies F/V/N/C/SOB/CP. Afebrile. S/ p left foot incision and drainage. Tolerating IV abx well. GAGE: L foot: pedal pulses palpable 1/4, TG wnl, CFT brisk to all toes. Sutures well coapted over first interspace, no dehiscence noted. No purulent drainage, no fluctuance, surrounding cellulitis resolving well, no soft tissue crepitus, no signs of active infection. Minimal tenderness to palpation. No ischemic changes to the foot. Imp: 64 year old diabetic female s/p left foot incision and drainage 1. Abx per infectious disease. Discussed case, will transition to PO abx. 2. Continue use of bactroban and dry sterile dressing every other day to the left foot. 3. Partial WB left heel with surgical shoe. 4. Discharge to SNF. 5. Patient will f/u 1 week in wound healing center. [phone]. Genesis Yung DPM
[2019-11-28] MEDS: SENNOSIDES 8.6MG TABLET (FP) PO SCH (22:23)
[2019-11-28] MEDS: ROSUVASTATIN CA 20 MG TABLET (FP) PO SCH (22:24)
[2019-11-29] MEDS: VANCOMYCIN 1 GRAM (PRE-DOCKED) 1,000 MG/250 ML BAG IVPB SCH ×2 (00:15→11:27)
[2019-11-29] MEDS: INSULIN (LEVEMIR) 100 UNITS/ML UNITS SQ SCH ×2 (06:10→21:18)
[2019-11-29] MEDS: DOCUSATE SODIUM 100 MG CAPSULE (FP) PO SCH ×3 (06:10→21:17)
[2019-11-29] MEDS: INSULIN SLIDING SCALE (NOVOLOG) 1 VIAL SQ SCH ×4 (06:11→21:18)
[2019-11-29] MEDS: oxyCODONE HCL 5 MG TABLET PO PRN ×3 (06:26→21:52)
[2019-11-29] MEDS: ACETAMINOPHEN 325 MG TABLET (FP) PO PRN ×3 (06:26→21:53)
[2019-11-29 08:29] LABS: BASO % 0.8 % (0-2.0); HEMATOCRIT 35.1 % (32.4-45.2); HEMOGLOBIN 11.5 GM/dL (10.7-15.3); LYMPH % 28.9 % (8-40); MCH 27.3 pg (25.7-33.7); MCHC 32.9 g/dl (32.0-36.0); MEAN CELL VOLUME 82.9 fl (80-96); MEAN PLT VOLUME 6.5 fl (7.5-11.1); MONO % 8.4 % (3.8-10.2); NEUT % 59.9 % (42.8-82.8); PLATELET COUNT 353 K/MM3 (134-434); RBC 4.23 M/mm3 (3.60-5.2); RDW 14.3 % (11.6-15.6); WHITE BLOOD COUNT 10.2 K/mm3 (4.0-10.0)
[2019-11-29 08:47] LABS: ALBUMIN 2.7 g/dl (3.4-5.0); BILIRUBIN,TOTAL 0.5 mg/dL (0.2-1); BLOOD UREA NITROGEN 16.1 mg/dL (7-18); CALCIUM 9.5 mg/dL (8.5-10.1); CREATININE 0.7 mg/dL (0.55-1.3); MAGNESIUM 2.1 mg/dL (1.8-2.4); POTASSIUM 4.5 mmol/L (3.5-5.1); TOT PROT 6.9 g/dl (6.4-8.2)
--- NOTE | 2019-11-29 10:33 | PN ---
Progress Note, Physician History of Present Illness: stable no new issues - Current Medication List Current Medications: Active Medications Acetaminophen (Tylenol -) 650 mg PO Q6H PRN PRN Reason: PAIN LEVEL 4 - 6 Last Admin: 11/29/19 06:26 Dose: 650 mg Docusate Sodium (Colace -) 100 mg PO TID [facility] Last Admin: 11/29/19 06:10 Dose: 100 mg Folic Acid (Folic Acid -) 1 mg PO DAILY [facility] Last Admin: 11/28/19 10:06 Dose: 1 mg Heparin Sodium (Porcine) (Heparin -) 5,000 unit SQ BID [facility] Last Admin: 11/28/19 22:24 Dose: 5,000 unit Vancomycin HCl (Vancomycin (Pre-Docked)) 1,000 mg in 250 mls @ 166.667 mls/hr IVPB Q12H [facility]; Protocol Last Admin: 11/29/19 00:15 Dose: 166.667 mls/hr Insulin Aspart (Novolog Vial Sliding Scale -) 1 vial SQ ACHS [facility]; Protocol Last Admin: 11/29/19 06:11 Dose: Not Given Insulin Detemir (Levemir Vial) 30 units SQ [facility] Last Admin: 11/28/19 22:24 Dose: 30 units Insulin Detemir (Levemir Vial) 20 units SQ DAILY@0700 [facility] Last Admin: 11/29/19 06:10 Dose: 20 units Mupirocin (Bactroban 2% Ointment -) 1 applic TP DAILY [facility] Last Admin: 11/28/19 10:07 Dose: 1 applic Ondansetron HCl (Zofran Injection) 4 mg IVPUSH Q6H PRN PRN Reason: NAUSEA AND/OR VOMITING Oxycodone HCl (Roxicodone -) 10 mg PO Q6H PRN PRN Reason: PAIN LEVEL 4 - 6 Last Admin: 11/29/19 06:26 Dose: 10 mg Polyethylene Glycol (Miralax (For Daily Use) -) 17 gm PO DAILY [facility] Last Admin: 11/28/19 10:06 Dose: 17 gm Pregabalin (Lyrica -) 50 mg PO BID [facility] Last Admin: 11/28/19 22:24 Dose: 50 mg Rosuvastatin Calcium (Crestor -) 20 mg PO [facility] Last Admin: 11/28/19 22:24 Dose: 20 mg Senna (Senna -) 2 tab PO HS [facility] Last Admin: 11/28/19 22:23 Dose: 2 tab Tramadol HCl (Ultram -) 50 mg PO Q6H PRN PRN Reason: PAIN LEVEL 6-10 Last Admin: 11/26/19 00:00 Dose: 50 mg - Objective Vital Signs: Vital Signs Temperature 98.0 F 11/29/19 05:50 Pulse Rate 61 11/29/19 05:50 Respiratory Rate 18 11/29/19 05:50 Blood Pressure 141/67 11/29/19 05:50 O2 Sat by Pulse Oximetry (%) 98 11/28/19 21:00 Constitutional: Yes: No Distress, Calm Cardiovascular: Yes: Regular Rate and Rhythm Respiratory: Yes: Regular, CTA Bilaterally Gastrointestinal: Yes: Normal Bowel Sounds, Soft Musculoskeletal: Yes: WNL Extremities: Yes: WNL Wound/Incision: Yes: Dressing Dry and Intact Neurological: Yes: Alert, Oriented Psychiatric: Yes: Alert, Oriented Labs: CBC, BMP 11/29/19 08:00 11/29/19 08:00 INR, PTT INR 1.13 (0.83-1.09) H 11/20/19 06:10 Assessment/Plan Problem List - Problems (1) Diabetes Code(s): E11.9 - TYPE 2 DIABETES MELLITUS WITHOUT COMPLICATIONS Qualifiers: Diabetes mellitus type: other specified (including MILTON) Diabetes mellitus halfway insulin use: unspecified halfway insulin use status Diabetes mellitus complication status: with other specified complication Qualified Code (s): E13.69 - Other specified diabetes mellitus with other specified complication (2) Wound of foot Code(s): S91.309A - UNSPECIFIED OPEN WOUND, UNSPECIFIED FOOT, INITIAL ENCOUNTER Assessment/Plan Lt toe abscess/paronychia r/o OM s/p drainage Uncontrolled DM Hx of Lung CA HTN HLD plan after todays dose can change to doxy 100 mg po bid rest as per the team
[2019-11-29] MEDS: POLYETHYLENE GLYCOL 3350 119 GM BTL PO SCH (11:11)
[2019-11-29] MEDS: PREGABALIN 50 MG CAPSULE PO SCH ×2 (11:11→21:17)
[2019-11-29] MEDS: HEPARIN NA (PORCINE) 5,000 UNITS/ML 1ML VIAL SQ SCH ×2 (11:11→21:17)
[2019-11-29] MEDS: FOLIC ACID 1 MG TABLET (FP) PO SCH (11:11)
[2019-11-29] MEDS: MUPIROCIN 2% TOPICAL OINTMENT 22 GM TUBE TP SCH (11:11)
[2019-11-29 11:42] LABS: ANISOCYTOSIS 1+; MACROCYTOSIS 0; PLATELET ESTIMATE NORMAL; TEAR DROP CELLS 1+
--- NOTE | 2019-11-29 13:20 | PN ---
Progress Note, Physician Chief Complaint: Minimal pain in foot. Antibiotics completed tomorrow and paln for transfer to [facility] History of Present Illness: Patient is a 64 year old female with a significant past medical history of HTN, HLD, PPM, Type II NIDDM, neuropathy, and breast cancer with lung mets (s/p left lower lobe lobectomy - currently in remission). Patient was admitted for left foot abscess, who is s/p abscess drainage on 11/17/2019 who then developed worsening erythema ascending up the foot onto the ankle. She is s/p I&D drainage of left foot wound on 11/20/2019. - Current Medication List Current Medications: Active Medications Acetaminophen (Tylenol -) 650 mg PO Q6H PRN PRN Reason: PAIN LEVEL 4 - 6 Last Admin: 11/29/19 06:26 Dose: 650 mg Docusate Sodium (Colace -) 100 mg PO TID [facility] Last Admin: 11/29/19 06:10 Dose: 100 mg Doxycycline Hyclate (Vibramycin -) 100 mg PO BID@1000,1800 [facility] Stop: 12/10/19 09:59 Folic Acid (Folic Acid -) 1 mg PO DAILY [facility] Last Admin: 11/29/19 11:11 Dose: 1 mg Heparin Sodium (Porcine) (Heparin -) 5,000 unit SQ BID [facility] Last Admin: 11/29/19 11:11 Dose: 5,000 unit Vancomycin HCl (Vancomycin (Pre-Docked)) 1,000 mg in 250 mls @ 166.667 mls/hr IVPB Q12H [facility]; Protocol Stop: 11/29/19 23:59 Last Admin: 11/29/19 11:27 Dose: 166.667 mls/hr Insulin Aspart (Novolog Vial Sliding Scale -) 1 vial SQ ACHS [facility]; Protocol Last Admin: 11/29/19 11:19 Dose: 10 units Insulin Detemir (Levemir Vial) 30 units SQ HS [facility] Last Admin: 11/28/19 22:24 Dose: 30 units Insulin Detemir (Levemir Vial) 20 units SQ DAILY@0700 [facility] Last Admin: 11/29/19 06:10 Dose: 20 units Mupirocin (Bactroban 2% Ointment -) 1 applic TP DAILY [facility] Last Admin: 11/29/19 11:11 Dose: 1 applic Ondansetron HCl (Zofran Injection) 4 mg IVPUSH Q6H PRN PRN Reason: NAUSEA AND/OR VOMITING Oxycodone HCl (Roxicodone -) 10 mg PO Q6H PRN PRN Reason: PAIN LEVEL 4 - 6 Last Admin: 11/29/19 06:26 Dose: 10 mg Polyethylene Glycol (Miralax (For Daily Use) -) 17 gm PO DAILY [facility] Last Admin: 11/29/19 11:11 Dose: Not Given Pregabalin (Lyrica -) 50 mg PO BID [facility] Last Admin: 11/29/19 11:11 Dose: 50 mg Rosuvastatin Calcium (Crestor -) 20 mg PO [facility] Last Admin: 11/28/19 22:24 Dose: 20 mg Senna (Senna -) 2 tab PO [facility] Last Admin: 11/28/19 22:23 Dose: 2 tab Tramadol HCl (Ultram -) 50 mg PO Q6H PRN PRN Reason: PAIN LEVEL 6-10 Last Admin: 11/26/19 00:00 Dose: 50 mg - Objective Vital Signs: Vital Signs Temperature 98.1 F 11/29/19 11:00 Pulse Rate 67 11/29/19 11:00 Respiratory Rate 18 11/29/19 11:00 Blood Pressure 133/68 11/29/19 11:00 O2 Sat by Pulse Oximetry (%) 98 11/29/19 09:00 Additional Findings/Remarks: Constitutional: Yes: Well Nourished, No Distress, Calm Eyes: Yes: WNL, Conjunctiva Clear HENT: Yes: WNL, Atraumatic, Normocephalic Neck: Yes: WNL, Supple, Trachea Midline Cardiovascular: Yes: WNL, Regular Rate and Rhythm Respiratory: Yes: WNL, Regular, CTA Bilaterally Gastrointestinal: Yes: WNL, Normal Bowel Sounds ...Rectal Exam: Yes: Deferred Genitourinary: Yes: WNL Breast(s): Yes: WNL Musculoskeletal: Yes: WNL Extremities: Yes: Other (wound to left toe) Edema: No Peripheral Pulses WNL: Yes Peripheral Pulses: Left Radial: 2+, Right Radial: 2+, Left Doralis Pedis: 0 ( dressing in place), Right Dorsalis Pedis: 2+, Left Femoral: 2+, Right Femoral: 2 + Integumentary: Yes: WNL Wound/Incision: Yes: Dressing Dry and Intact Neurological: Yes: WNL, Alert, Oriented ...Motor Strength: WNL Psychiatric: Yes: WNL Labs: CBC, BMP 11/29/19 08:00 11/29/19 08:00 INR, PTT INR 1.13 (0.83-1.09) H 11/20/19 06:10 Problem List - Problems (1) Diabetes Assessment/Plan: BGM AC/HS with novoolog sliding scale c/w levemir 20u in am, 30u in pm diabetic diet f/u with endocrinology in [place] on [place] Code(s): E11.9 - TYPE 2 DIABETES MELLITUS WITHOUT COMPLICATIONS Qualifiers: Diabetes mellitus type: other specified (including MILTON) Diabetes mellitus 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 operator insulin use: unspecified residential insulin use status Diabetes mellitus complication status: with other specified complication Qualified Code (s): E13.69 - Other specified diabetes mellitus with other specified complication (2) HLD (hyperlipidemia) Assessment/Plan: c/w crestor low cholesterol diet Code(s): E78.5 - HYPERLIPIDEMIA, UNSPECIFIED (3) HTN (hypertension) Assessment/Plan: BP controlled off meds will assess for continuation of lisinipril on dc home Code(s): I10 - ESSENTIAL (PRIMARY) HYPERTENSION (4) Prophylactic measure Assessment/Plan: FEN Fluids: adequate PO intake Electrolytes: replete as indicated Nutrition: diabetic diet DVT prophylaxis: heparin sq oob, ambulation Dispo: continues to require inpatient care. Full code discharge planning to SNF Code(s): Z29.9 - ENCOUNTER FOR PROPHYLACTIC MEASURES, UNSPECIFIED (5) Wound of foot Assessment/Plan: Left toe infection/diabetic wound s/p I&D on 11/20/19. wound cx with MRSA completion of vanco IV today and then daptomycin 100mg bid vascular/podiatry following Code(s): S91.309A - UNSPECIFIED OPEN WOUND, UNSPECIFIED FOOT, INITIAL ENCOUNTER Visit type - Emergency Visit Emergency Visit: Yes ED Registration Date: 11/17/19 Care time: The patient presented to the Emergency Department on the above date and was hospitalized for further evaluation of their emergent condition. - New Patient This patient is new to me today: No - Critical Care Critical Care patient: No - Discharge Referral Referred to [facility] Med P.C.: No
[2019-11-29] MEDS ORDERED: INSULIN (NOVOLOG) ASPART 100 UNITS/ML 10ML VIAL ONE (21:00)
[2019-11-29] MEDS: SENNOSIDES 8.6MG TABLET (FP) PO SCH (21:17)
[2019-11-29] MEDS: ROSUVASTATIN CA 20 MG TABLET (FP) PO SCH (21:17)
[2019-11-30] MEDS: oxyCODONE HCL 5 MG TABLET PO PRN ×2 (06:52→19:43)
[2019-11-30] MEDS: DOCUSATE SODIUM 100 MG CAPSULE (FP) PO SCH ×3 (06:52→21:56)
[2019-11-30] MEDS: ACETAMINOPHEN 325 MG TABLET (FP) PO PRN ×2 (06:53→19:43)
[2019-11-30] MEDS: INSULIN (LEVEMIR) 100 UNITS/ML UNITS SQ SCH ×2 (06:53→21:56)
[2019-11-30] MEDS: INSULIN SLIDING SCALE (NOVOLOG) 1 VIAL SQ SCH ×4 (06:54→21:57)
--- NOTE | 2019-11-30 07:57 | DS ---
Physical Exam: SUBJECTIVE: Patient seen and examined Patient is a 64 year old female with a significant past medical history of HTN, HLD, PPM, Type II NIDDM, neuropathy, and breast cancer with lung mets (s/p left lower lobe lobectomy - currently in remission). Patient was admitted for left foot abscess, who is s/p abscess drainage on 11/17/2019 who then developed worsening erythema ascending up the foot onto the ankle. She is s/p I&D drainage of left foot wound on 11/20/2019. OBJECTIVE: Vital Signs Period Temp Pulse Resp BP Sys/Combs Pulse Ox Last 24 Hr 97.8 F-98.2 F 60-67 18-20 125-141/65-69 98-98 PHYSICAL EXAM Constitutional: Yes: Well Nourished, No Distress, Calm Eyes: Yes: WNL, Conjunctiva Clear HENT: Yes: WNL, Atraumatic, Normocephalic Neck: Yes: WNL, Supple, Trachea Midline Cardiovascular: Yes: WNL, Regular Rate and Rhythm Respiratory: Yes: WNL, Regular, CTA Bilaterally Gastrointestinal: Yes: WNL, Normal Bowel Sounds ...Rectal Exam: Yes: Deferred Genitourinary: Yes: WNL Breast(s): Yes: WNL Musculoskeletal: Yes: WNL Extremities: Yes: Other (wound to left toe) Edema: No Peripheral Pulses WNL: Yes Peripheral Pulses: Left Radial: 2+, Right Radial: 2+, Left Doralis Pedis: 0 ( dressing in place), Right Dorsalis Pedis: 2+, Left Femoral: 2+, Right Femoral: 2 + Integumentary: Yes: WNL Wound/Incision: Yes: Dressing Dry and Intact Neurological: Yes: WNL, Alert, Oriented ...Motor Strength: WNL Psychiatric: Yes: WNL LABS Laboratory Results - last 24 hr 11/29/19 11/29/19 11/29/19 08:00 08:00 11:13 WBC 10.2 H RBC 4.23 Hgb 11.5 Hct 35.1 MCV 82.9 MCH 27.3 MCHC 32.9 RDW 14.3 Plt Count 353 MPV 6.5 L Absolute Neuts (auto) 6.1 Neutrophils % 59.9 Neutrophils % (Manual) 46.5 Band Neutrophils % 9.1 Lymphocytes % 28.9 Lymphocytes % (Manual) 29.3 Monocytes % 8.4 Monocytes % (Manual) 5 Eosinophils % 2.0 Eosinophils % (Manual) 2.0 D Basophils % 0.8 Basophils % (Manual) 1.0 D Myelocytes % (Man) 0 Promyelocytes % (Man) 0 Blast Cells % (Manual) 0 Nucleated RBC % 0 Metamyelocytes 0 D Hypochromia 0 Platelet Estimate Normal Polychromasia 1+ Poikilocytosis 1+ Anisocytosis 1+ Microcytosis 1+ Macrocytosis 0 Spherocytes 1+ Tear Drop Cells 1+ Stehekin Cells 1+ Sodium 138 Potassium 4.5 Chloride 101 Carbon Dioxide 30 Anion Gap 6 L BUN 16.1 Creatinine 0.7 Est GFR (CKD-EPI)AfAm 106.87 Est GFR (CKD-EPI)NonAf 92.21 POC Glucometer 259 Random Glucose 145 H Calcium 9.5 Magnesium 2.1 Total Bilirubin 0.5 AST 14 L ALT 16 Alkaline Phosphatase 89 Total Protein 6.9 Albumin 2.7 L 11/29/19 11/29/19 11/30/19 16:54 21:15 06:45 WBC RBC Hgb Hct MCV MCH MCHC RDW Plt Count MPV Absolute Neuts (auto) Neutrophils % Neutrophils % (Manual) Band Neutrophils % Lymphocytes % Lymphocytes % (Manual) Monocytes % Monocytes % (Manual) Eosinophils % Eosinophils % (Manual) Basophils % Basophils % (Manual) Myelocytes % (Man) Promyelocytes % (Man) Blast Cells % (Manual) Nucleated RBC % Metamyelocytes Hypochromia Platelet Estimate Polychromasia Poikilocytosis Anisocytosis Microcytosis Macrocytosis Spherocytes Tear Drop Cells Ritchie Cells Sodium Potassium Chloride Carbon Dioxide Anion Gap BUN Creatinine Est GFR (CKD-EPI)AfAm Est GFR (CKD-EPI)NonAf POC Glucometer 223 215 189 Random Glucose Calcium Magnesium Total Bilirubin AST ALT Alkaline Phosphatase Total Protein Albumin HOSPITAL COURSE: Date of Admission:11/17/19 Date of Discharge: 11/30/19 Problem List - Problems (1) Diabetes Assessment/Plan: BGM AC/HS with novoolog sliding scale c/w levemir 20u in am, 30u in pm diabetic diet f/u with endocrinology [place] Code(s): E11.9 - TYPE 2 DIABETES MELLITUS WITHOUT COMPLICATIONS Qualifiers: Diabetes mellitus type: other specified (including MILTON) 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 jail insulin use status Diabetes mellitus complication status: with other specified complication Qualified Code (s): E13.69 - Other specified diabetes mellitus with other specified complication (2) HLD (hyperlipidemia) Assessment/Plan: c/w crestor low cholesterol diet Code(s): E78.5 - HYPERLIPIDEMIA, UNSPECIFIED (3) HTN (hypertension) Assessment/Plan: BP controlled off meds will assess for continuation of lisinipril on dc home Code(s): I10 - ESSENTIAL (PRIMARY) HYPERTENSION (4) Prophylactic measure Assessment/Plan: FEN Fluids: adequate PO intake Electrolytes: replete as indicated Nutrition: diabetic diet DVT prophylaxis: heparin sq during hospital stay oob, ambulation Dispo: discharge planning to SNF Code(s): Z29.9 - ENCOUNTER FOR PROPHYLACTIC MEASURES, UNSPECIFIED (5) Wound of foot Assessment/Plan: Left toe infection/diabetic wound s/p I&D on 11/20/19. wound cx with MRSA completion of vanco IV today and then daptomycin 100mg bid x 1 week vascular/podiatry following Code(s): S91.309A - UNSPECIFIED OPEN WOUND, UNSPECIFIED FOOT, INITIAL ENCOUNTER Minutes to complete discharge: 45 Discharge Summary Problems reviewed: Yes Reason For Visit: WOUND OF FOOT, DIABETES MELLITUS Current Active Problems Diabetes (Acute) HLD (hyperlipidemia) (Acute) HTN (hypertension) (Acute) Prophylactic measure (Acute) Wound of foot (Acute) Hospital Course: Date of Admission:11/17/19 Date of Discharge: 11/30/19 Problem List - Problems (1) Diabetes Assessment/Plan: BGM AC/HS with novoolog sliding scale c/w levemir 20u in am, 30u in pm diabetic diet f/u with endocrinology [place] Code(s): E11.9 - TYPE 2 DIABETES MELLITUS WITHOUT COMPLICATIONS Qualifiers: Diabetes mellitus type: other specified (including MILTON) Diabetes mellitus jail insulin use: unspecified jail insulin use status Diabetes mellitus complication status: with other specified complication Qualified Code (s): E13.69 - Other specified diabetes mellitus with other specified complication (2) HLD (hyperlipidemia) Assessment/Plan: c/w crestor low cholesterol diet Code(s): E78.5 - HYPERLIPIDEMIA, UNSPECIFIED (3) HTN (hypertension) Assessment/Plan: BP controlled off meds will assess for continuation of lisinipril on dc home Code(s): I10 - ESSENTIAL (PRIMARY) HYPERTENSION (4) Prophylactic measure Assessment/Plan: FEN Fluids: adequate PO intake Electrolytes: replete as indicated Nutrition: diabetic diet DVT prophylaxis: heparin sq during hospital stay oob, ambulation Dispo: discharge planning to SNF Code(s): Z29.9 - ENCOUNTER FOR PROPHYLACTIC MEASURES, UNSPECIFIED (5) Wound of foot Assessment/Plan: Left toe infection/diabetic wound s/p I&D on 11/20/19. wound cx with MRSA completion of vanco IV today and then daptomycin 100mg bid x 1 week vascular/podiatry following Code(s): S91.309A - UNSPECIFIED OPEN WOUND, UNSPECIFIED FOOT, INITIAL ENCOUNTER - Instructions Diet, Activity, Other Instructions: DISCHARGE YOUR VISIT You came to the hospital because had an infection in your foot. You had an Incision and drainage with Dr Yung. You were given Vancomycin antibiotics for 12 days and will continue with oral antiobiotics for another week. MEDICATIONS Please continue to take your home medications as prescribed. There was some changes: Doyxcycline 100mg twice daily x 1 week DIET Continue your home diet ADDITIONAL CARE Please make an appointment to see your primary care provider, Dr. Yung in the wound clinic 1 week from today. ADDITIONAL INFORMATION Please call 911 or come directly to the emergency department if you experience unusual headache, vision change, shortness of breath, chest pain, numbness, tingling, loss of alertness/awareness, loss of function, unusual bleeding or any alarming symptoms. Thank you for allowing me to care for you. Dillon Nelson, ACNP, DNP [facility] Referrals: Darin Yung MD [Staff Physician] - ON STAFF,NOT [Primary Care Provider] - Disposition: [facility] HOME [facility]ILITY - Home Medications Comprehensive Discharge Medication List: Ambulatory Orders Aspirin [Aspirin EC] 81 mg PO DAILY 11/16/19 Folic Acid 1 mg PO DAILY 11/16/19 Insulin Glargine,Hum.rec.anlog [Lantus] 19 unit SQ HS 11/16/19 Insulin Lispro [Humalog] 15 unit SQ TID 11/16/19 Lisinopril 30 mg PO DAILY 11/16/19 Metformin HCl [Glucophage] 500 mg PO BID 11/16/19 Pregabalin 50 mg PO BID 11/16/19 Rosuvastatin Calcium 20 mg PO HS 11/16/19 Tramadol HCl 50 mg PO PRN PRN 11/16/19 Acetaminophen [Tylenol .Regular Strength -] 650 mg PO Q6H PRN tablet 11/29/19 Docusate Sodium [Colace -] 100 mg PO TID capsule 11/29/19 Folic Acid - 1 mg PO DAILY tablet 11/29/19 Insulin (Levemir) [Levemir Vial] 20 units SQ DAILY@0700 units 11/29/19 Insulin (Levemir) [Levemir Vial] 30 units SQ HS units 11/29/19 Mupirocin Ointment [Bactroban 2% Ointment -] 1 applic TP DAILY applic 11/29/19 Polyethylene Glycol 3350 [Miralax 119 gm Btl -] 17 gm PO DAILY bottle 11/29/19 Pregabalin [Lyrica -] 50 mg PO BID capsule MDD 100mg 11/29/19 Sennosides [Senna -] 2 tab PO HS tablet 11/29/19 Problem List - Problems (1) Diabetes Code(s): E11.9 - TYPE 2 DIABETES MELLITUS WITHOUT COMPLICATIONS Qualifiers: Diabetes mellitus type: other specified (including MILTON) 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 jail insulin use status Diabetes mellitus complication status: with other specified complication Qualified Code (s): E13.69 - Other specified diabetes mellitus with other specified complication (2) HLD (hyperlipidemia) Code(s): E78.5 - HYPERLIPIDEMIA, UNSPECIFIED (3) HTN (hypertension) Code(s): I10 - ESSENTIAL (PRIMARY) HYPERTENSION (4) Prophylactic measure Code(s): Z29.9 - ENCOUNTER FOR PROPHYLACTIC MEASURES, UNSPECIFIED (5) Wound of foot Code(s): S91.309A - UNSPECIFIED OPEN WOUND, UNSPECIFIED FOOT, INITIAL ENCOUNTER This patient is new to me today: No Emergency Visit: Yes ED Registration Date: 11/17/19 Care time: The patient presented to the Emergency Department on the above date and was hospitalized for further evaluation of their emergent condition. Critical Care patient: No - Discharge Referral Referred to [facility] Med P.C.: No
[2019-11-30 08:34] LABS: BASO % 0.8 % (0-2.0); EOS % 2.4 % (0-4.5); HEMATOCRIT 34.7 % (32.4-45.2); HEMOGLOBIN 11.6 GM/dL (10.7-15.3); LYMPH % 31.7 % (8-40); MCH 27.6 pg (25.7-33.7); MCHC 33.5 g/dl (32.0-36.0); MEAN CELL VOLUME 82.6 fl (80-96); MEAN PLT VOLUME 6.7 fl (7.5-11.1); MONO % 6.8 % (3.8-10.2); NEUT % 58.3 % (42.8-82.8); PLATELET COUNT 363 K/MM3 (134-434); RDW 14.4 % (11.6-15.6)
[2019-11-30 09:02] LABS: ALBUMIN 2.7 g/dl (3.4-5.0); BILIRUBIN,TOTAL 0.6 mg/dL (0.2-1); BLOOD UREA NITROGEN 15.8 mg/dL (7-18); CREATININE 0.7 mg/dL (0.55-1.3); MAGNESIUM 2.1 mg/dL (1.8-2.4); POTASSIUM 4.2 mmol/L (3.5-5.1); TOT PROT 6.7 g/dl (6.4-8.2)
[2019-11-30] MEDS: FOLIC ACID 1 MG TABLET (FP) PO SCH (09:50)
[2019-11-30] MEDS: DOXYCYCLINE HYCLATE 100 MG CAPSULE PO SCH ×2 (09:50→18:09)
[2019-11-30] MEDS: HEPARIN NA (PORCINE) 5,000 UNITS/ML 1ML VIAL SQ SCH ×2 (09:50→21:56)
[2019-11-30] MEDS: traMADol HCL 50 MG TABLET PO PRN (09:50)
[2019-11-30] MEDS: MUPIROCIN 2% TOPICAL OINTMENT 22 GM TUBE TP SCH (09:53)
[2019-11-30] MEDS: PREGABALIN 50 MG CAPSULE PO SCH ×2 (09:55→21:57)
[2019-11-30] MEDS: POLYETHYLENE GLYCOL 3350 119 GM BTL PO SCH (09:58)
[2019-11-30] MEDS ORDERED: INSULIN (NOVOLOG) ASPART 100 UNITS/ML 10ML VIAL ONE ×2 (11:28→21:44)
--- NOTE | 2019-11-30 12:23 | PN ---
Progress Note, Physician History of Present Illness: stable no new issues - Current Medication List Current Medications: Active Medications Acetaminophen (Tylenol -) 650 mg PO Q6H PRN PRN Reason: PAIN LEVEL 4 - 6 Last Admin: 11/30/19 06:53 Dose: 650 mg Docusate Sodium (Colace -) 100 mg PO TID [facility] Last Admin: 11/30/19 06:52 Dose: 100 mg Doxycycline Hyclate (Vibramycin -) 100 mg PO BID@1000,1800 [facility] Stop: 12/07/19 09:59 Last Admin: 11/30/19 09:50 Dose: 100 mg Folic Acid (Folic Acid -) 1 mg PO DAILY [facility] Last Admin: 11/30/19 09:50 Dose: 1 mg Heparin Sodium (Porcine) (Heparin -) 5,000 unit SQ BID [facility] Last Admin: 11/30/19 09:50 Dose: 5,000 unit Insulin Aspart (Novolog Vial Sliding Scale -) 1 vial SQ [facility]; Protocol Last Admin: 11/30/19 11:29 Dose: 6 units Insulin Detemir (Levemir Vial) [address] [facility] Last Admin: 11/29/19 21:18 Dose: 30 units Insulin Detemir (Levemir Vial) 20 units SQ DAILY@0700 [facility] Last Admin: 11/30/19 06:53 Dose: 20 units Mupirocin (Bactroban 2% Ointment -) 1 applic TP DAILY [facility] Last Admin: 11/30/19 09:53 Dose: 1 applic Ondansetron HCl (Zofran Injection) 4 mg IVPUSH Q6H PRN PRN Reason: NAUSEA AND/OR VOMITING Oxycodone HCl (Roxicodone -) 10 mg PO Q6H PRN PRN Reason: PAIN LEVEL 4 - 6 Last Admin: 11/30/19 06:52 Dose: 10 mg Polyethylene Glycol (Miralax (For Daily Use) -) 17 gm PO DAILY [facility] Last Admin: 11/30/19 09:58 Dose: 17 gm Pregabalin (Lyrica -) 50 mg PO BID [facility] Last Admin: 11/30/19 09:55 Dose: 50 mg Rosuvastatin Calcium (Crestor -) [address] [facility] Last Admin: 11/29/19 21:17 Dose: 20 mg Senna (Senna -) 2 tab PO HS [facility] Last Admin: 11/29/19 21:17 Dose: 2 tab Tramadol HCl (Ultram -) 50 mg PO Q6H PRN PRN Reason: PAIN LEVEL 6-10 Last Admin: 11/30/19 09:50 Dose: 50 mg - Objective Vital Signs: Vital Signs Temperature 97.8 F 11/30/19 06:00 Pulse Rate 60 11/30/19 06:00 Respiratory Rate 18 11/30/19 06:00 Blood Pressure 129/67 11/30/19 06:00 O2 Sat by Pulse Oximetry (%) 98 11/29/19 21:00 Constitutional: Yes: No Distress, Calm Cardiovascular: Yes: S1, S2 Respiratory: Yes: Regular, CTA Bilaterally Gastrointestinal: Yes: Normal Bowel Sounds, Soft Musculoskeletal: Yes: WNL Extremities: Yes: WNL Wound/Incision: Yes: Dressing Dry and Intact Labs: CBC, BMP 11/30/19 07:44 11/30/19 07:44 INR, PTT INR 1.13 (0.83-1.09) H 11/20/19 06:10 Assessment/Plan Problem List - Problems (1) Diabetes Code(s): E11.9 - TYPE 2 DIABETES MELLITUS WITHOUT COMPLICATIONS Qualifiers: Diabetes mellitus type: other specified (including MILTON) Diabetes mellitus terminologist insulin use: unspecified terminologist insulin use status Diabetes mellitus complication status: with other specified complication Qualified Code (s): E13.69 - Other specified diabetes mellitus with other specified complication (2) Wound of foot Code(s): S91.309A - UNSPECIFIED OPEN WOUND, UNSPECIFIED FOOT, INITIAL ENCOUNTER Assessment/Plan Lt toe abscess/paronychia r/o OM s/p drainage Uncontrolled DM Hx of Lung CA HTN HLD plan doxy 100 mg po bid wound care
[2019-11-30 12:34] LABS: ANISOCYTOSIS 1+; MACROCYTOSIS 0; PLATELET ESTIMATE NORMAL
[2019-11-30] MEDS: ROSUVASTATIN CA 20 MG TABLET (FP) PO SCH (21:56)
[2019-11-30] MEDS: SENNOSIDES 8.6MG TABLET (FP) PO SCH (21:57)
[2019-12-01] MEDS: ACETAMINOPHEN 325 MG TABLET (FP) PO PRN (02:45)
[2019-12-01] MEDS: oxyCODONE HCL 5 MG TABLET PO PRN (02:45)
[2019-12-01] MEDS: DOCUSATE SODIUM 100 MG CAPSULE (FP) PO SCH ×2 (06:39→13:42)
[2019-12-01] MEDS: traMADol HCL 50 MG TABLET PO PRN (06:40)
[2019-12-01] MEDS: INSULIN SLIDING SCALE (NOVOLOG) 1 VIAL SQ SCH ×2 (06:40→11:00)
[2019-12-01] MEDS: INSULIN (LEVEMIR) 100 UNITS/ML UNITS SQ SCH (06:40)
[2019-12-01 09:01] LABS: ALBUMIN 2.7 g/dl (3.4-5.0); BILIRUBIN,TOTAL 0.4 mg/dL (0.2-1); CALCIUM 8.9 mg/dL (8.5-10.1); CREATININE 0.6 mg/dL (0.55-1.3); MAGNESIUM 1.9 mg/dL (1.8-2.4); POTASSIUM 4.2 mmol/L (3.5-5.1); TOT PROT 6.6 g/dl (6.4-8.2)
[2019-12-01] MEDS: PREGABALIN 50 MG CAPSULE PO SCH (09:24)
[2019-12-01] MEDS: DOXYCYCLINE HYCLATE 100 MG CAPSULE PO SCH (09:24)
[2019-12-01] MEDS: FOLIC ACID 1 MG TABLET (FP) PO SCH (09:24)
[2019-12-01] MEDS: HEPARIN NA (PORCINE) 5,000 UNITS/ML 1ML VIAL SQ SCH (09:24)
[2019-12-01] MEDS: POLYETHYLENE GLYCOL 3350 119 GM BTL PO SCH (09:24)
[2019-12-01] MEDS: MUPIROCIN 2% TOPICAL OINTMENT 22 GM TUBE TP SCH (09:26)
--- NOTE | 2019-12-01 10:36 | PN ---
Progress Note, Physician History of Present Illness: stable no new issues - Current Medication List Current Medications: Active Medications Acetaminophen (Tylenol -) 650 mg PO Q6H PRN PRN Reason: PAIN LEVEL 4 - 6 Last Admin: 12/01/19 02:45 Dose: 650 mg Docusate Sodium (Colace -) 100 mg PO TID [facility] Last Admin: 12/01/19 06:39 Dose: 100 mg Doxycycline Hyclate (Vibramycin -) 100 mg PO BID@1000,1800 [facility] Stop: 12/07/19 09:59 Last Admin: 12/01/19 09:24 Dose: 100 mg Folic Acid (Folic Acid -) 1 mg PO DAILY [facility] Last Admin: 12/01/19 09:24 Dose: 1 mg Heparin Sodium (Porcine) (Heparin -) 5,000 unit SQ BID [facility] Last Admin: 12/01/19 09:24 Dose: 5,000 unit Insulin Aspart (Novolog Vial Sliding Scale -) 1 vial SQ [facility]; Protocol Last Admin: 12/01/19 06:40 Dose: Not Given Insulin Detemir (Levemir Vial) 30 units SQ [facility] Last Admin: 11/30/19 21:56 Dose: 30 units Insulin Detemir (Levemir Vial) 20 units SQ DAILY@0700 [facility] Last Admin: 12/01/19 06:40 Dose: 20 units Mupirocin (Bactroban 2% Ointment -) 1 applic TP DAILY [facility] Last Admin: 12/01/19 09:26 Dose: 1 applic Ondansetron HCl (Zofran Injection) 4 mg IVPUSH Q6H PRN PRN Reason: NAUSEA AND/OR VOMITING Oxycodone HCl (Roxicodone -) 10 mg PO Q6H PRN PRN Reason: PAIN LEVEL 4 - 6 Last Admin: 12/01/19 02:45 Dose: 10 mg Polyethylene Glycol (Miralax (For Daily Use) -) 17 gm PO DAILY [facility] Last Admin: 12/01/19 09:24 Dose: 17 gm Pregabalin (Lyrica -) 50 mg PO BID [facility] Last Admin: 12/01/19 09:24 Dose: 50 mg Rosuvastatin Calcium (Crestor -) 20 mg PO [facility] Last Admin: 11/30/19 21:56 Dose: 20 mg Senna (Senna -) 2 tab PO HS [facility] Last Admin: 11/30/19 21:57 Dose: 2 tab Tramadol HCl (Ultram -) 50 mg PO Q6H PRN PRN Reason: PAIN LEVEL 6-10 Last Admin: 12/01/19 06:40 Dose: 50 mg - Objective Vital Signs: Vital Signs Temperature 97.4 F L 12/01/19 05:55 Pulse Rate 60 12/01/19 05:55 Respiratory Rate 18 12/01/19 05:55 Blood Pressure 115/59 L 12/01/19 05:55 O2 Sat by Pulse Oximetry (%) 99 11/30/19 21:00 Constitutional: Yes: No Distress, Calm Cardiovascular: Yes: S1, S2 Respiratory: Yes: Regular, CTA Bilaterally Gastrointestinal: Yes: Normal Bowel Sounds, Soft Musculoskeletal: Yes: WNL Extremities: Yes: WNL Neurological: Yes: Alert, Oriented Psychiatric: Yes: Alert, Oriented Labs: CBC, BMP 12/01/19 07:23 12/01/19 07:23 INR, PTT INR 1.13 (0.83-1.09) H 11/20/19 06:10 Assessment/Plan Problem List - Problems (1) Diabetes Code(s): E11.9 - TYPE 2 DIABETES MELLITUS WITHOUT COMPLICATIONS Qualifiers: Diabetes mellitus type: other specified (including [place]) Diabetes mellitus tripoler insulin use: unspecified custodial insulin use status Diabetes mellitus complication status: with other specified complication Qualified Code (s): E13.69 - Other specified diabetes mellitus with other specified complication (2) Wound of foot Code(s): S91.309A - UNSPECIFIED OPEN WOUND, UNSPECIFIED FOOT, INITIAL ENCOUNTER Assessment/Plan Lt toe abscess/paronychia r/o OM s/p drainage Uncontrolled DM Hx of Lung CA HTN HLD plan doxy 100 mg po bid wound care
[2019-12-01 11:14] LABS: BASO % 0.6 % (0-2.0); EOS % 2.1 % (0-4.5); HEMATOCRIT 36.3 % (32.4-45.2); LYMPH % 25.8 % (8-40); MCH 27.3 pg (25.7-33.7); MCHC 33.1 g/dl (32.0-36.0); MEAN CELL VOLUME 82.5 fl (80-96); MEAN PLT VOLUME 6.9 fl (7.5-11.1); MONO % 5.6 % (3.8-10.2); NEUT % 65.9 % (42.8-82.8); PLATELET COUNT 372 K/MM3 (134-434); RBC 4.39 M/mm3 (3.60-5.2); RDW 14.3 % (11.6-15.6); WHITE BLOOD COUNT 8.8 K/mm3 (4.0-10.0)
[2019-12-01 11:40] VITALS: BP 133/85; PULSE 64; TEMP 98
== END 2019-12-01 15:37 | DRG 603 ==
LOC: FER 22:37 → FM/S 11-17 01:25 → J4S 11-19 21:30 → J6S 11-21 14:59
PROVIDERS: ADMIT Internal Medicine
PROC: 0J9Q0ZX Drainage of Right Foot Subcutaneous Tissue and Fascia, Open Approach, Diagnostic (ICD-10-PCS; principal; 2019-11-20 09:00)
DX: L08.89 Other specified local infections of the skin and subcutaneous tissue (principal); S91.309A Unspecified open wound, unspecified foot, initial encounter; E11.40 Type 2 diabetes mellitus with diabetic neuropathy, unspecified; I10 Essential (primary) hypertension; E78.5 Hyperlipidemia, unspecified; L03.032 Cellulitis of left toe; L60.0 Ingrowing nail; E11.65 Type 2 diabetes mellitus with hyperglycemia; B95.61 Methicillin susceptible Staphylococcus aureus infection as the cause of diseases classified elsewhere; E13.69 Other specified diabetes mellitus with other specified complication; Z95.0 Presence of cardiac pacemaker; Z85.118 Personal history of other malignant neoplasm of bronchus and lung; Z85.3 Personal history of malignant neoplasm of breast
CPT/HCPCS: 36415; 73630-TC-LT; 80048; 80053; 82962; 83036; 83735; 85025; 85610; 85651; 86140; 87070; 87186; 87205; 88304-TC; 93005; 93923; 94760; 97116-GP; 97162-GP; 99282-25; G0480; J1644